=== PATIENT | male | born 1935 | race Caucasian/White ===

== ENCOUNTER 2019-08-16 15:00 | Emergency (ER) | payer OTHER ==
--- NOTE | 2019-08-16 17:06 | RAD REPORT ---
EXAM DESCRIPTION: RAD - Chest Single View - 08/16/2019 5:01 pm CLINICAL HISTORY: COUGH Chest pain. COMPARISON: CHEST SINGLE VIEW dated 01/06/2015; CHEST SINGLE VIEW dated 01/05/2015; CHEST PA AND LAT 2 VIEW dated 07/14/2014 FINDINGS: Portable technique limits examination quality. The lungs are grossly clear. The heart is moderately enlarged with a tortuous thoracic aorta. Dual le ad pacer device is present. IMPRESSION: No acute intrathoracic process suspected.
--- NOTE | 2019-08-16 17:36 | ER ---
Nurse's Notes [facility] Name: Tony Orellana Age: 83 yrs Sex: Male : 1935 Arrival Date: 08/16/2019 Time: 15:03 Bed 14 Private MD: Gianni Carroll V Diagnosis: Acute upper respiratory infection, unspecified Presentation: 08/15 15:20 Chief complaint: Patient states: My grand daughter who is my medical power of contracts attorney, ca1 is positive for Covid-19. Before she quarantined herself we had constant contact. I've been coughing a little bit 2-3 days, no SOB, fever today at 103F. Did not take any Tylenol. Last Sunday, I had a colonoscopy. It got me really tired. I just want to let you know too. Coronavirus screen: Patient reports a cough. Patient denies shortness of breath or difficulty breathing. Patient reports a measured and/or subjective temperature greater than 100.4F. Patient denies travel on a cruise ship or to a country the [facility] currently lists as an affected area. Patient reports contact with known and/or suspected case of COVID-19. Surgical mask in place, instructed to keep at all times and distance self from others in the lobby. Verbalized understanding. Ebola Screen: Patient negative for fever greater than or equal to 101.5 degrees Fahrenheit, and additional compatible Ebola Virus Disease symptoms Patient denies exposure to infectious person. Patient denies travel to an Ebola-affected area in the 21 days before illness onset. No symptoms or risks identified at this time. Initial Sepsis Screen: Does the patient meet any 2 criteria? No. Patient's initial sepsis screen is negative. Does the patient have a suspected source of infection? No. Patient's initial sepsis screen is negative. Risk Assessment: Do you want to hurt yourself or someone else? Patient reports no desire to harm self or others. Onset of symptoms was August 16, 2019. 15:20 Method Of Arrival: Ambulatory ca1 15:20 Acuity: JASON 3 ca1 Triage Assessment: 16:00 General: Appears in no apparent distress. comfortable, Behavior is calm, cooperative. ls4 16:00 Pain: Denies pain. ls4 Historical: - Allergies: 15:29 Tape; ca1 - Home Meds: 15:29 finasteride 5 mg oral tab 1 tab once daily [Active]; losartan 100 mg oral tab 1 tab ca1 once daily [Active]; atorvastatin 40 mg oral tab 1 tab once daily [Active]; gabapentin 100 mg oral cap [Active]; Xarelto 15 mg oral tab [Active]; amlodipine 5 mg tab 1 tab once daily [Active]; hydrochlorothiazide 12.5 mg Oral tab 1 tab once daily [Active]; aspirin 81 mg Oral chew 1 tab once daily [Active]; - PMHx: 15:29 Hypertension; Atrial Fib; Pacemaker; High Cholesterol; ca1 - PSHx: 15:29 Heart stents; Cholecystectomy; ca1 - Immunization history:: Adult Immunizations up to date. - Social history:: Smoking status: Patient denies any tobacco usage or history of. Screenin:56 Abuse screen: Denies threats or abuse. Denies injuries from another. Nutritional ls4 screening: No deficits noted. Tuberculosis screening: No symptoms or risk factors identified. Fall Risk None identified. Assessment: 16:00 General: Appears in no apparent distress. comfortable, Behavior is calm, cooperative. ls4 16:00 Neuro: No deficits noted. Cardiovascular: No deficits noted. Respiratory: No deficits ls4 noted. Derm: No signs and/or symptoms reported regarding the dermatologic system. Musculoskeletal: No deficits noted. No signs and/or symptoms reported regarding the musculoskeletal system. Vital Signs: 15:20 BP 107 / 72; Pulse 56; Resp 18 S; Temp 99.4(O); Pulse Ox 98% on R/A; Weight 81.65 kg ca1 (R); Height 5 ft. 10 in. (177.80 cm) (R); 18:01 BP 110 / 70; Pulse 58; Resp 16; Temp 98.7(O); Pulse Ox 99% on R/A; Pain 0/10; ls4 15:20 Body Mass Index 25.83 (81.65 kg, 177.80 cm) ca1 ED Course: 15:03 Patient arrived in ED. ag5 15:03 Gianni Carroll MD is Private Physician. ag5 15:25 Triage completed. ca1 15:29 Arm band placed on right wrist. ca1 15:52 Juan Arriaga PA is PHCP. cp 15:52 Ammon Kuo MD is Attending Physician. cp 15:55 Duy, Rose, RN is Primary Nurse. ls4 17:00 CXR XRAY In Process Unspecified. EDMS 17:35 Gianni Carroll MD is Referral Physician. cp 17:35 No provider procedures requiring assistance completed. Patient did not have IV access ls4 during this emergency room visit. Administered Medications: No medications were administered Outcome: 17:35 Discharge ordered by MD. cp 18:01 Discharged to home ambulatory. ls4 18:01 Condition: good ls4 18:01 Discharge instructions given to patient, family, Instructed on discharge instructions, safety practices, Demonstrated understanding of instructions, follow-up care. 18:08 Patient left the ED. ls4 Addendum: 08/19/2019 19:44 Addendum: Other Dr. Diamond notified patient of COVID positive results by phone. l p1 Signatures: Dispatcher [employer] EDMS Indira Allen, RN RN lp1 Juan Arriaga, GETACHEW PA Rose Yoder RN RN ls4 Maral Lisa RN RN ca1 Clif De Souza 5
--- NOTE | 2019-08-16 17:36 | EDPHYS ---
Physician Documentation [facility] Name: Tony Orellana Age: 83 yrs Sex: Male : 1935 Arrival Date: 08/16/2019 Time: 15:03 Bed 14 Private MD: Gianni Carroll V ED Physician Ammon Kuo HPI: 08/15 16:15 This 83 yrs old Male presents to ER via Ambulatory with complaints of Fever, cp R/O COVID. 16:15 The patient reports fever, that was measured at 100.3 degrees Fahrenheit. Onset: The cp symptoms/episode began/occurred today. Associated signs and symptoms: Pertinent positives: runny nose, slight cough times 5 days, Pertinent negatives: diarrhea, headache, vomiting. Severity of symptoms: in the emergency department the symptoms have improved mildly. Historical: - Allergies: 15:29 Tape; ca1 - Home Meds: 15:29 finasteride 5 mg oral tab 1 tab once daily [Active]; losartan 100 mg oral tab 1 tab ca1 once daily [Active]; atorvastatin 40 mg oral tab 1 tab once daily [Active]; gabapentin 100 mg oral cap [Active]; Xarelto 15 mg oral tab [Active]; amlodipine 5 mg tab 1 tab once daily [Active]; hydrochlorothiazide 12.5 mg Oral tab 1 tab once daily [Active]; aspirin 81 mg Oral chew 1 tab once daily [Active]; - PMHx: 15:29 Hypertension; Atrial Fib; Pacemaker; High Cholesterol; ca1 - PSHx: 15:29 Heart stents; Cholecystectomy; ca1 - Immunization history:: Adult Immunizations up to date. - Social history:: Smoking status: Patient denies any tobacco usage or history of. ROS: 16:20 Constitutional: Negative for body aches, chills, fever, poor PO intake. cp 16:20 Eyes: Negative for injury, pain, redness, and discharge. cp 16:20 ENT: Positive for rhinorrhea, sore throat, Negative for drainage from ear(s), ear pain, difficulty swallowing, difficulty handling secretions. 16:20 Cardiovascular: Negative for chest pain. 16:20 Respiratory: Positive for cough, Negative for shortness of breath, wheezing. 16:20 Abdomen/GI: Negative for abdominal pain, nausea, vomiting, and diarrhea. 16:20 Skin: Negative for rash. 16:20 Neuro: Negative for altered mental status, headache. 16:20 All other systems are negative. Exam: 16:25 Constitutional: The patient appears in no acute distress, alert, awake, non-toxic, well cp developed, well nourished. 16:25 Head/Face: Normocephalic, atraumatic. cp 16:25 Eyes: Periorbital structures: appear normal, Conjunctiva: normal, no exudate, no injection, Lids and lashes: appear normal, bilaterally. 16:25 ENT: External ear(s): are unremarkable, Ear canal(s): are normal, clear, TM's: dullness, bilaterally, Nose: is normal, Mouth: Lips: moist, Oral mucosa: pink and intact, moist, Posterior pharynx: Airway: no evidence of obstruction, patent, Uvula: normal, swelling, is not appreciated, erythema, is not appreciated, exudate, is not appreciated. 16:25 Neck: ROM/movement: Meningeal signs: are not present, Lymph nodes: no appreciated lymphadenopathy. 16:25 Chest/axilla: Inspection: normal, Palpation: is normal, no crepitus, no tenderness. 16:25 Cardiovascular: Rate: bradycardic, Edema: is not appreciated, JVD: is not appreciated. 16:25 Respiratory: the patient does not display signs of respiratory distress, Respirations: normal, no use of accessory muscles, no retractions, labored breathing, is not present, Breath sounds: decreased breath sounds, are not appreciated, stridor, is not appreciated, wheezing: is not appreciated. 16:25 Abdomen/GI: Exam negative for discomfort, distension, guarding, Inspection: abdomen appears normal. 16:25 Skin: no rash present. Vital Signs: 15:20 BP 107 / 72; Pulse 56; Resp 18 S; Temp 99.4(O); Pulse Ox 98% on R/A; Weight 81.65 kg ca1 (R); Height 5 ft. 10 in. (177.80 cm) (R); 18:01 BP 110 / 70; Pulse 58; Resp 16; Temp 98.7(O); Pulse Ox 99% on R/A; Pain 0/10; ls4 15:20 Body Mass Index 25.83 (81.65 kg, 177.80 cm) ca1 MDM: 15:53 Patient medically screened. 17:35 Data reviewed: vital signs, nurses notes, lab test result(s), radiologic studies, plain cp films, and as a result, I will discharge patient. 17:35 Counseling: I had a detailed discussion with the patient and/or guardian regarding: the cp historical points, exam findings, and any diagnostic results supporting the discharge/admit diagnosis, lab results, radiology results, to return to the emergency department if symptoms worsen or persist or if there are any questions or concerns that arise at home. 08/15 16:10 Order name: COVID-19 08/15 16:10 Order name: Flu 08/15 16:10 Order name: CXR XRAY 08/15 16:10 Order name: Strep 08/15 16:10 Order name: Document PUI#; Complete Time: 17:34 08/15 17:34 Order name: Throat Culture [facility] 08/15 16:10 Order name: Droplet/Contact Precautions; Complete Time: 17:34 08/15 16:10 Order name: Labs collected and sent; Complete Time: 17:34 08/15 16:10 Order name: Notify Health Dept [phone]/ ; Complete Time: 17:34 cp 08/15 16:10 Order name: O2 Per Protocol; Complete Time: 17:34 cp Administered Medications: No medications were administered Disposition: 08/16 17:11 Co-signature as Attending Physician, Ammon Kuo MD. rn Disposition: 08/16/19 17:35 Discharged to Home. Impression: Acute upper respiratory infection, unspecified. - Condition is Stable. - Discharge Instructions: Upper Respiratory Infection, Adult, Viral Respiratory Infection. - Prescriptions for Tessalon Perles 100 mg Oral Capsule - take 1 capsule by ORAL route every 8 hours As needed; 20 capsule. - Medication Reconciliation Form, Thank You Letter, Antibiotic Education, Prescription Opioid Use form. - Follow up: Gianni Carroll MD; When: 1 - 2 days; Reason: Worsening of condition. - Problem is new. - Symptoms are unchanged. Signatures: Dispatcher [employer] EDOR Ammon Kuo MD MD rn Juan Arriaga PA PA cp Rose Gordillo RN RN ls4 Maral Lisa RN RN ca1 Corrections: (The following items were deleted from the chart) 08/15 18:08 17:35 08/16/2019 17:35 Discharged to Home. Impression: Acute upper respiratory ls4 infection, unspecified. Condition is Stable. Forms are Medication Reconciliation Form, Thank You Letter, Antibiotic Education, Prescription Opioid Use. Follow up: Gianni Carroll; When: 1 - 2 days; Reason: Worsening of condition. Problem is new. Symptoms are unchanged. cp
[2019-08-16 18:34] VITALS: BP 107/72; TEMP 99.4; O2SAT 98
== END 2019-08-16 18:08 | disposition home or self-care (01) ==
LOC: ER 15:00
DX: U07.1 COVID-19 (principal); J06.9 Acute upper respiratory infection, unspecified; I10 Essential (primary) hypertension; I48.91 Unspecified atrial fibrillation; Z79.01 Long term (current) use of anticoagulants; Z95.0 Presence of cardiac pacemaker; Z95.818 Presence of other cardiac implants and grafts; Z79.82 Long term (current) use of aspirin; Z91.048 Other nonmedicinal substance allergy status
CPT/HCPCS: 87070; 87081; 87804 ×2; 71045; 99283; U0001

== ENCOUNTER 2020-02-14 07:26 | Emergency (ER) | payer OTHER ==
--- NOTE | 2020-02-14 08:26 | ER ---
Nurse's Notes [facility] Name: Tony Orellana Age: 84 yrs Sex: Male : 1935 Arrival Date: 02/14/2020 Time: 07:27 Bed 17 Private MD: Diagnosis: Gingivitis and periodontal diseases-xarelto therapy;Atrial fibrillation and flutter-hx of a fib Presentation: 02/13 07:36 Chief complaint: Chief complaint: Patient states: "I woke up today and noticed blood on aa5 my pillow, sheets, and my mouth". Pt states "I know I didn't start bleeding until after 4am because I woke up at 4am and drank some water and didn't notice any blood then". Pt reports he is taking Xarelto. 07:36 Coronavirus screen: Client denies travel out of the [place] in the last 14 days. At this aa5 time, the client does not indicate any symptoms associated with coronavirus-19. Ebola Screen: Patient negative for fever greater than or equal to 101.5 degrees Fahrenheit, and additional compatible Ebola Virus Disease symptoms. Initial Sepsis Screen: Does the patient meet any 2 criteria? No. Patient's initial sepsis screen is negative. Does the patient have a suspected source of infection? No. Patient's initial sepsis screen is negative. Risk Assessment: Do you want to hurt yourself or someone else? Patient reports no desire to harm self or others. Onset of symptoms was February 14, 2020. 07:36 Method Of Arrival: Ambulatory aa5 07:36 Acuity: JASON 4 aa5 Triage Assessment: 08:00 General: Appears in no apparent distress. comfortable, Behavior is cooperative, bp appropriate for age, anxious. Pain: Complains of pain in mouth. EENT: Reports BLEEDING WOUND IN MOUTH. Neuro: No deficits noted. Cardiovascular: No deficits noted. Respiratory: No deficits noted. GI: No signs and/or symptoms were reported involving the gastrointestinal system. : No signs and/or symptoms were reported regarding the genitourinary system. Derm: No deficits noted. Musculoskeletal: No deficits noted. Historical: - Allergies: 07:54 Tape; aa5 - Home Meds: 07:54 finasteride 5 mg Oral tab 1 tab once daily [Active]; losartan 100 mg Oral tab 1 tab aa5 once daily [Active]; atorvastatin 40 mg Oral tab 1 tab once daily [Active]; gabapentin 100 mg Oral cap [Active]; Xarelto 15 mg Oral tab [Active]; amlodipine 5 mg tab 1 tab once daily [Active]; hydrochlorothiazide 12.5 mg Oral tab 1 tab once daily [Active]; aspirin 81 mg Oral chew 1 tab once daily [Active]; mitochondrial energy boost [Active]; cosamin Cabara [Active]; - PMHx: 07:54 Atrial Fib; High Cholesterol; Hypertension; Pacemaker; aa5 - PSHx: 07:54 Heart stents; Cholecystectomy; aa5 - Immunization history:: Adult Immunizations unknown. - Social history:: Smoking status: Patient denies any tobacco usage or history of. - Family history:: not pertinent. Screenin:00 Abuse screen: Denies threats or abuse. Denies injuries from another. Nutritional bp screening: No deficits noted. Tuberculosis screening: No symptoms or risk factors identified. Fall Risk None identified. Assessment: 08:00 General: SEE TRIAGE NOTE. bp Vital Signs: 07:36 BP 140 / 80; Pulse 95; Resp 16 S; Temp 97.1(TE); Pulse Ox 99% on R/A; Weight 83.01 kg aa5 (R); Height 5 ft. 10 in. (177.80 cm) (R); Pain 0/10; 08:27 BP 130 / 78; Pulse 64; Resp 16; Temp 97.5; Pulse Ox 97% ; bp 07:36 Body Mass Index 26.26 (83.01 kg, 177.80 cm) aa5 ED Course: 07:27 Patient arrived in ED. as 07:36 Jose Choi, EMILIE is Primary Nurse. bp 07:36 Arm band placed on Patient placed in an exam room, on a stretcher. aa5 07:37 Juan Gamboa MD is Attending Physician. diane 07:49 Triage completed. aa5 08:00 Patient has correct armband on for positive identification. Bed in low position. Call bp light in reach. Side rails up X2. 08:23 Gianni Carroll MD is Referral Physician. diane 08:23 Rikki Goel MD is Referral Physician. diane 08:25 Ambrocio Rodrigues DDS is Referral Physician. diane 08:27 No provider procedures requiring assistance completed. Patient did not have IV access bp during this emergency room visit. Administered Medications: 08:20 Drug: Augmentin 875 mg Route: PO; bp 08:51 Follow up: Response: No adverse reaction bp Outcome: 08:25 Discharge ordered by MD. contreras 08:51 Discharged to home ambulatory. bp 08:51 Condition: stable 08:51 Discharge instructions given to patient, Instructed on discharge instructions, follow up and referral plans. medication usage, Demonstrated understanding of instructions, follow-up care, medications, Prescriptions given X 1. 08:51 Patient left the ED. bp Signatures: Juan Gamboa MD MD cha Martinez, Amelia as Calderon, Audri, RN RN aa5 Jose Choi RN RN bp
--- NOTE | 2020-02-14 08:26 | EDPHYS ---
Physician Documentation [facility] Name: Tony Orellana Age: 84 yrs Sex: Male : 1935 Arrival Date: 02/14/2020 Time: : Bed 17 Private MD: ED Physician Juan Gamboa HPI: 02/13 08:17 This 84 yrs old Male presents to ER via Ambulatory with complaints of Mouth diane Problem - bleeding. 08:17 The patient presents with bleeding. The problem is located in the lower left third diane molar. Onset: The symptoms/episode began/occurred this morning. Duration: The symptoms are continuous, but are markedly better than the original presentation. Modifying factors: The symptoms are alleviated by nothing, the symptoms are aggravated by nothing, chewing. Associated signs and symptoms: The patient has no apparent associated signs or symptoms. Severity of symptoms: At their worst the symptoms were moderate, in the emergency department the symptoms have improved, moderately. The patient has not experienced similar symptoms in the past. Historical: - Allergies: 07:54 Tape; aa5 - Home Meds: 07:54 finasteride 5 mg Oral tab 1 tab once daily [Active]; losartan 100 mg Oral tab 1 tab aa5 once daily [Active]; atorvastatin 40 mg Oral tab 1 tab once daily [Active]; gabapentin 100 mg Oral cap [Active]; Xarelto 15 mg Oral tab [Active]; amlodipine 5 mg tab 1 tab once daily [Active]; hydrochlorothiazide 12.5 mg Oral tab 1 tab once daily [Active]; aspirin 81 mg Oral chew 1 tab once daily [Active]; mitochondrial energy boost [Active]; cosamin Gratci [Active]; - PMHx: 07:54 Atrial Fib; High Cholesterol; Hypertension; Pacemaker; aa5 - PSHx: 07:54 Heart stents; Cholecystectomy; aa5 - Immunization history:: Adult Immunizations unknown. - Social history:: Smoking status: Patient denies any tobacco usage or history of. - Family history:: not pertinent. ROS: 08:17 Constitutional: Negative for fever, chills, and weight loss, Eyes: Negative for injury, diane pain, redness, and discharge, Neck: Negative for injury, pain, and swelling, Cardiovascular: Negative for chest pain, palpitations, and edema, Respiratory: Negative for shortness of breath, cough, wheezing, and pleuritic chest pain, Abdomen/GI: Negative for abdominal pain, nausea, vomiting, diarrhea, and constipation, Back: Negative for injury and pain, MS/Extremity: Negative for injury and deformity, Skin: Negative for injury, rash, and discoloration, Neuro: Negative for headache, weakness, numbness, tingling, and seizure, Psych: Negative for depression, anxiety, suicide ideation, homicidal ideation, and hallucinations, Allergy/Immunology: Negative for hives, rash, and allergies, Endocrine: Negative for neck swelling, polydipsia, polyuria, polyphagia, and marked weight changes. 08:17 : Exam: 08:20 Constitutional: This is a well developed, well nourished patient who is awake, alert, diane and in no acute distress. Head/Face: Normocephalic, atraumatic. Eyes: Pupils equal round and reactive to light, extra-ocular motions intact. Lids and lashes normal. Conjunctiva and sclera are non-icteric and not injected. Cornea within normal limits. Periorbital areas with no swelling, redness, or edema. Neck: Trachea midline, no thyromegaly or masses palpated, and no cervical lymphadenopathy. Supple, full range of motion without nuchal rigidity, or vertebral point tenderness. No Meningismus. Chest/axilla: Normal chest wall appearance and motion. Nontender with no deformity. No lesions are appreciated. Cardiovascular: Regular rate and rhythm with a normal S1 and S2. No gallops, murmurs, or rubs. Normal PMI, no JVD. No pulse deficits. Respiratory: Lungs have equal breath sounds bilaterally, clear to auscultation and percussion. No rales, rhonchi or wheezes noted. No increased work of breathing, no retractions or nasal flaring. Abdomen/GI: Soft, non-tender, with normal bowel sounds. No distension or tympany. No guarding or rebound. No evidence of tenderness throughout. Back: No spinal tenderness. No costovertebral tenderness. Full range of motion. Skin: Warm, dry with normal turgor. Normal color with no rashes, no lesions, and no evidence of cellulitis. MS/ Extremity: Pulses equal, no cyanosis. Neurovascular intact. Full, normal range of motion. Neuro: Awake and alert, GCS 15, oriented to person, place, time, and situation. Cranial nerves II-XII grossly intact. Motor strength 5/5 in all extremities. Sensory grossly intact. Cerebellar exam normal. Normal gait. Psych: Awake, alert, with orientation to person, place and time. Behavior, mood, and affect are within normal limits. 08:20 ENT: Mouth: Lips: normal, Oral mucosa: moist, Gums: bleeding, Tongue: is normal, abscess, is not appreciated, drooling, is not appreciated. Vital Signs: 07:36 BP 140 / 80; Pulse 95; Resp 16 S; Temp 97.1(TE); Pulse Ox 99% on R/A; Weight 83.01 kg aa5 (R); Height 5 ft. 10 in. (177.80 cm) (R); Pain 0/10; 08:27 BP 130 / 78; Pulse 64; Resp 16; Temp 97.5; Pulse Ox 97% ; bp 07:36 Body Mass Index 26.26 (83.01 kg, 177.80 cm) aa5 MDM: 07:37 Patient medically screened. diane 08:21 Differential diagnosis: gingivitis. Data reviewed: vital signs, nurses notes. Data diane interpreted: front desk monitor: rate is 95 beats/min, rhythm is regular, Pulse oximetry: is not applicable for this patient encounter. Test interpretation: by ED physician or midlevel provider:. 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 08:26 ED course: ice water, swish and spit, good hemostasis, plan of follow up discussed, diane will comply. Administered Medications: 08:20 Drug: Augmentin 875 mg Route: PO; bp 08:51 Follow up: Response: No adverse reaction bp Disposition: 02/14/20 08:25 Discharged to Home. Impression: Gingivitis and periodontal diseases - xarelto therapy, Atrial fibrillation and flutter - hx of a fib. - Condition is Stable. - Discharge Instructions: Gingivitis, Gingivitis, [id number]. - Prescriptions for Augmentin 875- 125 mg Oral Tablet - take 1 tablet by ORAL route every 12 hours for 10 days; 20 tablet. - Medication Reconciliation Form, Thank You Letter, Antibiotic Education, Prescription Opioid Use form. - Follow up: Gianni Carroll MD; When: 1 - 2 days; Reason: Recheck today's complaints, Continuance of care, Re-evaluation by your physician. Follow up: Rikki Goel MD; When: 1 - 2 days; Reason: Recheck today's complaints, Continuance of care, Re-evaluation by your physician. Follow up: Ambrocio Rodrigues DDS; When: 1 - 2 days; Reason: Recheck today's complaints, Re-evaluation by your physician. - Problem is new. - Symptoms have improved. Signatures: Juan Gamboa MD MD cha Calderon, Audri, RN RN aa5 Jose Choi RN RN bp Corrections: (The following items were deleted from the chart) 08:51 08:25 02/14/2020 08:25 Discharged to Home. Impression: Gingivitis and periodontal bp diseases - xarelto therapy; Atrial fibrillation and flutter - hx of a fib. Condition is Stable. Forms are Medication Reconciliation Form, Thank You Letter, Antibiotic Education, Prescription Opioid Use. Follow up: Gianni Carroll; When: 1 - 2 days; Reason: Recheck today's complaints, Continuance of care, Re-evaluation by your physician. Follow up: Rikki Goel; When: 1 - 2 days; Reason: Recheck today's complaints, Continuance of care, Re-evaluation by your physician. Follow up: Ambrocio Rodrigues; When: 1 - 2 days; Reason: Recheck today's complaints, Re-evaluation by your physician. Problem is new. Symptoms have improved. diane
[2020-02-14] MEDS ORDERED: AMOX/K CLAV 875 MG TAB ONE (08:35)
[2020-02-14 08:57] VITALS: BP 130/78; TEMP 97.5; O2SAT 97
== END 2020-02-14 08:51 | disposition home or self-care (01) ==
LOC: ER 07:26
DX: K05.10 Chronic gingivitis, plaque induced (principal); K05.6 Periodontal disease, unspecified; I48.91 Unspecified atrial fibrillation; I10 Essential (primary) hypertension; E78.00 Pure hypercholesterolemia, unspecified; Z95.0 Presence of cardiac pacemaker
CPT/HCPCS: 99283

== ENCOUNTER 2021-03-09 21:45 | Emergency (ER) | payer OTHER ==
--- OUTSIDE RECORDS SUMMARY | 2021-03-09 21:50 | XMS REPORT | Continuity of Care Document ---
:1935 Author Organization [facility] t Address [address] [place] [place] [address] Care Team Providers Name Role Phone Glen Cowan Primary Care Physician Stanley HAMMONDS Attending Clinician Unavailable Raslan Attending Clinician Unavailable Julius KOVACS, A Attending Clinician Only, Test Attending Clinician Unavailable Brian KOVACS Attending Clinician BRIAN Attending Clinician Unavailable Pob, Lab Main Attending Clinician Unavailable Doctor Unassigned, Name Attending Clinician Unavailable Stanley HAMMONDS Admitting Clinician Unavailable Physician, Primary or Family Admitting Clinician Unavailsandy Hammonds MD, A Admitting Clinician Payers Payer Name Policy Type Policy Number Effective Date Expiration Date S [place] MEDICARE PART A [id number] 2000 \T\ B 00:00:00 [place] ALEXEI VALDERRAMA [id number] 2013 00:00:00 Problems Condition Condition Condition Status Onset Resolution Last Treating Co mments Source Name Details Category Date Date Treatment Clinician Date No known No known Disease Unive rs active active ity of problems problems [facility] Allergies, Adverse Reactions, Alerts Allergy Allergy Status Severity Reaction(s) Onset Inactive Treating Comm ents Source Name Type Date Date Clinician ADHESIVE DRUG Active High Other-Cmnt Univ ers TAPE-JOSEPH 4-20 ity of ICONES 00:00: [place] 00 [facility] Branch Adhesive Propensi Active Other - See Burn - U nivers Tape-Joseph ty to comments 4-20 like ity of icones adverse 00:00: second [place] reaction 00 degree Medical Branch TAPE DA Active U [facility] 1- Clear 00:00: [place] 00 [facility] adhesive DA Active U [facility] tape - Clear 00:00: [place] 00 [facility] adhesive DA Active U [facility] tape 03-16 Clear 00:00: [place] 00 [facility] No Known DA Active U [facility] Allergie 1-05 Clear s 00:00: [place] 00 [facility] No Known DA Active U [facility] Allergie 1-05 Clear s 00:00: [place] 00 [facility] NO KNOWN Drug Active Univers ALLERGIE Class ity of S [facility] Social History Social Habit Start Date Stop Date Quantity Comments Source Exposure to Not sure [facility] SARS-CoV-2 [facility] (event) [place] History of Smoker University of tobacco use [facility] Tobacco use and 2020-06-22 2020-06-22 Never used Universit y of exposure 00:00:00 00:00:00 [facility] Alcohol intake 2020-06-22 2020-06-22 Current drinker Unive rsity of 00:00:00 00:00:00 of alcohol [facility] (finding) [place] Alcohol Comment 2020-06-09 2020-06-09 seldom Universit y of 00:00:00 00:00:00 [facility] Sex Assigned At [birth year] Universit y of 00:00:00 00:00:00 [facility] Smoking Status Start Date Stop Date Source Unknown if ever smoked Universit y [facility] Former smoker 2020-06-22 00:00:00 2020-06-22 00:00:00 Universi ty [facility] Medications Ordered Filled Start Stop Current Ordering Indication Dosage Frequency Signature Comments Components Source Medication Medication Date Date Medication? Clinician (SIG) Name Name clopidogreL Yes 75mg Take 75 mg Univers 75 mg 5-05 by mouth ity of tablet 16:34: daily. [address] amLODIPine Yes 5mg Take 5 mg Un danny 5 mg tablet 5-05 by mouth ity of 16:34: daily. [place] [address] Medical Branch hydroCHLORO 2020-0 Yes 12.5mg Take 12.5 Univers thiazide 5-05 mg by ity of 12.5 mg 16:34: mouth [place] capsule 21 daily. Medical Branch aspirin 2020-0 Yes 81mg Take 81 mg Univ ers (TESSA LOW 5-05 by mouth. ity of STRENGTH 16:34: [place] ORAL) 21 Medical Branch finasteride 2020-0 Yes 5mg Take 5 mg U nivers 5 mg tablet 5-05 by mouth ity of 16:34: daily. [place] [address] Medical Branch losartan 2020-0 Yes 100mg Take 100 Univ ers 100 mg 5-05 mg by ity of tablet 16:34: mouth [place] 21 daily. Medical Branch atorvastati 0 Yes 40mg Take 40 mg Univers n 40 mg 5-05 by mouth ity of tablet 16:34: at [place] 21 bedtime. Medical Branch gabapentin 2020-0 Yes 100mg Take 100 Un danny 100 mg 5-05 mg by ity of capsule 16:34: mouth [place] 21 daily. Medical Branch clopidogreL 2020-0 Yes 75mg Take 75 mg Univers 75 mg 5-05 by mouth ity of tablet 16:34: daily. [place] [address] Medical Branch amLODIPine 2020-0 Yes 5mg Take 5 mg Un danny 5 mg tablet 5-05 by mouth ity of 16:34: daily. [place] [address] Medical Branch hydroCHLORO 0 Yes 12.5mg Take 12.5 Univers thiazide 5-05 mg by ity of 12.5 mg 16:34: mouth [place] capsule 21 daily. Medical Branch aspirin 2020-0 Yes 81mg Take 81 mg Univ ers (TESSA LOW 5-05 by mouth. ity of STRENGTH 16:34: [place] ORAL) 21 Medical Branch finasteride 2020-0 Yes 5mg Take 5 mg U nivers 5 mg tablet 5-05 by mouth ity of 16:34: daily. [place] [address] Medical Branch losartan 2020-0 Yes 100mg Take 100 Univ ers 100 mg 5-05 mg by ity of tablet 16:34: mouth [place] 21 daily. Medical Branch atorvastati 2020-0 Yes 40mg Take 40 mg Univers n 40 mg 5-05 by mouth ity of tablet 16:34: at [place] 21 bedtime. Medical Branch gabapentin 2020-0 Yes 100mg Take 100 Un danny 100 mg 5-05 mg by ity of capsule 16:34: mouth [place] 21 daily. Medical Branch clopidogreL Yes 75mg Take 75 mg Univers 75 mg 5-05 by mouth ity of tablet 16:34: daily. Medical Branch amLODIPine Yes 5mg Take 5 mg Un danny 5 mg tablet 5-05 by mouth ity of 16:34: daily. Medical Branch hydroCHLORO Yes 12.5mg Take 12.5 Univers thiazide 5-05 mg by ity of 12.5 mg 16:34: mouth [place] capsule 21 daily. Medical Branch aspirin Yes 81mg Take 81 mg Univ ers (TESSA LOW 5-05 by mouth. ity of STRENGTH 16:34: [place] ORAL) 21 Medical Branch finasteride Yes 5mg Take 5 mg U nivers 5 mg tablet 5-05 by mouth ity of 16:34: daily. Medical Branch losartan Yes 100mg Take 100 Univ ers 100 mg 5-05 mg by ity of tablet 16:34: mouth [place] 21 daily. Medical Branch atorvastati Yes 40mg Take 40 mg Univers n 40 mg 5-05 by mouth ity of tablet 16:34: at [place] 21 bedtime. Medical Branch gabapentin Yes 100mg Take 100 Un danny 100 mg 5-05 mg by ity of capsule 16:34: mouth [place] 21 daily. Medical Branch sodium Yes PRN, Univers chloride 5-05 Starting ity of (NS) 15:55: Sun06/23/20 [place] injection 00 at 1055, Medica l Until Branch Discontinu ed, Routine, Intra-op sodium 2020- No PRN, Univers chloride 5-05 05-05 Starting ity of (NS) 15:55: 18:39 [facility] 06/23/20 [place] injection 00 :26 at 1055, Medica l Until [facility] 06/23/20 at 1339, Routine, Intra-op sodium 2020- No PRN, Univers chloride 5-05 05-05 Starting ity of (NS) 15:55: 18:39 [facility] 06/23/20 [place] injection 00 :26 at 1055, Medica l Until [facility] 06/23/20 at 1339, Routine, Intra-op water for Yes PRN, Univers irrigation 5-05 Starting ity o f irrigation 15:54: 06/23/20 [place] solution 00 at 1054, Medical Until Branch Discontinu ed, Routine, Intra-op neomycin-po Yes PRN, Univer s lymyxin-dex 5-05 Starting ity of amethasone 15:54: 06/23/20 [place] (MAXITROL) 00 at 1054, Medic al 3.5 Until Branch mg/g-10,000 Discontinu unit/g-0.1 ed, % Routine, ophthalmic Intra-op ointment EPINEPHrine Yes PRN, Univer s 1:1,000 (1 5-05 Starting ity o f mg/mL) 15:54: 06/23/20 [place] (ADRENALIN) 00 at 1054, Medi darrin injection Until Branch Discontinu ed, Routine, Intra-op DUOVISC Yes PRN, Univers (DUOVISC 5-05 Starting ity of VISCO 15:54: 06/23/20 [place] ELASTIC) 3 00 at 1054, Medic al %-4 %(0.5 Until Branch mL) 1 % Discontinu (0.55 mL) ed, intraocular Routine, injection Intra-op water for 2020- No PRN, Univers irrigation 5-05 05-05 Starting ity of irrigation 15:54: 18:39 06/23/20 [place] solution 00 :26 at 1054, Medical Until Wed Branch 06/23/20 at 1339, Routine, Intra-op neomycin-po 2020- No PRN, Unive rs lymyxin-dex 5-05 05-05 Starting ity of amethasone 15:54: 18:39 06/23/20 [place] (MAXITROL) 00 :26 at 1054, Medic al 3.5 Until Wed Branch mg/g-10,000 06/23/20 at unit/g-0.1 1339, % Routine, ophthalmic Intra-op ointment EPINEPHrine 2020- No PRN, Unive rs 1:1,000 (1 5-05 05-05 Starting ity of mg/mL) 15:54: 18:39 06/23/20 [place] (ADRENALIN) 00 :26 at 1054, Medi darrin injection Until Wed Branc h 06/23/20 at 1339, Routine, Intra-op water for 2020- No PRN, Univers irrigation 06-23 Starting ity of irrigation 15:54: 18:39 06/23/20 [place] solution 00 :26 at 1054, Medical Until Wed Branch 06/23/20 at 1339, Routine, Intra-op neomycin-po 2020- No PRN, Unive rs lymyxin-dex 06-23 Starting ity of amethasone 15:54: 18:39 06/23/20 [place] (MAXITROL) 00 :26 at 1054, Medic al 3.5 Until Sun Branch mg/g-10,000 06/23/20 at unit/g-0.1 1339, % Routine, ophthalmic Intra-op ointment EPINEPHrine 2020- No PRN, Unive rs 1:1,000 (1 06-23 Starting ity of mg/mL) 15:54: 18:39 06/23/20 [place] (ADRENALIN) 00 :26 at 1054, Medi darrin injection Until Wed Branc h 06/23/20 at 1339, Routine, Intra-op DUOVISC 2020- No PRN, Univers (DUOVISC 06-23 Starting ity of VISCO 15:54: 18:39 06/23/20 [place] ELASTIC) 3 00 :26 at 1054, Medic al %-4 %(0.5 Until Wed Branc h mL) 1 % 06/23/20 at (0.55 mL) 1339, intraocular Routine, injection Intra-op DUOVISC 2020- No PRN, Univers (DUOVISC 06-23 Starting ity of VISCO 15:54: 18:39 06/23/20 [place] ELASTIC) 3 00 :26 at 1054, Medic al %-4 %(0.5 Until Wed Branc h mL) 1 % 06/23/20 at (0.55 mL) 1339, intraocular Routine, injection Intra-op dexamethaso Yes PRN, Univer s ne 5-05 Starting ity of (DECADRON 15:53: 06/23/20 [place] PHOSPHATE) 00 at 1053, Medic al injection Until Branch Discontinu ed, Routine, Intra-op ceFAZolin Yes PRN, Univers (ANCEF) 505 Starting ity of injection 15:53: 06/23/20 [place] 00 at 1053, Medical Until Branch Discontinu ed, RUFUS, Intra-op carbachoL Yes PRN, Univers (MIOSTAT) 06-23 Starting ity of 0.01 % 15:53: 06/23/20 [place] intraocular 00 at 1053, Medi darrin injection Until Branch Discontinu ed, Routine, Intra-op balanced Yes PRN, Univers salt irrig 06-23 Starting ity o f soln comb1 15:53: 06/23/20 [place] (BSS PLUS) 00 at 1053, Medic al ophthalmic Until Branch solution Discontinu 500 mL bag ed, Routine, Intra-op dexamethaso 2020- No PRN, Unive rs ne 06-23 05-05 Starting ity of (DECADRON 15:53: 18:39 06/23/20 [place] PHOSPHATE) 00 :26 at 1053, Medic al injection Until Wed Branc h 06/23/20 at 1339, Routine, Intra-op ceFAZolin 2020- No PRN, Univers (ANCEF) 06-23 05-05 Starting ity of injection 15:53: 18:39 06/23/20 [place] 00 :26 at 1053, Medical Until Wed Branch 06/23/20 at 1339, RUFUS, Intra-op carbachoL 2020- No PRN, Univers (MIOSTAT) 06-23 05-05 Starting ity o f 0.01 % 15:53: 18:39 06/23/20 [place] intraocular 00 :26 at 1053, Medi darrin injection Until Wed Branc h 06/23/20 at 1339, Routine, Intra-op balanced 2020- No PRN, Univers salt irrig 06-23 05-05 Starting ity of soln comb1 15:53: 18:39 06/23/20 [place] (BSS PLUS) 00 :26 at 1053, Medic al ophthalmic Until Wed Bran ch solution 06/23/20 at 500 mL bag 1339, Routine, Intra-op dexamethaso 2020- No PRN, Unive rs ne 06-23 Starting ity of (DECADRON 15:53: 18:39 06/23/20 [place] PHOSPHATE) 00 :26 at 1053, Medic al injection Until Sun Branc h 06/23/20 at 1339, Routine, Intra-op ceFAZolin 2020- No PRN, Univers (ANCEF) 06-23 Starting ity of injection 15:53: 18:39 06/23/20 [place] 00 :26 at 1053, Medical Until Wed Branch 06/23/20 at 1339, RUFUS, Intra-op carbachoL 2020- No PRN, Univers (MIOSTAT) 06-23 Starting ity o f 0.01 % 15:53: 18:39 06/23/20 [place] intraocular 00 :26 at 1053, Medi darrin injection Until Sun Branc h 06/23/20 at 1339, Routine, Intra-op balanced 2020- No PRN, Univers salt irrig 06-23 Starting ity of soln comb1 15:53: 18:39 Sun06/23/20 [place] (BSS PLUS) 00 :26 at 1053, Medic al ophthalmic Until Wed Bran ch solution 06/23/20 at 500 mL bag 1339, Routine, Intra-op Hyaluronida Yes PRN, Univer s se, Human 06-23 Starting ity of Recomb. 15:35: 06/23/20 [place] (HYLENEX) 00 at 1035, Medica l injection Until Branch Discontinu ed, Routine, Intra-op eye block Yes PRN, Univers syringe 11 06-23 Starting ity o f mL 15:35: 06/23/20 [place] 00 at 1035, Medical Until Branch Discontinu ed, Intra-op Hyaluronida 2020- No PRN, Unive rs se, Human 06-23 05 Starting ity o f Recomb. 15:35: 18:39 Sun06/23/20 [place] (HYLENEX) 00 :26 at 1035, Medica l injection Until Sun Branc h 06/23/20 at 1339, Routine, Intra-op eye block 2020- No PRN, Univers syringe 11 06-2305 Starting ity of mL 15:35: 18:39 Sun06/23/20 [place] 00 :26 at 1035, Medical Until Sun Branch 06/23/20 at 1339, Intra-op Hyaluronida 2020- No PRN, Unive rs se, Human 06-23 05-05 Starting ity o f Recomb. 15:35: 18:39 Sun06/23/20 [place] (HYLENEX) 00 :26 at 1035, Medica l injection Until Sun Branc h 06/23/20 at 1339, Routine, Intra-op eye block 2020- No PRN, Univers syringe 11 06-23 05-05 Starting ity of mL 15:35: 18:39 Sun06/23/20 [place] 00 :26 at 1035, Medical Until Sun Branch 06/23/20 at 1339, Intra-op tetracaine Yes PRN, Univers (PONTOCAINE 5-05 Starting ity of ) 0.5 % 15:26: Sun06/23/20 [place] ophthalmic 00 at 1026, Medic al drops Until Branch Discontinu ed, Routine, Intra-op tetracaine 2020- No PRN, Univer s (PONTOCAINE 06-23 05-05 Starting ity of ) 0.5 % 15:26: 18:39 Sun06/23/20 [place] ophthalmic 00 :26 at 1026, Medic al drops Until Sun Branch 06/23/20 at 1339, Routine, Intra-op tetracaine 2020- No PRN, Univer s (PONTOCAINE 06-23 05-05 Starting ity of ) 0.5 % 15:26: 18:39 Sun06/23/20 [place] ophthalmic 00 :26 at 1026, Medic al drops Until Sun Branch 06/23/20 at 1339, Routine, Intra-op mydriatic 2020- No .5mL 0.5 mL, Univ ers #5 06-23 0505 Left Eye, ity of ophthalmic 14:00: 13:57 ONCE, 1 [place] solution 00 :00 dose, Wed Medica l 0.5 mL 06/23/20 at Branch syringe 0900, Routine lactated 2020- No 1000mL at 42 Unive rs ringers IV 5-05 05-05 mL/hr, ity of infusion 14:00: 13:57 1,000 mL, [place] 1,000 mL 00 :00 IV Medical Infusion, Branch ONCE, 1 dose, 06/23/20 at 0900, Routine, DSU Pre-op mydriatic 2020- No .5mL 0.5 mL, Univ ers #5 5-05 05-05 Left Eye, ity of ophthalmic 14:00: 13:57 ONCE, 1 [place] solution 00 :00 dose, Wed Medica l 0.5 mL 06/23/20 at Branch syringe 0900, Routine lactated 2020- No 1000mL at 42 Unive rs ringers IV 5-05 05-05 mL/hr, ity of infusion 14:00: 13:57 1,000 mL, [place] 1,000 mL 00 :00 IV Medical Infusion, Branch ONCE, 1 dose, 06/23/20 at 0900, Routine, DSU Pre-op mydriatic 2020- No .5mL 0.5 mL, Univ ers #5 5-05 05-05 Left Eye, ity of ophthalmic 14:00: 13:57 ONCE, 1 [place] solution 00 :00 dose, Wed Medica l 0.5 mL 06/23/20 at Branch syringe 0900, Routine lactated 2020- No 1000mL at 42 Unive rs ringers IV 5-05 05-05 mL/hr, ity of infusion 14:00: 13:57 1,000 mL, [place] 1,000 mL 00 :00 IV Medical Infusion, Branch ONCE, 1 dose, 06/23/20 at 0900, Routine, DSU Pre-op finasteride Yes 5mg Take 5 mg U nivers 5 mg tablet 4-21 by mouth ity of 17:43: daily. [place] [address] Medical Branch losartan 2020-0 Yes 100mg Take 100 Univ ers 100 mg 4-21 mg by ity of tablet 17:43: mouth [place] 23 daily. Medical Branch atorvastati 0 Yes 40mg Take 40 mg Univers n 40 mg 4-21 by mouth ity of tablet 17:43: at [place] 23 bedtime. Medical Branch gabapentin 2020-0 Yes 100mg Take 100 Un danny 100 mg 4-21 mg by ity of capsule 17:43: mouth [place] 23 daily. Medical Branch clopidogreL 2020-0 Yes 75mg Take 75 mg Univers 75 mg 4-21 by mouth ity of tablet 17:43: daily. [place] [address] Medical Branch amLODIPine 2020-0 Yes 5mg Take 5 mg Un danny 5 mg tablet 4-21 by mouth ity of 17:43: daily. [place] [address] Medical Branch hydroCHLORO 0 Yes 12.5mg Take 12.5 Univers thiazide 4-21 mg by ity of 12.5 mg 17:43: mouth [place] capsule 23 daily. Medical Branch aspirin 0 Yes 81mg Take 81 mg Univ ers (TESSA LOW 4-21 by mouth. ity of STRENGTH 17:43: [place] ORAL) Medical Branch finasteride 0 Yes 5mg Take 5 mg U nivers 5 mg tablet 4-21 by mouth ity of 17:43: daily. [place] [address] Medical Branch losartan 0 Yes 100mg Take 100 Univ ers 100 mg 4-21 mg by ity of tablet 17:43: mouth [place] 23 daily. Medical Branch atorvastati 0 Yes 40mg Take 40 mg Univers n 40 mg 4-21 by mouth ity of tablet 17:43: at [place] 23 bedtime. Medical Branch gabapentin 0 Yes 100mg Take 100 Un danny 100 mg 4-21 mg by ity of capsule 17:43: mouth [place] 23 daily. Medical Branch clopidogreL 0 Yes 75mg Take 75 mg Univers 75 mg 4-21 by mouth ity of tablet 17:43: daily. [place] [address] Medical Branch amLODIPine 2020-0 Yes 5mg Take 5 mg Un danny 5 mg tablet 4-21 by mouth ity of 17:43: daily. [place] [address] Medical Branch hydroCHLORO 2020-0 Yes 12.5mg Take 12.5 Univers thiazide 4-21 mg by ity of 12.5 mg 17:43: mouth [place] capsule 23 daily. Medical Branch aspirin 2020-0 Yes 81mg Take 81 mg Univ ers (TESSA LOW 4-21 by mouth. ity of STRENGTH 17:43: [place] ORAL) Medical Branch finasteride Yes 5mg Take 5 mg U nivers 5 mg tablet 4-21 by mouth ity of 17:43: daily. [place] [address] Medical Branch losartan Yes 100mg Take 100 Univ ers 100 mg 4-21 mg by ity of tablet 17:43: mouth [place] 23 daily. Medical Branch atorvastati Yes 40mg Take 40 mg Univers n 40 mg 4-21 by mouth ity of tablet 17:43: at [place] 23 bedtime. Medical Branch gabapentin Yes 100mg Take 100 Un danny 100 mg 4-21 mg by ity of capsule 17:43: mouth [place] 23 daily. Medical Branch clopidogreL Yes 75mg Take 75 mg Univers 75 mg 4-21 by mouth ity of tablet 17:43: daily. [place] [address] Medical Branch amLODIPine Yes 5mg Take 5 mg Un danny 5 mg tablet 4-21 by mouth ity of 17:43: daily. [place] [address] Medical Branch hydroCHLORO Yes 12.5mg Take 12.5 Univers thiazide 4-21 mg by ity of 12.5 mg 17:43: mouth [place] capsule 23 daily. Medical Branch aspirin Yes 81mg Take 81 mg Univ ers (TESSA LOW 4-21 by mouth. ity of STRENGTH 17:43: [place] ORAL) Medical Branch tetracaine Yes PRN, Univers (PONTOCAINE 4-21 Starting ity of ) 0.5 % 16:37: Sun [place] ophthalmic 00 06/09/20 at Med ical drops 1137, Branch Until Discontinu ed, Routine, Intra-op tetracaine 2020- No PRN, Univer s (PONTOCAINE 06-09 04-21 Starting ity of ) 0.5 % 16:37: 19:43 Sun [place] ophthalmic 00 :23 06/09/20 at Med ical drops 1137, Branch Until Sun06/09/20 at 1443, Routine, Intra-op water for 0 Yes PRN, Univers irrigation 4-21 Starting ity o f irrigation 16:13: Sun [place] solution 00 06/09/20 at Medic al 1113, Branch Until Discontinu ed, Routine, Intra-op sodium Yes PRN, Univers chloride 06-09 Starting ity of (NS) 16:13: Wed [place] injection 00 06/09/20 at [facility] darrin 1113, Branch Until Discontinu ed, Routine, Intra-op neomycin-po Yes PRN, Univer s lymyxin-dex 06-09 Starting ity of amethasone 16:13: Wed [place] (MAXITROL) 00 06/09/20 at [facility] ical 3.5 1113, Branch mg/g-10,000 Until unit/g-0.1 Discontinu % ed, ophthalmic Routine, ointment Intra-op Hyaluronida Yes PRN, Univer s se, Human 06-09 Starting ity of Recomb. 16:13: Wed [place] (HYLENEX) 00 06/09/20 at [facility] injection 1113, Branch Until Discontinu ed, Routine, Intra-op water for 2020- No PRN, Univers irrigation 06-09 Starting ity of irrigation 16:13: 19:43 Wed [place] solution 00 :23 06/09/20 at [facility] al 1113, Branch Until Sun06/09/20 at 1443, Routine, Intra-op sodium 2020- No PRN, Univers chloride 06-09 Starting ity of (NS) 16:13: 19:43 Wed [place] injection 00 :23 06/09/20 at [facility] darrin 1113, Branch Until Sun06/09/20 at 1443, Routine, Intra-op neomycin-po 2020- No PRN, Unive rs lymyxin-dex 06-09 Starting ity of amethasone 16:13: 19:43 Wed [place] (MAXITROL) 00 :23 06/09/20 at Med ical 3.5 1113, Branch mg/g-10,000 Until Wed unit/g-0.1 06/09/20 at % 1443, ophthalmic Routine, ointment Intra-op Hyaluronida 2020- No PRN, Unive rs se, Human 06-09 Starting ity o f Recomb. 16:13: 19:43 Wed [place] (HYLENEX) 00 :23 06/09/20 at [facility] injection 1113, Branch Until Sun06/09/20 at 1443, Routine, Intra-op eye block 0 Yes PRN, Univers syringe 11 06-09 Starting ity o f mL 16:11: Sun [place] 00 06/09/20 at [facility] 1111, [place] Until Discontinu ed, Intra-op eye block 2020- No PRN, Univers syringe 11 06-09 Starting ity of mL 16:11: 19:43 Sun [place] 00 :23 06/09/20 at [place] [address], Branch Until Sun06/09/20 at 1443, Intra-op EPINEPHrine Yes PRN, Univer s 1:1,000 (1 06-09 Starting ity o f mg/mL) 16:09: Sun (ADRENALIN) 06/09/20 at Wa dical injection 1109, [place] Until Discontinu ed, Routine, Intra-op DUOVISC Yes PRN, Univers (DUOVISC 06-09 Starting ity of VISCO 16:09: [place] ELASTIC) 3 00 06/09/20 at [facility] ical %-4 %(0.5 1109, [place] mL) 1 % Until (0.55 mL) Discontinu intraocular ed, injection Routine, Intra-op dexamethaso Yes PRN, Univer s ne 06-09 Starting ity of (DECADRON 16:09: Sun [place] PHOSPHATE) 00 06/09/20 at [facility] ical injection 1109, [place] Until Discontinu ed, Routine, Intra-op ceFAZolin Yes PRN, Univers (ANCEF) 06-09 Starting ity of injection 16:09: Sun [place] 06/09/20 at [place] [id number], [place] Until Discontinu ed, RUFUS, Intra-op EPINEPHrine 2020- No PRN, Unive rs 1:1,000 (1 06-09 Starting ity of mg/mL) 16:09: 19:43 Sun [place] (ADRENALIN) 00 :23 06/09/20 at Wa dical injection 1109, Branch Until Sun06/09/20 at 1443, Routine, Intra-op DUOVISC 2020- No PRN, Univers (DUOVISC 06-09 Starting ity of VISCO 16:09: 19:43 [facility] ELASTIC) 3 00 :23 06/09/20 at [facility] %-4 %(0.5 1109, Branch mL) 1 % Until Wed (0.55 mL) 06/09/20 at intraocular 1443, injection Routine, Intra-op dexamethaso 2020- No PRN, Unive rs ne 06-09 Starting ity of (DECADRON 16:09: 19:43 [facility] PHOSPHATE) 00 :23 06/09/20 at [facility] ical injection 1109, Branch Until Sun06/09/20 at 1443, Routine, Intra-op ceFAZolin 2020- No PRN, Univers (ANCEF) 06-09 Starting ity of injection 16:09: 19:43 [facility] [place] 00 :23 06/09/20 at [facility] 1109, Branch Until Sun06/09/20 at 1443, RUFUS, Intra-op carbachoL Yes PRN, Univers (MIOSTAT) 06-09 Starting ity of 0.01 % 16:08: Sun [place] intraocular 00 06/09/20 at Wa dical injection 1108, Branch Until Discontinu ed, Routine, Intra-op carbachoL 2020- No PRN, Univers (MIOSTAT) 06-09 Starting ity o f 0.01 % 16:08: 19:43 [facility] [place] intraocular 00 :23 06/09/20 at [place] injection 1108, Branch Until Sun06/09/20 at 1443, Routine, Intra-op balanced Yes PRN, Univers salt irrig 06-09 Starting ity o f soln comb1 16:07: [facility] (BSS PLUS) 00 06/09/20 at [facility] ical ophthalmic 1107, Branch solution Until 500 mL bag Discontinu ed, Routine, Intra-op balanced 2020- No PRN, Univers salt irrig 06-09 Starting ity of soln comb1 16:07: 19:43 [facility] (BSS PLUS) 00 :23 06/09/20 at [facility] ical ophthalmic 1107, Branch solution Until Wed 500 mL bag 06/09/20 at 1443, Routine, Intra-op mydriatic 2020- No .5mL 0.5 mL, Univ ers #5 06-09 Right Eye, ity of ophthalmic 14:45: 14:53 ONCE, 1 [place] solution 00 :00 dose, Wed Medica l 0.5 mL 06/09/20 at Branch syringe 0945, Routine, DSU Pre-op mydriatic No .5mL 0.5 mL, Univ ers #5 06-09 Right Eye, ity of ophthalmic 14:45: 14:53 ONCE, 1 [place] solution 00 :00 dose, Wed Medica l 0.5 mL 06/09/20 at Branch syringe 0945, Routine, DSU Pre-op Immunizations Ordered Filled Immunization Date Status Comments [facility] e Immunization Name Name SARS-COV-2 COVID-19 2020-05-08 Completed Unive rsity of PFIZER VACCINE 00:00:00 [facility] SARS-COV-2 COVID-19 2020-05-08 Completed Unive rsity of PFIZER VACCINE 00:00:00 [facility] SARS-COV-2 COVID-19 2020-05-08 Completed Unive rsity of PFIZER VACCINE 00:00:00 [facility] SARS-COV-2 COVID-19 2020-05-08 Completed Unive rsity of PFIZER VACCINE 00:00:00 [facility] SARS-COV-2 COVID-19 2020-05-08 Completed Unive rsity of PFIZER VACCINE 00:00:00 [facility] SARS-COV-2 COVID-19 2020-05-08 Completed Unive rsity of PFIZER VACCINE 00:00:00 [facility] SARS-COV-2 COVID-19 2020-05-08 Completed Unive rsity of PFIZER VACCINE 00:00:00 [facility] SARS-COV-2 COVID-19 2020-05-08 Completed Unive rsity of PFIZER VACCINE 00:00:00 [facility] SARS-COV-2 COVID-19 2020-05-08 Completed Unive rsity of PFIZER VACCINE 00:00:00 [facility] SARS-COV-2 COVID-19 2020-04-17 Completed Unive rsity of PFIZER VACCINE 00:00:00 [facility] SARS-COV-2 COVID-19 2020-04-17 Completed Unive rsity of PFIZER VACCINE 00:00:00 [place] [facility] SARS-COV-2 COVID-19 2020-04-17 Completed Unive rsity of PFIZER VACCINE 00:00:00 [facility] SARS-COV-2 COVID-19 2020-04-17 Completed Unive rsity of PFIZER VACCINE 00:00:00 [facility] SARS-COV-2 COVID-19 2020-04-17 Completed Unive rsity of PFIZER VACCINE 00:00:00 [facility] SARS-COV-2 COVID-19 2020-04-17 Completed Unive rsity of PFIZER VACCINE 00:00:00 [facility] SARS-COV-2 COVID-19 2020-04-17 Completed Unive rsity of PFIZER VACCINE 00:00:00 [facility] SARS-COV-2 COVID-19 2020-04-17 Completed Unive rsity of PFIZER VACCINE 00:00:00 [facility] SARS-COV-2 COVID-19 2020-04-17 Completed Unive rsity of PFIZER VACCINE 00:00:00 [facility] Vital Signs Vital Name Observation Time Observation Value Comments Source Systolic blood 2020-06-23 16:17:00 140 mm[Hg] Univer sity of pressure [facility] Diastolic blood 2020-06-23 16:17:00 67 mm[Hg] Unive rsity of pressure [facility] Heart rate 2020-06-23 16:17:00 60 /min [facility] Oxygen saturation in 2020-06-23 16:17:00 97 /min [facility] Arterial blood by [facility] Pulse oximetry Branch Respiratory rate 2020-06-23 16:12:00 20 /min [facility] Body temperature 2020-06-23 16:06:00 36.67 Nicole [facility] Body height 2020-06-22 18:45:00 177.8 cm [facility] Body weight 2020-06-22 18:45:00 85.73 kg [facility] BMI 2020-06-22 18:45:00 27.12 kg/m2 [facility] Systolic blood 2020-06-23 13:44:00 147 mm[Hg] Univer sity of pressure [facility] Diastolic blood 2020-06-23 13:44:00 70 mm[Hg] Unive rsity of pressure [facility] Heart rate 2020-06-23 13:44:00 60 /min [facility] Body temperature 2020-06-23 13:44:00 36.5 Nicole [facility] Respiratory rate 2020-06-23 13:44:00 16 /min [facility] Oxygen saturation in 2020-06-23 13:44:00 99 /min [facility] Arterial blood by [place] [facility] Pulse oximetry [facility] Systolic blood 2020-06-23 13:44:00 147 mm[Hg] Univer sity of pressure [facility] Diastolic blood 2020-06-23 13:44:00 70 mm[Hg] Unive rsity of pressure [facility] Heart rate 2020-06-23 13:44:00 60 /min [facility] Body temperature 2020-06-23 13:44:00 36.5 Nicole [facility] Respiratory rate 2020-06-23 13:44:00 16 /min Univ [facility] Oxygen saturation in 2020-06-23 13:44:00 99 /min [facility] Arterial blood by [place] [facility] Body height 2020-06-22 18:45:00 177.8 cm [facility] Body weight 2020-06-22 18:45:00 85.73 kg [facility] BMI 2020-06-22 18:45:00 27.12 kg/m2 [facility] Body height 2020-06-22 18:45:00 177.8 cm [facility] Body weight 2020-06-22 18:45:00 85.73 kg [facility] BMI 2020-06-22 18:45:00 27.12 kg/m2 [facility] Systolic blood 2020-06-23 13:44:00 147 mm[Hg] Univer sity of pressure [facility] Diastolic blood 2020-06-23 13:44:00 70 mm[Hg] Unive rsity of pressure [facility] Heart rate 2020-06-23 13:44:00 60 /min [facility] Body temperature 2020-06-23 13:44:00 36.5 Nicole [facility] Respiratory rate 2020-06-23 13:44:00 16 /min Univ [facility] Oxygen saturation in 2020-06-23 13:44:00 99 /min [facility] Arterial blood by [facility] Pulse oximetry Branch Systolic blood 2020-06-23 13:44:00 147 mm[Hg] Univer sity of pressure [facility] Diastolic blood 2020-06-23 13:44:00 70 mm[Hg] Unive rsity of pressure [facility] Heart rate 2020-06-23 13:44:00 60 /min [facility] Body temperature 2020-06-23 13:44:00 36.5 Nicole [facility] Respiratory rate 2020-06-23 13:44:00 16 /min Univ [facility] Oxygen saturation in 2020-06-23 13:44:00 99 /min [facility] Arterial blood by [facility] Pulse oximetry Branch Body height 2020-06-22 18:45:00 177.8 cm [facility] Body weight 2020-06-22 18:45:00 85.73 kg [facility] BMI 2020-06-22 18:45:00 27.12 kg/m2 [facility] Body height 2020-06-22 18:45:00 177.8 cm [facility] Body weight 2020-06-22 18:45:00 85.73 kg [facility] BMI 2020-06-22 18:45:00 27.12 kg/m2 [facility] Systolic blood 2020-06-09 17:29:00 140 mm[Hg] Univer sity of pressure [facility] Diastolic blood 2020-06-09 17:29:00 75 mm[Hg] Unive rsity of pressure [facility] Heart rate 2020-06-09 17:29:00 66 /min [facility] Respiratory rate 2020-06-09 17:29:00 16 /min [facility] Oxygen saturation in 2020-06-09 17:29:00 98 /min [facility] Arterial blood by [facility] Pulse oximetry Branch Body temperature 2020-06-09 17:17:00 36.5 Nicole [facility] height 2020-06-07 20:11:00 178 cm Universi ty of [facility] Body weight 2020-06-07 20:11:00 82 kg Universi ty of [facility] BMI 2020-06-07 20:11:00 25.88 kg/m2 Universi ty [facility] Systolic blood 2020-06-09 14:46:00 141 mm[Hg] Univer sity of pressure [facility] Diastolic blood 2020-06-09 14:46:00 59 mm[Hg] Unive rsity of [facility] Heart rate 2020-06-09 14:46:00 68 /min Universi [facility] Body temperature 2020-06-09 14:46:00 36.78 Nicole [facility] Respiratory rate 2020-06-09 14:46:00 16 /min [facility] Oxygen saturation in 2020-06-09 14:46:00 99 /min [facility] Arterial blood by [facility] Pulse oximetry Branch Body height 2020-06-07 20:11:00 178 cm Universi ty of [facility] Body weight 2020-06-07 20:11:00 82 kg Universi [facility] BMI 2020-06-07 20:11:00 25.88 kg/m2 [facility] Procedures Procedure Date / Time Performing Source Performed Clinician PHACOEMULSIFICATION OF 2020-06-23 Bhargav Hammonds [facility] CATARACT WITH INTRAOCULAR 15:14:00 [facility] [place] LENS IMPLANT PHACOEMULSIFICATION OF 2020-06-23 Bhargav Hammonds [facility] CATARACT WITH INTRAOCULAR 15:14:00 [facility]ica [facility] [place] LENS IMPLANT NOTICE OF PRIVACY PRACTICES 2020-06-22 Doctor Unassigned, [facility] 15:55:36 [facility] NOTICE OF PRIVACY PRACTICES 2020-06-22 Doctor Unassigned, [facility] 15:55:36 [place] [facility] [place] NOTICE OF PRIVACY PRACTICES 2020-06-22 Doctor Unassigned, [facility] 15:55:36 [facility] CONSENT/REFUSAL FOR DIAGNOSIS 2020-06-22 Doctor Unassigned, [facility] 15:53:50 [facility] CONSENT/REFUSAL FOR DIAGNOSIS 2020-06-22 Doctor Unassigned, [facility] 15:53:50 [facility] CONSENT/REFUSAL FOR DIAGNOSIS 2020-06-22 Doctor Unassigned, [facility] 15:53:50 [facility] ASSIGNMENT OF BENEFITS 2020-06-22 Doctor Unassigned, [facility] 15:53:32 [facility] ASSIGNMENT OF BENEFITS 2020-06-22 Doctor Unassigned, [facility] 15:53:32 [facility] ASSIGNMENT OF BENEFITS 2020-06-22 Doctor Unassigned, [facility] 15:53:32 [facility] PHACOEMULSIFICATION OF 2020-06-09 Bhargav Hammonds [facility] CATARACT WITH INTRAOCULAR 16:29:00 Medica l Branch LENS IMPLANT ASSIGNMENT OF BENEFITS 2020-06-04 Doctor Unassigned, [facility] 18:15:49 [facility] [id number] 2020-03-18 RASSA [facility] 00:00:00 [facility] Plan of Care Planned Activity Planned Date Details Comments Source Future Scheduled 2021-06-23 Depression screening [facility] Test 00:00:00 (procedure) [code = Medical Branch [id number]] Future Scheduled 2020-10-20 INFLUENZA VACCINE [facility] Test 00:00:00 (Season Ended) [code Medical Branch = INFLUENZA VACCINE (Season Ended)] Future Scheduled 2000-12-15 Medicare Annual [facility] Test 00:00:00 Wellness Visit Medical [facility] (procedure) [code = [id number]] Future Scheduled 2000-12-15 P[facility]OCCAL [facility]ACCINES [facility]00 65+ (1 of 1 - PPSV23) Medica l Branch [code = PNEUMOCOCCAL VACCINES 65+ (1 of 1 - PPSV23)] Future Scheduled 1985-12-15 [facility] Re[facility] Test 00:00:00 Vaccine (SHINGRIX) (1 Medica l Branch of 2) [code = Zoster Recombinant Vaccine (SHINGRIX) (1 of 2)] Future Scheduled 1954-12-15 DTaP,Tdap,and Td Univers [facility] Test 00:00:00 Vaccines (1 - Tdap) Medical Branch [code = DTaP,Tdap,and Td Vaccines (1 - Tdap)] Encounters Start End Encounter Admission Attending Care Care Encounter Source Date/Time Date/Time Type Type Clinicians Facility Department ID 2020-12-19 Outpatient Anil HAMMONDS [email or web address] TANNER [id number] Univers 15:52:21 [facility] 2020-12-19 Outpatient Anil HAMMONDS [facility] [[email or web address] OPH [id number] Univers 13:26:42 [facility] 2020-04-27 Inpatient Raslan, [facility] OUTD [id number] [facility] 12:00:00 Rikki [id number] [facility] 2020-04-26 Inpatient Raslan, [facility]AC[facility] OUTD [id number] [facility] 15:30:00 Rikki [id number] [facility] 2020-03-18 Inpatient Raslan, [facility] OUTD [id number] [facility] 15:50:00 Rikki [id number] [facility] 2020-03-16 Inpatient Raslan, [facility] OUTD [id number] [facility] 11:30:00 Rikki [id number] [facility] 2020-06-23 2020-06-23 [facility] [id number] Univers 08:34:00 11:32:00 Encounter Bharagv Anand [id number] [facility] [id number] [facility] 071 Branch 2020-06-23 2020-06-23 [facility] [id number] Univers 10:11:00 10:52:00 Bhargav Anand [id number] [id number] [id number] [facility] 020 Branch 2020-06-22 2020-06-22 Laboratory Only, Adc Test [facility] [[email or web address]] [id number]. [id number] Univers 10:52:02 11:07:02 Only Bhargav Hammonds 350.1.13.1 0 [place] [phone] [place] [address] Branch 2020-06-22 2020-06-22 Outpatient R [facility] [id number] Univers 10:45:00 10:45:00 [id number] ity [facility] 2020-06-22 2020-06-22 [facility] [id number] Univers 10:45:00 10:45:00 BHARGAV erlin [facility] 2020-06-09 2020-06-09 Hospital [facility] [id number] Univers 09:33:00 12:43:00 Encounter Bhargav Anand [id number] [place] [id number] [facility] 071 Branch 2020-06-09 2020-06-09 Surgery [facility] [id number] Univers 11:23:00 12:03:00 Bhargav Anand [id number] [place] [id number] [facility] 020 Branch 2020-06-08 2020-06-08 Laboratory Only, Adc Test [facility] [[email or web address]] 1.2.840. 114 [id number] Univers 10:14:03 10:29:03 Only Luis Armando Gonzalez [id number] [place] [id number] [address] 2020-06-08 2020-06-08 Outpatient R [facility] [id number] Univers 10:15:00 10:15:00 [id number] ity [facility] 2020-06-08 2020-06-08 Outpatient R BRIAN [facility] [id number] Univers 10:15:00 10:15:00 LUIS ARMANDO erlin [facility] 2020-06-04 2020-06-[address] [place], Adc Lab Main [facility] [[email or web address]] [id number] Univers 13:27:34 13:42:34 Visit Bhargav Hammonds 350.1.13.1 0 [id number] [id number] [place] dical nal [address] Branch [facility] 2020-06-04 2020-06-04 Outpatient R JULIUS [facility] [id number] Univers 11:45:00 11:45:00 BHARGAV iterlin of [facility] 2020-06-04 2020-06-04 Orders Doctor LENA [id number] Univers 00:00:00 00:00:00 Only Unassigned, ADRIÁN 350.1.13.[address] [place] [facility] 4.2.7.2.686 Dip[place] as [id number] [place] [address] Branch 2020-02-24 2020-02-24 [id number] 10:30:00 10:30:00 Rikki [id number] [facility] Results Test Description Test Time Test Comments Results Result Comments Source BASIC METABOLIC PANEL 2020-04-26 12:01:00 Test Item Value Reference Range Interpretation Comme nts SODIUM (test code = NA) 142 mEq/L 134-147 N POTASSIUM (test code = K) 3.6 mEq/L 3.4-5.0 N CHLORIDE (test code = CL) 109 mEq/L 100-108 H CARBON DIOXIDE (test code = CO2) 29 mEq/l 21-33 N ANION GAP (test code = GAP) 8 0-20 N GLUCOSE (test code = GLU) 114 mg/dL 70-110 H BLOOD UREA NITROGEN (test code = 18 mg/dL 7-18 N BUN) GLOMERULAR FILTRATION RATE (test 63.8 70-80 L Units of measure = ml/min/1.73 code = GFR) m2 CREATININE (test code = CREAT) 1.1 mg/dL 0.6-1.3 N CALCIUM (test code = CA) 9.0 mg/dL 8.0-10.5 N PROTHROMBIN [id number] 11:59:00 Test Item Value Reference Range Interpretation Comments PROTHROMBIN TIME 20.9 SECONDS 9.3-12.9 H PATIENT (test code = PTP) INTERNATIONAL NORMAL 1.9 0.8-1.2 H TARGET RATIO (test code = INR BY IN DICATION INR) Indication INR1. Prophyl axis of venous thrombos is 2.0 - 3. 0 (orthopedic tanner giles), Prophylaxis of venous thrombos is (other than hig h-risk surgery), Erica tment of Deep Vein Thrombosis/Pulm onary Embolism, Preve ntion of systemic emb olism - Tissue heart va lves, Acute Myocardia l Infarction (to prevent systemic embo lism), Valvular heart disease, Atri al Fibrillation, Bileaflet mecha nical valve in aortic position.2. Mec hanical prosthetic valv es (high risk), 2.5 - 3.5 Presence of Lupus Anticoagu lant or Antiphospholi pid Antibodies, Pre vention of systemic e mbolism - Acute Myocard ial Infarction (t o prevent recurre nt infarct). CBC W/AUTO [id number] 11:54:00 Test Item Value Reference Range Interpretation Comments WHITE BLOOD CELL (test code = 7.3 x10 3/uL 4.5-11.0 N WBC) RED BLOOD CELL (test code = 3.98 x10 6/uL 4.00-5.60 L RBC) HEMOGLOBIN (test code = HGB) 11.9 g/dL 12.5-16.9 L HEMATOCRIT (test code = HCT) 36.6 % 37.5-50.7 L MEAN CELL VOLUME (test code = 92.0 fL 81.0-99.0 N MCV) MEAN CELL HGB (test code = MCH) 29.9 pg 27.0-33.0 N MEAN CELL HGB CONCETRATION 32.5 g/dL 33.0-37.0 L (test code = MCHC) RED CELL DISTRIBUTION WIDTH CV 13.1 % 11.5-14.5 N (test code = RDW) RED CELL DISTRIBUTION WIDTH SD 43.8 fL 37.0-54.0 N (test code = RDW-SD) PLATELET COUNT (test code = 292 x10 3/uL 150-400 N PLT) MEAN PLATELET VOLUME (test code 9.6 fL 7.0-9.0 H = MPV) NEUTROPHIL % (test code = NT%) 64.0 % 56.0-77.0 N IMMATURE GRANULOCYTE % (test 0.3 % 0.0-2.0 N code = IG%) LYMPHOCYTE % (test code = LY%) 26.2 % 14.0-32.0 N MONOCYTE % (test code = MO%) 6.1 % 4.8-9.0 N EOSINOPHIL % (test code = EO%) 2.8 % 0.3-3.7 N BASOPHIL % (test code = BA%) 0.6 % 0.0-2.0 N NUCLEATED RBC % (test code = 0.0 % 0-0 N NRBC%) NEUTROPHIL # (test code = NT#) 4.66 x10 3/uL 2.0-7.6 N IMMATURE GRANULOCYTE # (test 0.02 x10 3/uL 0.00-0.03 N code = IG#) LYMPHOCYTE # (test code = LY#) 1.90 x10 3/uL 1.0-3.8 N MONOCYTE # (test code = MO#) 0.44 x10 3/uL 0.1-0.8 N EOSINOPHIL # (test code = EO#) 0.20 x10 3/uL 0.0-0.2 N BASOPHIL # (test code = BA#) 0.04 x10 3/uL 0.0-0.2 N NUCLEATED RBC # (test code = 0.00 x10 3/uL 0.0-0.1 N NRBC#) MANUAL DIFF REQUIRED (test code NO = MDIFF) CBC W/AUTO [id number] 11:48:00 Test Item Value Reference Range Interpretation Comments WHITE BLOOD CELL (test code = x10 3/uL 4.5-11.0 WBC) RED BLOOD CELL (test code = RBC) x10 6/uL 4.00-5.60 HEMOGLOBIN (test code = HGB) g/dL 12.5-16.9 HEMATOCRIT (test code = HCT) % 37.5-50.7 MEAN CELL VOLUME (test code = fL 81.0-99.0 MCV) MEAN CELL HGB (test code = MCH) pg 27.0-33.0 MEAN CELL HGB CONCETRATION (test g/dL 33.0-37.0 code = MCHC) RED CELL DISTRIBUTION WIDTH CV % 11.5-14.5 (test code = RDW) PLATELET COUNT (test code = PLT) 292 x10 3/uL 150-400 N NEUTROPHIL % (test code = NT%) % 56.0-77.0 LYMPHOCYTE % (test code = LY%) % 14.0-32.0 NEUTROPHIL # (test code = NT#) x10 3/uL 2.0-7.6 LYMPHOCYTE # (test code = LY#) x10 3/uL 1.0-3.8 MANUAL DIFF REQUIRED (test code = MDIFF) COVID 19 Asymptomatic IH [id number] 11:26:00 Test Item Value Reference Range Interpretation Comments COVID 19 Asymptomatic Negative Negative A nega tive result is IH AG (test code = presumpti ve and should COVNONPUIAG) be confirmedwit h an FDA authorized mole cular assay, if neces christiano forpatient sarah gement.A positive result does not rule out co-inf ections withother patho gens.This test detects jose th viable (live) and non-viable,SARS -CoV, and SARS-CoV-2. Damian t performance dep ends on theamount of vi joyce (antigen) in th e sample.This damian t has not been FDA cleare d or approved; the t est hasbeen authori zed by FDA under an Em ergency Use Authorizati on(EUA) for use by labo ratories certified under the CLIA thatmeet the requirements to perform moderate, high or waivedcomplexit y tests. BASIC METABOLIC [id number] 08:09:00 Test Item Value Reference Range Interpretation Comments SODIUM (test code = NA) 140 mEq/L 134-147 N POTASSIUM (test code = 3.6 mEq/L 3.4-5.0 N K) CHLORIDE (test code = 109 mEq/L 100-108 H CL) CARBON DIOXIDE (test 24 mEq/l 21-33 N code = CO2) ANION GAP (test code = 11 0-20 N GAP) GLUCOSE (test code = 199 mg/dL 70-110 H GLU) BLOOD UREA NITROGEN 20 mg/dL 7-18 H (test code = BUN) GLOMERULAR FILTRATION 63.8 70-80 L Units of measure = RATE (test code = GFR) ml/mi n/1.73 m2 CREATININE (test code = 1.1 mg/dL 0.6-1.3 N CREAT) CALCIUM (test code = 8.8 mg/dL 8.0-10.5 N CA) CBC W/AUTO [id number] 07:10:00 Test Item Value Reference Range Interpretation Comments WHITE BLOOD CELL (test code = 9.4 x10 3/uL 4.5-11.0 N WBC) RED BLOOD CELL (test code = 3.79 x10 6/uL 4.00-5.60 L RBC) HEMOGLOBIN (test code = HGB) 11.7 g/dL 12.5-16.9 L HEMATOCRIT (test code = HCT) 34.8 % 37.5-50.7 L MEAN CELL VOLUME (test code = 91.8 fL 81.0-99.0 N MCV) MEAN CELL HGB (test code = MCH) 30.9 pg 27.0-33.0 N MEAN CELL HGB CONCETRATION 33.6 g/dL 33.0-37.0 N (test code = MCHC) RED CELL DISTRIBUTION WIDTH CV 12.9 % 11.5-14.5 N (test code = RDW) RED CELL DISTRIBUTION WIDTH SD 43.1 fL 37.0-54.0 N (test code = RDW-SD) PLATELET COUNT (test code = 304 x10 3/uL 150-400 N PLT) MEAN PLATELET VOLUME (test code 9.8 fL 7.0-9.0 H = MPV) NEUTROPHIL % (test code = NT%) 86.4 % 56.0-77.0 H IMMATURE GRANULOCYTE % (test 0.3 % 0.0-2.0 N code = IG%) LYMPHOCYTE % (test code = LY%) 10.6 % 14.0-32.0 L MONOCYTE % (test code = MO%) 2.6 % 4.8-9.0 L EOSINOPHIL % (test code = EO%) 0.0 % 0.3-3.7 L BASOPHIL % (test code = BA%) 0.1 % 0.0-2.0 N NUCLEATED RBC % (test code = 0.0 % 0-0 N NRBC%) NEUTROPHIL # (test code = NT#) 8.12 x10 3/uL 2.0-7.6 H IMMATURE GRANULOCYTE # (test 0.03 x10 3/uL 0.00-0.03 N code = IG#) LYMPHOCYTE # (test code = LY#) 1.00 x10 3/uL 1.0-3.8 N MONOCYTE # (test code = MO#) 0.24 x10 3/uL 0.1-0.8 N EOSINOPHIL # (test code = EO#) 0.00 x10 3/uL 0.0-0.2 N BASOPHIL # (test code = BA#) 0.01 x10 3/uL 0.0-0.2 N NUCLEATED RBC # (test code = 0.00 x10 3/uL 0.0-0.1 N NRBC#) MANUAL DIFF REQUIRED (test code NO = MDIFF) CBC W/AUTO [id number] 07:07:00 Test Item Value Reference Range Interpretation Comments WHITE BLOOD CELL (test code = x10 3/uL 4.5-11.0 WBC) RED BLOOD CELL (test code = RBC) x10 6/uL 4.00-5.60 HEMOGLOBIN (test code = HGB) g/dL 12.5-16.9 HEMATOCRIT (test code = HCT) % 37.5-50.7 MEAN CELL VOLUME (test code = fL 81.0-99.0 MCV) MEAN CELL HGB (test code = MCH) pg 27.0-33.0 MEAN CELL HGB CONCETRATION (test g/dL 33.0-37.0 code = MCHC) RED CELL DISTRIBUTION WIDTH CV % 11.5-14.5 (test code = RDW) PLATELET COUNT (test code = PLT) 304 x10 3/uL 150-400 N NEUTROPHIL % (test code = NT%) % 56.0-77.0 LYMPHOCYTE % (test code = LY%) % 14.0-32.0 NEUTROPHIL # (test code = NT#) x10 3/uL 2.0-7.6 LYMPHOCYTE # (test code = LY#) x10 3/uL 1.0-3.8 MANUAL DIFF REQUIRED (test code = MDIFF) [id number] 15:40:00 Test Item Value Reference Range Interpretation Comments ACT-ISTAT (test code 241 SEC 74-137 H Perform ed by certified = ACTI) 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 [facility] [id number] 15:40:00 Test Item Value Reference Range Interpretation Comments ACT-ISTAT (test code 246 SEC 74-137 H Perform ed by certified = ACTI) 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 Positiv e results do not rule out bacterial infection or co -infection with other viru ses. Negative result s do not preclude SARS-C oV-2 infection andsh ould not be used as the dakotah e basis for patient managementdecis ions. Negative result s must be combined with otherclinical observations, p atient history, and epidemiological information . Detection of SARS-CoV-2 RNA may be affe cted bysample collec tion methods, storag e conditions, and /or stageof infection. Keren l RNA mutations, vacc inations, antiviraltherap eutics, antibiotics, chemotherapeuti c orimmunosuppres jorge a drugs have not been e valuated for effectson d etection. Results are for the identification of SARS-CoV-2 RNA usingthe [employer] Sy stem under the FDA Emergen cy UseAuthorizatio n. The testing is perf ormed by personneltraine d in the procedures for the [employer] molecular diagnostic SARS-CoV-2 assa y in vitro. CBC W/AUTO [id number] 13:20:00 Test Item Value Reference Range Interpretation Comments WHITE BLOOD CELL (test code = 8.4 x10 3/uL 4.5-11.0 N WBC) RED BLOOD CELL (test code = 3.95 x10 6/uL 4.00-5.60 L RBC) HEMOGLOBIN (test code = HGB) 11.8 g/dL 12.5-16.9 L HEMATOCRIT (test code = HCT) 36.6 % 37.5-50.7 L MEAN CELL VOLUME (test code = 92.7 fL 81.0-99.0 N MCV) MEAN CELL HGB (test code = MCH) 29.9 pg 27.0-33.0 N MEAN CELL HGB CONCETRATION 32.2 g/dL 33.0-37.0 L (test code = MCHC) RED CELL DISTRIBUTION WIDTH CV 13.1 % 11.5-14.5 N (test code = RDW) RED CELL DISTRIBUTION WIDTH SD 44.2 fL 37.0-54.0 N (test code = RDW-SD) PLATELET COUNT (test code = 305 x10 3/uL 150-400 N PLT) MEAN PLATELET VOLUME (test code 9.6 fL 7.0-9.0 H = MPV) NEUTROPHIL % (test code = NT%) 63.5 % 56.0-77.0 N IMMATURE GRANULOCYTE % (test 0.4 % 0.0-2.0 N code = IG%) LYMPHOCYTE % (test code = LY%) 27.8 % 14.0-32.0 N MONOCYTE % (test code = MO%) 5.5 % 4.8-9.0 N EOSINOPHIL % (test code = EO%) 2.3 % 0.3-3.7 N BASOPHIL % (test code = BA%) 0.5 % 0.0-2.0 N NUCLEATED RBC % (test code = 0.0 % 0-0 N NRBC%) NEUTROPHIL # (test code = NT#) 5.36 x10 3/uL 2.0-7.6 N IMMATURE GRANULOCYTE # (test 0.03 x10 3/uL 0.00-0.03 N code = IG#) LYMPHOCYTE # (test code = LY#) 2.34 x10 3/uL 1.0-3.8 N MONOCYTE # (test code = MO#) 0.46 x10 3/uL 0.1-0.8 N EOSINOPHIL # (test code = EO#) 0.19 x10 3/uL 0.0-0.2 N BASOPHIL # (test code = BA#) 0.04 x10 3/uL 0.0-0.2 N NUCLEATED RBC # (test code = 0.00 x10 3/uL 0.0-0.1 N NRBC#) MANUAL DIFF REQUIRED (test code NO = MDIFF) - XR CHEST 2 [id number] 13:12:00 [facility] : 1935 Sex: M FAX: Rikki Ewing MD [phone] [place]: St: PRE Name: RETA RAMOS [facility] : 1935 Age/S: 84/M [address] [place] [address] Blvd Unit #: [id number] Loc: [place] [address] Phys: Rikki Goel MD Acct: [id number] Dis Date: Status: PRE SDC PHONE #: [phone] Exam Date: 03/16/2020 1259 FAX #: [phone] Reason: PRE PROCEDURE/AFIB EXAMS: CPT CODE: [id number] XR CHEST 2 V 80444 EXAM: PA and lateral chest. EXAMDATE: March 16, 2020 CLINICAL HISTORY: PRE PROCEDURE/AFIB COMPARISON: None Dual-lead pacemaker is present.Are size is within normal limits. Atherosclerotic calcifications and tortuosity of the intrathoracic aorta is identified. The lungs appear free of acute disease. Mild pectus excavatum is noted. Healed rib fracture of the [id number] posterior rib is noted. IMPRESSION: No evidence of acute cardiopulmonary disease. at 1312 Reported and signed by: Sara Brown M.D. CC: Rikki Goel MD Technologist: RT Carmen(R) Trnscrd Date/Time/By: 03/16/2020 (1312) : By: Mello Orig Print D/T: S: 03/16/2020 (1461) PAGE 1 Signed ReportBASIC METABOLIC [id number] 12:51:00 Test Item Value Reference Range Interpretation Comments SODIUM (test code = NA) 141 mEq/L 134-147 N POTASSIUM (test code = 3.8 mEq/L 3.4-5.0 N K) CHLORIDE (test code = 107 mEq/L 100-108 N CL) CARBON DIOXIDE (test 29 mEq/l 21-33 N code = CO2) ANION GAP (test code = 9 0-20 N GAP) GLUCOSE (test code = 121 mg/dL 70-110 H GLU) BLOOD UREA NITROGEN 19 mg/dL 7-18 H (test code = BUN) GLOMERULAR FILTRATION 57.7 70-80 L Units of measure = RATE (test code = GFR) ml/mi n/1.73 m2 CREATININE (test code = 1.2 mg/dL 0.6-1.3 N CREAT) CALCIUM (test code = 9.4 mg/dL 8.0-10.5 N CA) [id number] 12:51:00 Test Item Value Reference Range Interpretation Comments PREALBUMIN (test code = PREALB) 18.2 mg/dL 16.0-40.0 N PROTHROMBIN [id number] 12:42:00 Test Item Value Reference Range Interpretation Comments PROTHROMBIN TIME 18.8 SECONDS 9.3-12.9 H PATIENT (test code = PTP) INTERNATIONAL NORMAL 1.7 0.8-1.2 H TARGET RATIO (test code = INR BY IN DICATION INR) Indication INR1. Prophyl axis of venous thrombos is 2.0 - 3. 0 (orthopedic tanner giles), Prophylaxis of venous thrombos is (other than hig h-risk surgery), Erica tment of Deep Vein Thrombosis/Pulm onary Embolism, Preve ntion of systemic emb olism - Tissue heart va lves, Acute Myocardia l Infarction (to prevent systemic embo lism), Valvular heart disease, Atri al Fibrillation, Bileaflet mecha nical valve in aortic position.2. Mec hanical prosthetic valv es (high risk), 2.5 - 3.5 Presence of Lupus Anticoagu lant or Antiphospholi pid Antibodies, Pre vention of systemic e mbolism - Acute Myocard ial Infarction (t o prevent recurre nt infarct). - CT HEART W CN STR MOR [id number] 13:43:00 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 [address] angiogram with IV contrast (Pulmonary Vein Mapping) 02/24/2020. MEDICAL HISTORY: Atrial fibrillation. Comparison studies: None. Administered contrast: 100 mL of Isovue 300 intravenously. FINDINGS: Contiguous 2 mm axial images of the chest were obtained with IV contrast using the CT angiogram protocol with a 64- slice multidetector scanner. Images were obtained from the thoracic inlet through below the level of the adrenal glands. Particular attention was given to the left atrium and pulmonary veins. The acquired data was used to create multiplanar reformats and volume rendering reconstructions with the use of the work station. CT imaging performed at this location utilizes radiation dose optimization techniques which include one or more of the following: -Automated exposure control -Adjustment of the mA and/or kV according to patient size -Use of iterative reconstruction technique CT Radiation Dose DLP 1510.10 mGy-cm Pulmonary vein measurements (measure plane obtained 5 mm distal to vessel ostia): Right superior pulmonaryvein (RSPV): 23 mm. Right inferior pulmonary vein (RIPV): 19 mm. Left superior pulmonaryvein (LSPV): 18 mm. Left inferior pulmonary vein (LIPV): 23 mm. Visualized lungs are clear. There are mild degenerative changes throughout the visualized thoracic spine. No acute or aggressive bony abnormality is present. Multiple hepatic hypodense structures likely represent cysts. Pacemaker is noted.. IMPRESSION: 1. Pulmonary vein measurements as above. 2. Pacemaker. 3. Probable hepatic cysts. Please note that vessels bifurcating at a distance equal to or greater than 5 mm from the expectedouter margin of the left atrium are considered to have a common ostium. 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 [address] <Continued> at 1343 Reported and signed by: Jose Thornton M.D. CC: Rikki Goel MD Technologist:RT Zander(R) CTDI: DLP: Trnscb Date/Time: 02/24/2020 (1343) [id number] Orig Print D/T: S: 02/24/2020 (1346) PAGE 2 Signed Report
[2021-03-09] MEDS ORDERED: LIDOCAINE 1% MPF 5 ML VIAL ONE ×2 (22:06→22:10)
--- NOTE | 2021-03-09 22:22 | EDPHYS ---
Physician Documentation [facility] Name: Tony Orellana Age: 85 yrs Sex: Male : 1935 Arrival Date: 03/09/2021 Time: 21:47 Bed 10 Private MD: ED Physician Ammon Kuo HPI: 03/09 22:19 This 85 yrs old Male presents to ER via Ambulatory with complaints of Puncture Wound To kb Hand. 22:19 The patient or guardian reports a laceration, clean. The complaints affect the heel of kb left hand. Context: resulted from accidentally stabbed hand with scissors while trying to open a case of water. Onset: The symptoms/episode began/occurred just prior to arrival. Modifying factors: The symptoms are alleviated by nothing, the symptoms are aggravated by nothing. Associated signs and symptoms: The patient has no apparent associated signs or symptoms. Severity of symptoms: At their worst the symptoms were mild, in the emergency department the symptoms are unchanged. The patient has not experienced similar symptoms in the past. The patient has not recently seen a physician. Historical: - Allergies: 22:33 Tape; sm5 - Home Meds: 22:33 amlodipine 5 mg tab 1 tab once daily [Active]; aspirin 81 mg Oral chew 1 tab once daily sm5 [Active]; atorvastatin 40 mg Oral tab 1 tab once daily [Active]; cosamin joint health [Active]; finasteride 5 mg Oral tab 1 tab once daily [Active]; gabapentin 100 mg Oral cap [Active]; hydrochlorothiazide 12.5 mg Oral tab 1 tab once daily [Active]; losartan 100 mg Oral tab 1 tab once daily [Active]; mitochondrial energy boost [Active]; - PMHx: 22:33 Atrial Fib; High Cholesterol; Hypertension; Pacemaker; sm5 - Immunization history:: Client reports receiving the 2nd dose of the Covid vaccine. - Social history:: Smoking status: unknown. ROS: 22:19 Constitutional: Negative for fever, chills, and weight loss. kb 22:19 Skin: Positive for laceration(s). 22:19 All other systems are negative. Exam: 22:19 Constitutional: This is a well developed, well nourished patient who is awake, alert, kb and in no acute distress. Head/Face: Normocephalic, atraumatic. ENT: Moist Mucous membranes Respiratory: Respirations even and unlabored. No increased work of breathing. Talking in full sentences MS/ Extremity: Pulses equal, no cyanosis. Neurovascular intact. Full, normal range of motion. Neuro: Awake and alert, GCS 15, oriented to person, place, time, and situation. Moves all extremities. Normal gait. Psych: Awake, alert, with orientation to person, place and time. Behavior, mood, and affect are within normal limits. 22:19 Skin: injury, laceration(s), the wound is approximately 2.5 cm(s), of the heel of left hand, that can be described as clean, no foreign body, linear, without bleeding. Laceration: 22:18 Wound Repair of 2.5cm ( 1.0in ) subcutaneous laceration to heel of left hand. Linear kb shaped.. Distal neuro/vascular/tendon intact. Anesthesia: Wound infiltrated with 2 mls of 1% lidocaine. Wound prep: Extensive cleansing with hibiclenz by me, Wound irrigation with saline by me. Skin closed with 3 4-0 Prolene using simple sutures and sterile technique. Patient tolerated well. MDM: 22:00 Patient medically screened. kb 22:19 Data reviewed: vital signs, nurses notes. Data interpreted: Pulse oximetry: on room air kb is 100 %. Interpretation: normal. Counseling: I had a detailed discussion with the patient and/or guardian regarding: the historical points, exam findings, and any diagnostic results supporting the discharge/admit diagnosis, the need for outpatient follow up, a family practitioner, to return to the emergency department if symptoms worsen or persist or if there are any questions or concerns that arise at home. 03/09 22:01 Order name: Dressing - Wound; Complete Time: 22:32 kb 03/09 22: Order name: Gloves, Sterile; Complete Time: 22:32 kb 03/09 22: Order name: Prolene, Sutures; Complete Time: 22:32 kb 03/09 22: Order name: Setup Suture Tray; Complete Time: 22:32 kb Administered Medications: 22:05 Drug: Lidocaine (1 %) 1 vials {Note: administered by Ivelisse Leavitt NP.} Volume: 5 sm5 ml; Route: Infiltration; 22:36 Follow up: Response: No adverse reaction bb 22:27 Drug: Tetanus-Diphtheria Toxoid Adult 0.5 ml {[employer]: [employer]. Exp: bb 07/09/2022. Lot #: [id number]. } Route: IM; Site: right deltoid; 22:36 Follow up: Response: No adverse reaction bb Disposition: 03/10 00:07 Co-signature as Attending Physician, Ammon Kuo MD I agree with the assessment and rn plan of care. 00:07 Attestation: The patient's history, exam findings, diagnostics, and a summary of any rn interventions or procedures was reviewed in detail with Ivelisse URBINA. Disposition Summary: 03/09/21 22:21 Discharge Ordered Location: Home kb Condition: Stable kb Diagnosis - Laceration without foreign body of left hand kb Followup: kb - With: Emergency Department - When: As needed - Reason: Worsening of condition Followup: kb - With: Private Physician - When: 2 - 3 days - Reason: Recheck today's complaints, Continuance of care, Re-evaluation by your physician Discharge Instructions: - Discharge Summary Sheet kb - Laceration Care, Adult, [id number] kb Forms: - Medication Reconciliation Form kb - Thank You Letter kb - Antibiotic Education kb - Prescription Opioid Use kb Signatures: Ivelisse Leavitt FNP-C FNP-Kavya Darby RN Ammon Sahni MD MD rn Mazur, Sarah, RN RN sm5
--- NOTE | 2021-03-09 22:22 | ER ---
Nurse's Notes [facility] Name: Tony Orellana Age: 85 yrs Sex: Male : 1935 Arrival Date: 03/09/2021 Time: 21:47 Bed 10 Private MD: Diagnosis: Laceration without foreign body of left hand Presentation: 03/09 21:57 Chief complaint: Patient states: he was trying to open a case of water with a knife and sm5 stabbed his L hand. unknown last tetanus shot. takes baby aspirin. Care prior to arrival: None. Mechanism of Injury: Laceration sustained while opening a case of water with knife. Trauma event details: Injury occurred: at home. Injury occurred: March 09, 2021. 21:57 Acuity: JASON 4 5 21:57 Method Of Arrival: Ambulatory [facility] Trauma Activation: Physician: ED Physician; Name: Ivelisse Leavitt NP; Notified At: 22:00; Arrived At: 22:00 Physician: General Surgeon; Name: ; Notified At: 22:00; Arrived At: Physician: Radiology; Name: ; Notified At: 22:00; Arrived At: Physician: Respiratory; Name: ; Notified At: 22:00; Arrived At: Physician: Lab; Name: ; Notified At: 22:00; Arrived At: Historical: - Allergies: 22:33 Tape; 5 - Home Meds: 22:33 amlodipine 5 mg tab 1 tab once daily [Active]; aspirin 81 mg Oral chew 1 tab once daily 5 [Active]; atorvastatin 40 mg Oral tab 1 tab once daily [Active]; cosamin joint health [Active]; finasteride 5 mg Oral tab 1 tab once daily [Active]; gabapentin 100 mg Oral cap [Active]; hydrochlorothiazide 12.5 mg Oral tab 1 tab once daily [Active]; losartan 100 mg Oral tab 1 tab once daily [Active]; mitochondrial energy boost [Active]; - PMHx: 22:33 Atrial Fib; High Cholesterol; Hypertension; Pacemaker; sm5 - Immunization history:: Client reports receiving the 2nd dose of the Covid vaccine. - Social history:: Smoking status: unknown. Screenin:36 Abuse screen: Denies threats or abuse. Denies injuries from another. Tuberculosis sm5 screening: No symptoms or risk factors identified. 22:38 Nutritional screening: No deficits noted. Fall Risk None identified. bb Primary Survey: 22:35 NO uncontrolled hemorrhage observed. A: Airway: patent. Breathing/Chest: Respiratory sm5 pattern: regular, Respiratory effort: spontaneous. Circulation: Pulses: palpable right radial artery, bilateral radial, brachial, femoral, popliteal, posterior tibial and and dorsalis pedis arteries.. Disability Alert. Exposure/Environment: There is no evidence of uncontrolled external bleeding. Obvious injury(ies) are noted at this time: laceration to L hand. Reassessment Airway Airway Patent Breathing/Chest Respiratory pattern Regular Circulation Pulses Palpable Disability Alert. Assessment: 22:35 General: Appears in no apparent distress. Behavior is cooperative. Pain: Complains of sm5 pain in left hand. Injury Description: Laceration sustained to left hand moderate bleeding noted at this time. A dressing was applied. 22:36 Reassessment: Patient is alert, oriented x 3, equal unlabored respirations, skin bb warm/dry/pink. pt seen by this RN at discharge wound dressed with triple antibiotic ointment, non-adherant pad, kerlex and luda wrap. Suture line intact. Pt verbalized understanding of and agrees to plan of care discharge instructions given pt ambulated with steady gait to exit. ED Course: 21:47 Patient arrived in ED. kc5 21:53 Ivelisse Leavitt FNP-C [facility]. kb 21:53 Ammon Kuo MD is Attending Physician. kb 22:00 Triage completed. 5 22:01 Lidia Yang, EMILIE is Primary Nurse. 5 22:38 Patient has correct armband on for positive identification. bb 22:38 No provider procedures requiring assistance completed. Patient did not have IV access bb during this emergency room visit. Administered Medications: 22:05 Drug: Lidocaine (1 %) 1 vials {Note: administered by Ivelisse Leavitt NP.} Volume: 5 sm5 ml; Route: Infiltration; 22:36 Follow up: Response: No adverse reaction bb 22:27 Drug: Tetanus-Diphtheria Toxoid Adult 0.5 ml {[employer] Material: [employer]. Exp: bb 07/09/2022. Lot #: [id number]. } Route: IM; Site: right deltoid; 22:36 Follow up: Response: No adverse reaction barbara Outcome: 22:21 Discharge ordered by MD. doran 22:38 Discharged to home ambulatory. bb 22:38 Condition: stable 22:38 Discharge instructions given to patient, Instructed on discharge instructions, follow up and referral plans. wound care, Demonstrated understanding of instructions, follow-up care, wound care. 22:39 Patient left the ED. bb Signatures: Ivelisse Leavitt, CUSTOMS COLLECTOR-C CUSTOMS COLLECTOR-Kavya Darby, RN RN bb Latasha May kc5 Lidia Yang RN RN sm5
[2021-03-09] MEDS ORDERED: TETANUS & DIPHTHERIA TOX,ADULT 0.5 ML VIAL ONE (22:25)
== END 2021-03-09 22:39 | disposition home or self-care (01) ==
LOC: ER 21:45
PROC: 0JQK0ZZ Repair Left Hand Subcutaneous Tissue and Fascia, Open Approach (ICD-10-PCS; principal; 2021-03-09)
DX: S61.412A Laceration without foreign body of left hand, initial encounter (principal); W27.2XXA Contact with scissors, initial encounter; Z23 Encounter for immunization; Z79.82 Long term (current) use of aspirin; Z95.0 Presence of cardiac pacemaker; I10 Essential (primary) hypertension; I48.91 Unspecified atrial fibrillation; Z91.048 Other nonmedicinal substance allergy status
CPT/HCPCS: 90471; 90714; 99283

== ENCOUNTER 2022-08-04 10:27 | Inpatient (IN) | payer OTHER ==
--- OUTSIDE RECORDS SUMMARY | 2022-08-04 10:31 | XMS REPORT | Continuity of Care Document ---
:1935 Author Organization [facility] t Address [address] [place] [address] [address] [place] [address] Care Team Providers Name Role Phone BHARGAV MADRID Attending Clinician Unavailable Bhargav Madrid MD Attending Clinician Only, Paula Test Attending Clinician Unavailable Luis Armando Torres MD Attending Clinician LUIS ARMANDO TORRES Attending Clinician Unavailable Pob, [facility] Attending Clinician Unavailable Doctor Unassigned, [place] Attending Clinician Unavailable Rikki Goel Attending Clinician Unavailable BHARGAV MADRID Admitting Clinician Unavailable Bhargav Madrid MD Admitting Clinician Physician, No Primary or Family Admitting Clinician Unavaila ble Payers Payer Name Policy Type Policy Number Effective Date Expiration Date S pas[place] MEDICARE PART A [id number] 2000 \T\ B 00:00:00 [employer] [id number] 2013 00:00:00 Problems Condition Condition Condition Status Onset Resolution Last Treating Co mments Source Name Details Category Date Date Treatment Clinician Date No known No known Disease Unive rs active active ity of problems problems [facility] Allergies, Adverse Reactions, Alerts Allergy Allergy Status Severity Reaction(s) Onset Inactive Treating Comm ents Source Name Type Date Date Clinician ADHESIVE DRUG Active High Other-Cmnt Univ ers TAPE-JOSEPH 4-20 ity of ICONES 00:00: [address] Adhesive Propensi Active Other - See Burn - U nivers Tape-Joseph ty to comments 4-20 like ity of icones adverse 00:00: second [place] reaction 00 degree Medical [facility] TAPE DA Active U [facility] 1-26 Clear 00:00: [place] [facility] adhesive DA Active U [facility] tape 1- Clear 00:00: [place] [facility] adhesive DA Active U [facility] tape - Clear 00:00: [place] 00 [facility] No Known DA Active U [facility] Allergie 1-05 Clear s 00:00: [place] 00 [facility] No Known DA Active U [facility] Allergie 1-05 Clear s 00:00: [place] 00 [facility] NO KNOWN Drug Active Univers ALLERGIE Class ity of [facility] Social History Social Habit Start Date Stop Date Quantity Comments Source Exposure to Not sure [facility] SARS-CoV-2 [facility] (event) [place] History of Smoker University of tobacco use [facility] Tobacco use and 2020-06-22 2020-06-22 Never used Universit y of exposure 00:00:00 00:00:00 [facility] Alcohol intake 2020-06-22 2020-06-22 Current drinker Unive rsity of 00:00:00 00:00:00 of alcohol [facility] (finding) [place] Alcohol Comment 2020-06-09 2020-06-09 seldom Universit y of 00:00:00 00:00:00 [facility] Sex Assigned At [birth year] Universit y of 00:00:00 00:00:00 [facility] Smoking Status Start Date Stop Date Source Unknown if [facility] Former smoker 2020-06-22 00:00:00 2020-06-22 00:00:00 Universi ty [facility] Medications Ordered Filled Start Stop Current Ordering Indication Dosage Frequency Signature Comments Components Source Medication Medication Date Date Medication? Clinician (SIG) Name Name finasteride Yes 5mg Take 5 mg U nivers 5 mg tablet 5-05 by mouth ity of 16:34: daily. [address] losartan Yes 100mg Take 100 Univ ers 100 mg 5-05 mg by ity of tablet 16:34: mouth [place] 21 daily. Medical Branch atorvastati 0 Yes 40mg Take 40 mg Univers n 40 mg 5-05 by mouth ity of tablet 16:34: at [place] 21 bedtime. Medical Branch gabapentin 0 Yes 100mg Take 100 Un danny 100 mg 5-05 mg by ity of capsule 16:34: mouth [place] 21 daily. Medical Branch clopidogreL 0 Yes 75mg Take 75 mg Univers 75 mg 5-05 by mouth ity of tablet 16:34: daily. Medical Branch amLODIPine 0 Yes 5mg Take 5 mg Un danny 5 mg tablet 5-05 by mouth ity of 16:34: daily. Medical Branch hydroCHLORO Yes 12.5mg Take 12.5 Univers thiazide 5-05 mg by ity of 12.5 mg 16:34: mouth [place] capsule 21 daily. Medical Branch aspirin 0 Yes 81mg Take 81 mg Univ ers (TESSA LOW 5-05 by mouth. ity of STRENGTH 16:34: [place] ORAL) 21 Medical Branch finasteride 0 Yes 5mg Take 5 mg U nivers 5 mg tablet 5-05 by mouth ity of 16:34: daily. Medical Branch losartan 0 Yes 100mg Take 100 Univ ers 100 mg 5-05 mg by ity of tablet 16:34: mouth [place] 21 daily. Medical Branch atorvastati Yes 40mg Take 40 mg Univers n 40 mg 5-05 by mouth ity of tablet 16:34: at [place] 21 bedtime. Medical Branch gabapentin 0 Yes 100mg Take 100 Un danny 100 mg 5-05 mg by ity of capsule 16:34: mouth [place] 21 daily. Medical Branch clopidogreL 0 Yes 75mg Take 75 mg Univers 75 mg 5-05 by mouth ity of tablet 16:34: daily. Medical Branch amLODIPine 0 Yes 5mg Take 5 mg Un danny 5 mg tablet 5-05 by mouth ity of 16:34: daily. Medical Branch hydroCHLORO 0 Yes 12.5mg Take 12.5 Univers thiazide 5-05 mg by ity of 12.5 mg 16:34: mouth [place] capsule 21 daily. Medical Branch aspirin Yes 81mg Take 81 mg Univ ers (TESSA LOW 5-05 by mouth. ity of STRENGTH 16:34: [place] ORAL) Medical Branch sodium Yes PRN, Univers chloride 5-05 Starting ity of (NS) 15:55: 06/23/20 [place] injection 00 at 1055, Medica l Until Branch Discontinu ed, Routine, Intra-op sodium 2020- No PRN, Univers chloride 5-05 05-05 Starting ity of (NS) 15:55: 18:39 Sun06/23/20 [place] injection 00 :26 at 1055, Medica l Until Sun Branch 06/23/20 at 1339, Routine, Intra-op water for Yes PRN, Univers irrigation 5-05 Starting ity o f irrigation 15:54: Sun06/23/20 [place] solution 00 at 1054, Medical Until Branch Discontinu ed, Routine, Intra-op neomycin-po Yes PRN, Univer s lymyxin-dex 5-05 Starting ity of amethasone 15:54: Sun06/23/20 [place] (MAXITROL) 00 at 1054, Medic al 3.5 Until Branch mg/g-10,000 Discontinu unit/g-0.1 ed, % Routine, ophthalmic Intra-op ointment EPINEPHrine Yes PRN, Univer s 1:1,000 (1 5-05 Starting ity o f mg/mL) 15:54: Sun06/23/20 [place] (ADRENALIN) 00 at 1054, Medi darrin injection Until Branch Discontinu ed, Routine, Intra-op DUOVISC Yes PRN, Univers (DUOVISC 5-05 Starting ity of VISCO 15:54: Sun06/23/20 [place] ELASTIC) 3 00 at 1054, Medic al %-4 %(0.5 Until Branch mL) 1 % Discontinu (0.55 mL) ed, intraocular Routine, injection Intra-op water for 2020- No PRN, Univers irrigation 5-05 05-05 Starting ity of irrigation 15:54: 18:39 Sun06/23/20 [place] solution 00 :26 at 1054, Medical Until Sun Branch 06/23/20 at 1339, Routine, Intra-op neomycin-po [...] at 1054, Medic al %-4 %(0.5 Until Sun Branc h mL) 1 % 06/23/20 at (0.55 mL) 1339, intraocular Routine, injection Intra-op dexamethaso Yes PRN, Univer s ne 06-23 Starting ity of (DECADRON 15:53: 06/23/20 [place] PHOSPHATE) 00 at 1053, Medic al injection Until Branch Discontinu ed, Routine, Intra-op ceFAZolin Yes PRN, Univers (ANCEF) 06-23 Starting ity of injection 15:53: 06/23/20 [place] [...] :26 at 1053, Medic al ophthalmic Until Sun Bran ch solution 06/23/20 at 500 mL bag 1339, Routine, Intra-op Hyaluronida Yes PRN, Univer s se, Human 06-23 Starting ity of Recomb. 15:35: 06/23/20 [place] (HYLENEX) 00 at 1035, Medica l injection Until Branch Discontinu ed, Routine, Intra-op eye block Yes PRN, Univers syringe 11 05 Starting ity o f mL 15:35: 06/23/20 [place] 00 at 1035, Medical Until Branch Discontinu ed, Intra-op Hyaluronida 2020- No PRN, Unive rs se, Human 06-23 05 Starting ity o f Recomb. 15:35: 18:39 Sun06/23/20 [place] (HYLENEX) 00 :26 at 1035, Medica l injection Until Wed Branc h 06/23/20 at 1339, Routine, Intra-op eye block 2020- No PRN, Univers syringe 11 5-05 05-05 Starting ity of mL 15:35: 18:39 06/23/20 [place] 00 :26 at 1035, Medical Until Wed Branch 06/23/20 at 1339, Intra-op tetracaine 2020- Yes PRN, Univers (PONTOCAINE 5-05 Starting ity of ) 0.5 % 15:26: 06/23/20 [place] ophthal[place] 00 at 1026, Medic al drops Until Branch Discontinu ed, Routine, Intra-op tetracaine 2020- No PRN, Univer s (PONTOCAINE 5-05 05-05 Starting ity of ) 0.5 % 15:26: 18:39 06/23/20 [place] ophthalmic 00 :26 at 1026, Medic al drops Until Wed Branch 06/23/20 at 1339, Routine, Intra-op mydriatic [...] IV Medical Infusion, Branch ONCE, 1 dose, Sun06/23/20 at 0900, Routine, DSU Pre-op finasteride 2020-0 Yes 5mg Take 5 mg U nivers 5 mg tablet 4-21 by mouth ity of 17:43: daily. [place] [address] Medical Branch losartan 0 Yes 100mg Take [...] by mouth ity of tablet 17:43: daily. [place] [address] Medical Branch amLODIPine 0 Yes 5mg Take 5 mg Un danny 5 mg tablet 4-21 by mouth ity of 17:43: daily. [place] [address] Medical Branch hydroCHLORO Yes 12.5mg Take 12.5 Univers thiazide 4-21 mg by ity of 12.5 mg 17:43: mouth [place] capsule 23 daily. Medical Branch aspirin 0 Yes 81mg Take 81 mg Univ ers (TESSA LOW 4-21 by mouth. ity of STRENGTH 17:43: [place] ORAL) 23 Medical Branch finasteride 0 Yes 5mg Take 5 mg U nivers 5 mg tablet 4-21 by mouth ity of 17:43: daily. [place] [address] Medical Branch losartan 0 Yes 100mg Take [...] by mouth ity of tablet 17:43: daily. [place] [address] Medical Branch amLODIPine Yes 5mg Take 5 mg Un danny 5 mg tablet 4-21 by mouth ity of 17:43: daily. [place] [address] Medical Branch hydroCHLORO Yes 12.5mg Take 12.5 Univers thiazide 4-21 mg by ity of 12.5 mg 17:43: mouth [place] capsule 23 daily. Medical Branch aspirin Yes 81mg Take 81 mg Univ ers (TESSA LOW 4-21 by mouth. ity of STRENGTH 17:43: [place] ORAL) Medical Branch finasteride Yes 5mg Take 5 mg U nivers 5 mg tablet 4-21 by mouth ity of 17:43: daily. [place] [address] Medical Branch losartan Yes 100mg Take 100 Univ ers 100 mg 4-21 mg by ity of tablet 17:43: mouth [place] 23 daily. Medical Branch atorvastati Yes 40mg Take 40 mg Univers n 40 mg 4-21 by mouth ity of tablet 17:43: at [place] 23 bedtime. Medical Branch gabapentin Yes 100mg Take 100 Un danny 100 mg 4-21 mg by ity of capsule 17:43: mouth [place] 23 daily. Medical Branch clopidogreL Yes 75mg Take 75 mg Univers 75 mg 4-21 by mouth ity of tablet 17:43: daily. [place] [address] Medical Branch amLODIPine Yes 5mg Take 5 mg Un danny 5 mg tablet 4-21 by mouth ity of 17:43: daily. [place] [address] Medical Branch hydroCHLORO Yes 12.5mg Take 12.5 Univers thiazide 4-21 mg by ity of 12.5 mg 17:43: mouth [place] capsule 23 daily. Medical Branch aspirin Yes 81mg Take 81 mg Univ ers (TESSA LOW 4-21 by mouth. ity of STRENGTH 17:43: [place] ORAL) Medical Branch tetracaine Yes PRN, Univers (PONTOCAINE 4-21 Starting ity of ) 0.5 % 16:37: Wed [place] ophthalmic 00 06/09/20 at Med ical drops 1137, Branch Until Discontinu ed, Routine, Intra-op tetracaine 2020-2020- No PRN, Univer s (PONTOCAINE 4-21 06-09 Starting ity of ) 0.5 % 16:37: 19:43 Wed [place] ophthalmic 00 :23 06/09/20 at [facility] ica drops 1137, Branch Until Sun06/09/20 at 1443, Routine, Intra-op water for 2020-0 Yes PRN, Univers irrigation 06-09 Starting ity o f irrigation 16:13: Wed [place] solution 00 06/09/20 at [facility] al 1113, Branch Until Discontinu ed, Routine, Intra-op sodium 2020-0 Yes PRN, Univers chloride 06-09 Starting ity of (NS) 16:13: Wed [place] injection 00 06/09/20 at [facility] 1113, Branch Until Discontinu ed, Routine, Intra-op neomycin-po Yes PRN, Univer s lymyxin-dex 06-09 Starting ity of amethasone 16:13: Sun [place] (MAXITROL) 00 06/09/20 at [facility] ica 3.[facility], Branch mg/g-10,000 Until unit/g-0.1 Discontinu % ed, ophthalmic Routine, ointment Intra-op Hyaluronida Yes PRN, Univer s se, Human 06-09 Starting ity of Recomb. 16:13: Sun [place] (HYLENEX) 00 06/09/20 at [facility] injection 1113, Branch Until Discontinu ed, Routine, Intra-op water for 2020- No PRN, Univers irrigation 06-09 Starting ity of irrigation 16:13: 19:43 Wed [place] solution 00 :23 06/09/20 at [facility] al 1113, Branch Until Sun06/09/20 at 1443, Routine, Intra-op sodium 2020-0 2020- No PRN, Univers chloride 06-09 Starting ity of (NS) 16:13: 19:43 Wed [place] injection 00 :23 06/09/20 at [facility] 1113, Branch Until Sun06/09/20 at 1443, Routine, Intra-op neomycin-po 2020-0 2020- No PRN, Unive rs lymyxin-dex 06-09 Starting ity of amethasone 16:13: 19:43 Wed [place] (MAXITROL) 00 :23 06/09/20 at [facility] ical 3.5 1113, Branch mg/g-10,000 Until Sun unit/g-0.1 06/09/20 at % 1443, ophthalmic Routine, ointment Intra-op Hyaluronida 2020- No PRN, Unive rs se, Human 06-09 Starting ity o f Recomb. 16:13: 19:43 Wed [place] (HYLENEX) 00 :23 06/09/20 at [facility] darrin injection 1113, Branch Until Sun06/09/20 at 1443, Routine, Intra-op eye block Yes PRN, Univers syringe 11 06-09 Starting ity o f mL 16:11: Sun [place] 00 06/09/20 at [facility] 1111, Branch Until Discontinu ed, Intra-op eye block 2020- No PRN, Univers syringe 11 06-09 Starting ity of mL 16:11: 19:43 [facility] [place] 00 :23 06/09/20 at [facility] 1111, Branch Until Sun06/09/20 at 1443, Intra-op EPINEPHrine Yes PRN, Univer s 1:1,000 (1 06-09 Starting ity o f mg/mL) 16:09: Sun (ADRENALIN) 00 06/09/20 at [place] d[place] injection 1109, Branch Until Discontinu ed, Routine, Intra-op DUOVISC Yes PRN, Univers (DUOVISC 06-09 Starting ity of VISCO 16:09: Sun [place] ELASTIC) 3 00 06/09/20 at [facility] ical %-4 %(0.5 1109, Branch mL) 1 % Until (0.55 mL) Discontinu intraocular ed, injection Routine, Intra-op dexamethaso Yes PRN, Univer s ne 06-09 Starting ity of (DECADRON 16:09: Sun [place] PHOSPHATE) 00 06/09/20 at [facility] ical injection 1109, Branch Until Discontinu ed, Routine, Intra-op ceFAZolin Yes PRN, Univers (ANCEF) 06-09 Starting ity of injection 16:09: Wed [place] 00 06/09/20 at [facility] 1109, Branch Until Discontinu ed, RUFUS, Intra-op EPINEPHrine 2020- No PRN, Unive rs 1:1,000 (1 06-09 Starting ity of mg/mL) 16:09: 19:43 [facility] [place] (ADRENALIN) 00 :23 06/09/20 at Vt dical injection 1109, Branch Until Sun06/09/20 at 1443, Routine, Intra-op DUOVISC 2020- No PRN, Univers (DUOVISC 06-09 Starting ity of VISCO 16:09: 19:43 [facility] [place] ELASTIC) 3 00 :23 06/09/20 at [facility] ical %-4 %(0.5 1109, Branch mL) 1 % Until Sun (0.55 mL) 06/09/20 at intraocular 1443, injection Routine, Intra-op dexamethaso 2020- No PRN, Unive rs ne 06-09 Starting ity of (DECADRON 16:09: 19:43 [facility] PHOSPHATE) 00 :23 06/09/20 at [facility] ical injection 1109, Branch Until Sun06/09/20 at 1443, Routine, Intra-op ceFAZolin 2020- No PRN, Univers (ANCEF) 06-09 Starting ity of injection 16:09: 19:43 [facility] [place] 00 :23 06/09/20 at Medical 1109, Branch Until Sun06/09/20 at 1443, RUFUS, Intra-op carbachoL Yes PRN, Univers (MIOSTAT) 06-09 Starting ity of 0.01 % 16:08: Wed [place] intraocular 00 06/09/20 at Vt dical injection 1108, Branch Until Discontinu ed, Routine, Intra-op carbachoL 2020- No PRN, Univers (MIOSTAT) 06-09 Starting ity o f 0.01 % 16:08: 19:43 Wed [place] intraocular 00 :23 06/09/20 at Vt dical injection 1108, Branch Until Sun06/09/20 at 1443, Routine, Intra-op balanced Yes PRN, Univers salt irrig 06-09 Starting ity o f soln comb1 16:07: Wed [place] (BSS PLUS) 00 06/09/20 at [facility] ical ophthalmic 1107, Branch solution Until 500 mL bag Discontinu ed, Routine, Intra-op balanced 2020- No PRN, Univers salt irrig 06-09 Starting ity of soln comb1 16:07: 19:43 Wed [place] (BSS PLUS) 00 :23 06/09/20 at [facility] ica ophthalmic 1107, Branch solution Until Wed 500 mL bag 06/09/20 at 1443, Routine, Intra-op mydriatic 2020- No .5mL 0.5 mL, Univ ers #5 06-09 Right Eye, ity of ophthalmic 14:45: 14:53 ONCE, 1 [place] solution 00 :00 dose, Wed Medica l 0.5 mL 06/09/20 at [place] syringe 0945, Routine, DSU Pre-op mydriatic 2020- No .5mL 0.5 mL, Univ ers #5 06-09 Right Eye, ity of ophthalmic 14:45: 14:53 ONCE, 1 [place] solution 00 :00 dose, Wed Medica l 0.5 mL 06/09/20 at [place] syringe 0945, Routine, DSU Pre-op Immunizations Ordered Filled Immunization Date Status Comments [facility] e Immunization Name Name SARS-COV-2 COVID-19 2020-05-08 Completed Unive rsity of PFIZER VACCINE 00:00:00 [facility] SARS-COV-2 COVID-19 2020-05-08 Completed Unive rsity of PFIZER VACCINE 00:00:00 [facility] SARS-COV-2 COVID-19 2020-05-08 Completed Unive rsity of PFIZER VACCINE 00:00:00 [facility] SARS-COV-2 COVID-19 2020-05-08 Completed Unive rsity of PFIZER VACCINE 00:00:00 [facility] SARS-COV-2 COVID-19 2020-05-08 Completed Unive rsity of PFIZER VACCINE 00:00:00 [facility] SARS-COV-2 COVID-19 2020-05-08 Completed Unive rsity of PFIZER VACCINE 00:00:00 [facility] SARS-COV-2 COVID-19 2020-05-08 Completed Unive rsity of PFIZER VACCINE 00:00:00 [facility] SARS-COV-2 COVID-19 2020-05-08 Completed Unive rsity of PFIZER VACCINE 00:00:00 [facility] SARS-COV-2 COVID-19 2020-04-17 Completed Unive rsity of PFIZER VACCINE 00:00:00 [facility] SARS-COV-2 COVID-19 2020-04-17 Completed Unive rsity of PFIZER VACCINE 00:00:00 [facility] SARS-COV-2 COVID-19 2020-04-17 Completed Unive rsity of PFIZER VACCINE 00:00:00 [facility] SARS-COV-2 COVID-19 2020-04-17 Completed Unive rsity of PFIZER VACCINE 00:00:00 [facility] SARS-COV-2 COVID-19 2020-04-17 Completed Unive rsity of PFIZER VACCINE 00:00:00 [facility] SARS-COV-2 COVID-19 2020-04-17 Completed Unive rsity of PFIZER VACCINE 00:00:00 [facility] SARS-COV-2 COVID-19 2020-04-17 Completed Unive rsity of PFIZER VACCINE 00:00:00 [facility] SARS-COV-2 COVID-19 2020-04-17 Completed Unive rsity of PFIZER VACCINE 00:00:00 [facility] Vital Signs Vital Name Observation Time Observation Value Comments Source Systolic blood 2020-06-23 16:17:00 140 mm[Hg] Univer sity of pressure [facility] Diastolic blood 2020-06-23 16:17:00 67 mm[Hg] Unive rsity of pressure [facility] Heart rate 2020-06-23 16:17:00 60 /min [facility] Oxygen saturation in 2020-06-23 16:17:00 97 /min [facility] Arterial blood by [facility] Pulse oximetry Branch Respiratory rate 2020-06-23 16:12:00 20 /min [facility] Body temperature 2020-06-23 16:06:00 36.67 Nicole [facility] Body height 2020-06-22 18:45:00 177.8 cm [facility] Body weight 2020-06-22 18:45:00 85.73 kg [facility] BMI 2020-06-22 18:45:00 27.12 kg/m2 [facility] Systolic blood 2020-06-23 13:44:00 147 mm[Hg] Univer sity of pressure [place] [facility] Diastolic blood 2020-06-23 13:44:00 70 mm[Hg] Unive rsity of pressure [place] [facility] Heart rate 2020-06-23 13:44:00 60 /min Universi ty [facility] [place] [facility] Body temperature 2020-06-23 13:44:00 36.5 Nicole Univ ersity of [place] [facility] Respiratory rate 2020-06-23 13:44:00 16 /min Univ ersity of [place] [facility] Oxygen saturation in 2020-06-23 13:44:00 99 /min University of Arterial blood by [place] [employer] darrin Pulse oximetry Branch Body height 2020-06-22 18:45:00 177.8 cm Universi ty of [place] [facility] Body weight 2020-06-22 18:45:00 85.73 kg Universi ty of [place] [facility] BMI 2020-06-22 18:45:00 27.12 kg/m2 [facility]i ty [facility] [place] [facility] Systolic blood 2020-06-09 17:29:00 140 mm[Hg] Univer sity of pressure [place] [facility] Diastolic blood 2020-06-09 17:29:00 75 mm[Hg] Unive rsity of pressure [place] [facility] Heart rate 2020-06-09 17:29:00 66 /min Universi ty [facility] [place] [facility] Respiratory rate 2020-06-09 17:29:00 16 /min Univ ersity of [place] [facility] Oxygen saturation in 2020-06-09 17:29:00 98 /min University of Arterial blood by [place] [employer] darrin Pulse oximetry Branch Body temperature 2020-06-09 17:17:00 36.5 Nicole Univ ersity of [place] [facility] Body height 2020-06-07 20:11:00 178 cm Universi ty of [place] [facility] Body weight 2020-06-07 20:11:00 82 kg Universi ty of [place] [facility] BMI 2020-06-07 20:11:00 25.88 kg/m2 [facility]i ty [facility] [place] [facility] Systolic blood 2020-06-09 14:46:00 141 mm[Hg] Univer sity of pressure [place] [facility] Diastolic blood 2020-06-09 14:46:00 59 mm[Hg] Unive rsity of pressure [facility] Heart rate 2020-06-09 14:46:00 68 /min [facility] Body temperature 2020-06-09 14:46:00 36.78 Nicole [facility] Res[facility] rate 2020-06-09 14:46:00 16 /min [facility] Oxygen saturation in 2020-06-09 14:46:00 99 /min [facility] Arterial blood by [facility] Pulse oximetry Branch Body height 2020-06-07 20:11:00 178 cm [facility] Body weight 2020-06-07 20:11:00 82 kg [facility] BMI 2020-06-07 20:11:00 25.88 kg/m2 [facility] Procedures Procedure Date / Time Performing Source Performed Clinician PHACOEMULSIFICATION OF 2020-06-23 Bhargav Madrid [facility] CATARACT WITH INTRAOCULAR 15:14:00 Medica l Branch LENS IMPLANT NOTICE OF PRIVACY PRACTICES 2020-06-22 Doctor Unassigned, [facility] 15:55:36 [place] [facility] NOTICE OF PRIVACY PRACTICES 2020-06-22 Doctor Unassigned, [facility] 15:55:36 [place] [facility] CONSENT/REFUSAL FOR DIAGNOSIS 2020-06-22 Doctor Unassigned, [facility] 15:53:50 [place] [facility] CONSENT/REFUSAL FOR DIAGNOSIS 2020-06-22 Doctor Unassigned, [facility] 15:53:50 [place] [facility] ASSIGNMENT OF BENEFITS 2020-06-22 Doctor Unassigned, [facility] 15:53:32 [place] [facility] ASSIGNMENT OF BENEFITS 2020-06-22 Doctor Unassigned, [facility] 15:53:32 [place] [facility] PHACOEMULSIFICATION OF 2020-06-09 Bhargav Madrid [facility] CATARACT WITH INTRAOCULAR 16:29:00 Medica l Branch LENS IMPLANT ASSIGNMENT OF BENEFITS 2020-06-04 Doctor Unassigned, [facility] 18:15:49 [place] [facility] [id number] 2020-03-18 RASSA [facility] 00:00:00 [facility] Encounters Start End Encounter Admission Attending Care Care Encounter Source Date/Time Date/Time Type Type Clinicians Facility Department ID 2020-12-19 [email or web address] JOHNATH[place] [id number] Univers 15:52:21 BHARGAV iterlin [facility] 2020-12-19 [email or web address] OPH [id number] Univers 13:26:42 BHARGAV iterlin [facility] 2020-06-23 2020-06-23 [facility] [id number] Univers 08:34:00 11:32:00 Encounter Bhargav Anand [id number] [place] [id number] [place] [id number] [place] [id number] [place] 2020-06-23 2020-06-23 [facility] [id number] Univers 10:11:00 10:52:00 Bhargav Anand [id number] [place] [id number] [place] [id number] [facility] 020 Branch 2020-06-22 2020-06-22 Laboratory Only, Adc Test [facility] [id number] Univers 10:52:02 11:07:02 Only Bhargav [place] [id number] 0 [place] [id number] [place] [id number] [address] 2020-06-22 2020-06-22 [address] [facility] [id number] Univers 10:45:00 10:45:00 BHARGAV erlin [facility] 2020-06-09 2020-06-09 [facility] [id number] Univers 09:33:00 12:43:00 Encounter Bhargav Anand [id number] [place] [id number] [place] [id number] [place] [id number] [place] 2020-06-09 2020-06-09 [facility] 1.2.840.114 [id number] Univers 11:23:00 12:03:00 Bhargav Anand 350.1.13.10 [place] [id number] [facility] 020 Branch 2020-06-08 2020-06-08 Laboratory Only, Adc Test [facility] 1.2.840. 114 [id number] Univers 10:14:03 10:29:03 Only Luis Armando Torres Kika 350.1.13.10 [place] [id number] [facility] 353 Branch 2020-06-08 2020-06-08 Outpatient [facility] [id number] Univers 10:15:00 10:15:00 LUIS ARMANDO garcia [facility] 2020-06-04 2020-06-04 Senior Service Aide Latesha, Adc Lab Main [facility] 1.2.8 40.114 [id number] Univers 13:27:34 13:42:34 Visit Bhargav [place] 350.1.13.1 0 [place] [phone] Vt dical formerly [facility], [facility] 353 [address] [facility] 2020-06-04 2020-06-04 Outpatient R NASRA [facility] [id number] Univers 11:45:00 11:45:00 BHARGAV garcia [facility] 2020-06-04 2020-06-04 Orders Doctor LENA 1.2.840.114 [id number] Univers 00:00:00 00:00:00 Only Unassigned, ADRIÁN 350.1.13.10 ity of [place] [facility] 4.2.7.2.686 Dipak as [id number] [facility] 009 Branch 2020-04-26 2020-04-28 Inpatient Raslan, HCACL OUTD [id number] [facility] 15:30:00 00:06:05 Rikki 31 [facility] 2020-04-16 2020-04-16 Outpatient Raslan, HCACL [facility] [id number] [facility] 14:25:26 14:25:26 Rikki 70 [facility] 2020-03-16 2020-03-24 Inpatient Raslan, HCACL [facility] [id number] [facility] 11:30:00 11:51:09 Rikki 02 [facility] 2019-10-08 2019-10-08 Outpatient [facility] PDPFEDD [facility] 00:00:00 00:00:00 [id number] Results Test Description Test Time Test Comments [...] = CA) 9.0 mg/dL 8.0-10.5 N PROTHROMBIN [id number] 11:59:00 Test Item Value Reference Range Interpretation Comments PROTHROMBIN TIME 20.9 SECONDS 9.3-12.9 H PATIENT (test code = PTP) INTERNATIONAL NORMAL 1.9 0.8-1.2 H TARGET INR BY RATIO (test code = INDICATIO N Indication INR) INR1. 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 Mec hanical prosthetic valv es (high risk), 2 .5 - 3.5 Presence of Lupus Anticoagulant o r Antiphospholipi d Antibodies, Pre vention of systemic emb olism - Acute Myocardia l Infarction (to prevent recurrent infar ct). CBC W/AUTO [id number] 11:54:00 Test Item Value Reference Range Interpretation [...] (test code NO = MDIFF) CBC W/AUTO [id number] 11:48:00 Test Item Value Reference Range Interpretation [...] code = MDIFF) COVID 19 Asymptomatic IH [id number] 11:26:00 Test Item Value Reference Range Interpretation [...] on theamount of vi joyce (antigen) in e sample.This damian t has not been FDA cleare d or approved; the t est hasbeen authori zed by FDA under an Em ergency Use Authorizati on(EUA) for use by labo ratories certified under the CLIA thatmeet the requirements to perform moderate, high or waivedcomplexit y tests. 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 The testing is perf ormed by personneltraine d in the procedures for the Cyphort M2000 molecular diagnostic SARS-CoV-2 assa y in vitro. CBC W/AUTO [id number] 13:20:00 Test Item Value Reference Range Interpretation [...] NO = MDIFF) - XR CHEST 2 [id number] 13:12:00 [facility] : 1935 Sex: M FAX: Rikki Ewing MD [phone] [place]: [address]: PRE Name: TONY ORELLANA [facility] : 1935 Age/S: 84/M [address] [place] [address] Blvd Unit #: [id number] Loc: [place] [address] Phys: AmandoEdyta Acct: [id number] Dis Date: Status: PRE SDC PHONE #: [phone] Exam Date: 03/16/2020 1259 FAX #: [phone] Reason: PRE PROCEDURE/AFIB EXAMS: CPT CODE: [id number] XR CHEST 2 V 45379 EXAM: PAand lateral chest. EXAM DATE: March 16, 2020 CLINICAL HISTORY: PRE PROCEDURE/AFIB COMPARISON: NoneDual-lead pacemaker is present.Are size is within normal limits. Atherosclerotic calcifications and tortuosity of the intrathoracic aorta is identified. The lungs appear free of acute disease. Mild pectus excavatum is noted. Healed rib fracture of the right 4th posterior rib is noted. IMPRESSION: No evidence of acute cardiopulmonary disease. Electronically Signed by Mani Brown on03/16/2020 at 1312 Reported and signed by: Sara Brown M.D. CC: Rikki Goel MD Technolog ist: Sobia Davis RT(R) Trnscrd Date/Time/By: 03/16/2020 (1312) : By: Mello Orig Print D/T: S: 03/16/2020 (0188) PAGE 1 Signed ReportBASIC METABOLIC [id number] 12:51:00 Test Item Value Reference Range Interpretation [...] code = 9.4 mg/dL 8.0-10.5 N CA) [id number] 12:51:00 Test Item Value Reference Range Interpretation Comments PREALBUMIN (test code = PREALB) 18.2 mg/dL 16.0-40.0 N PROTHROMBIN [id number] 12:42:00 Test Item Value Reference Range Interpretation Comments PROTHROMBIN TIME 18.8 SECONDS 9.3-12.9 H PATIENT (test code = PTP) INTERNATIONAL NORMAL 1.7 0.8-1.2 H TARGET INR BY RATIO (test code = INDICATIO N Indication INR) INR1. 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 Mec hanical prosthetic valv es (high risk), 2. 5 - 3.5 Presence of Lup us Anticoagulant o r Antiphospholipi d Antibodies, Pre vention of systemic emb olism - Acute Myocardia l Infarction (to prevent recurrent infar ct). - CT HEART W CN STR MOR [id number] 13:43:00 [facility] : 1935 Sex: M Name: TONY ORELLANA [facility] : 1935 Age/S: 84 / M [address] [place] [address] BlvdUnit #: [id number] Loc: [place] [address] Phys: Rikki Goel MD Acct: [id number] Dis Date: Status: REG CLI PHONE #: [phone] Exam Date: 02/24/2020 1048 FAX #: [phone] Reason: AFIB, WATCHMANEXAMS: CPT CODE: [id number] CT HEART W CN STR MOR [facility] [id number] angiogram with IV contrast (Pulmonary Vein Mapping) 02/24/2020. MEDICAL HISTORY: Atrial fibrillation. Comparison studies: None. Administered contrast: 100 mL of Isovue 300 intravenously. FINDINGS: Contiguous 2 mm axial images of the chest were obtained with IV contrast using the CT angiogram protocol with a 64-slice multidetector scanner. Images were obtained from the [...] mm distal to vessel ostia): Right superior pulmonary vein(RSPV): 23 mm. Right inferior pulmonary vein (RIPV): 19 mm. Left superior pulmonary vein (LSPV): 18 mm. Left inferior pulmonary vein [...] or greater than 5 mm from the expected outer margin of the left atrium are considered to have a common ostium. SL: [id number] PAGE 1 Signed Report (CONTINUED)Name: TONY ORELLANA [facility] : 1935 Age/S: 84 / M [address] [place] [address] Unit #: [id number] Loc: [place] [address] Phys: Rikki Goel MD Acct: [id number] Dis Date: Status: REG CLI PHONE #: [phone] Exam Date: 02/24/2020 1048 FAX #: [phone] Reason: AFIB, WATCHMAN EXAMS: CPT CODE: [id number] CT HEART W CN STR MOR [facility] [id number] (Continued) at 1343 Reported and signed by: Jose Thornton M.D. CC: Rikki Goel MD Technologist:Karlo Morgan, (R) CTDI: DLP: Trnscb Date/Time: 02/24/2020 (134) [id number] Orig Print D/T: S: 02/24/2020 (5535) PAGE 2 Signed Report Notes Date/Time Note Provider Source 2020-04-28 14:39:00-00:00 [id number] [place] [address] PATIENT NAME: TONY ORELLANA ADMIT DATE: 03/18/20 ACCOUNT NO: [id number] ROOM NO: G.3397 AGE: 84 REPORT TYPE: CARDIAC CATHETERIZATION REPORT SEX: M ADMITTING PHYSICIAN:Florencio Catherine DO ATTENDING PHYSICIAN:Florencio Catherine DO PROCEDURE DATE: 03/18/2020 PROCEDURES: Left atrial appendage closure using 27 mm Watchman 2.5 closure device. INDICATIONS: Atrial fibrillation with high CHADS -VASc score, high risk for stroke and intolerant of anticoagulation. ACCESS: Right femoral vein, 16-Gibraltarian closed wit h buigkq-ku-yocwf suture. COMPLICATIONS: None. BLEEDING: Less than 20 mL. DESCRIPTION OF PROCEDURE: After risks, benefits, and alternatives were explained, the patient agreed to procedure and s igned informed consent, the patient was brought into the cardiac catheteriza tion laboratory, prepped and draped in the usual sterile fashion and general anesthesia was applied and REYES probe was inserted by anesthesia team. Reevaluat ion with the REYES showed no LA appendage thrombus and the o stium was measuring about 20 mm in longest diameter. Then, we took a micropuncture kit, accessed the right femoral vein under ultrasound guidance and plac ed an 8-Gibraltarian sheath and then upgraded to 16-Gibraltarian Cook sheath and gave partial dose of heparin. I then took a SL1 sheath into the SVC over a wire and then with a needle mustapha magdaleno, we descended under the guidance of fluoroscopy and REYES into the interatr ial septum and the mid-mid position, a transseptal puncture was don e successfully. We advanced the SL1 sheath into the left atrium, measured the LA pressure at 15 mmHg and then we took a ProTrack wire into the left atrium and exchanged the SL1 sheath for the Watchman double curve sheath. Then, we took a pigtail into the l eft atrium, removed the wire and navigated the pigtail into the left atrial a ppendage and RAUSCH caudal 20-20 view and advanced the Watchman sheath ov er it and then we took the left atrial appendage angiogram and dete rmined that the ostium diameter was 21 mm and 27 mm. Closure device will be suitable for closure. To ok that device and prepped in the usual sterile fashion an d under positive flush and after bleeding back from the sheath, the pigtail was removed and introduced the Watchman delivery system into the left atrial appenda ge and the device was deployed under fluoroscopy and REYES guidance with no complications and P ASS criteria including position, leak, tug and compression, which was about 18%. They w ere all satisfactory. The device was released in placed and the sheath was removed as well as the Cook sheath and placed a jjmogk-cl-fexlu suture with good hemostasis. The patient was sent to recovery in stable condition. IMPRESSION: Successful left atrial appendage kaylie sure using 27 mm Watchman 2.5 PATIENT NAME: TONY ORELLANA ACCOUNT #: G [id number] closure device. Admit [facility], obtain echo in the morning and chest x-ray and discharge home on anticoagul ation for another 45 days, at which time a REYES will be done to evaluate the arlene ce and stop anticoagulation if the device is sealed very well. Dictated By: Rikki Goel MD WT: CATH:LOKI/JAYLIN/SUZANNE Conf#: [id number]/DID#: [id number] Authenticated by Rikki Goel MD On 04/28/2020 03:49:43 PM Electronically Signed by Rikki Goel MD on at 1550 PATIENT NAME: TONY ORELLANA ACCOUNT #: [id number] 2020-03-19 13:20:00-00:00 HCACL [facility] ([facility]) Discharge Summary REPORT#:[id number] REPORT STATUS: Signed DATE:03/19/20 TIME: 1320 PATIENT: TONY ORELLANA UNIT #: [id number] [facility] [facility] : [facility] AGE: 84 SEX: M ATTEND: Florencio Catherine DO ADM AUTHOR: Florencio Catherine DO * ALL edits or amendments must be made on the [employer]/computer document * PCP PCP Discharge to: home General Information Problem List/A P: 1. Afib 2. HTN (hypertension) 3. HLD (hyperlipidemia) Date of admission: Observation Start Date: Date of admission: 03/18/20 Discharge date: 03/19/20 Admission diagnosis: afib htn hld Discharge diagnosis: afib htn hld Hospital course: 84 yo male with hx of afib, HTn who is being adm itted post Watchman device implantation by Dr. Goel. Patient reportedly h ad bleeding while on anticoagulation with xarelto, therefore was rommel mmended to undergo watchman. Post procedure patient denies chest pain, shortn ness of breath. He will be admitted for monitoring purpose. 1. afib - s/p watchman - monitor on TELE - resume Xarelto and ASA per dr Goel - REYES - no thrombus -monitored overnight -hemodynamically stable -tele - VPaced 60s -R groin soft; no hematoma; suture removed -resume AC xarelto + asa 81mg daily -ok to d/c from EP standpoint; outpt f/u w/ DR.R JACOBO in 2 weeks 2. HTN - resume oral home meds 3. HLD - cont meds -dc home after monitoring - Consultants: cardiology Pt. condition on discharge: stable Med Rec PCP PCP: PCP: No Primary or Family Physician Med Rec Discharge meds: Continue taking these medications: FINASTERIDE (PROSCAR) 5 MG TAB 5 MILLIGRAM ORAL DAILY. LOSARTAN (COZAAR) 100 MG TAB 100 MILLIGRAM ORAL DAILY. ATORVASTATIN (LIPITOR) 40 MG TAB 40 MILLIGRAM ORAL DAILY. GABAPENTIN (NEURONTIN) 100 MG CAP 100 MILLIGRAM ORAL THREE TIMES A DAY. RIVAROXABAN (XARELTO) 15 MG TAB 15 MILLIGRAM ORAL DAILY. amLODIPine (NORVASC) 5 MG TAB 5 MILLIGRAM ORAL DAILY. HYDROCHLOROTHIAZIDE (HCTZ) 12.5 MG CAP 12.5 MILLIGRAM ORAL DAILY. ASPIRIN EC (ECOTRIN) 81 MG TAB.EC 81 MILLIGRAM ORAL DAILY. [MITOCHONDRIAL ENERGY] 1 TABLET ORAL DAILY. [COSAMIN JOINT HEALTH] 1 TABLET ORAL DAILY. Objective VS/I O Last Documented: Result Date Time Pulse Ox 95 03/19 1233 B/P 142/74 03/19 1233 B/P Mean 96.5 03/19 1233 Temp 98.1 03/19 1233 Pulse 61 03/19 1233 Resp 20 03/19 1233 O2 Delivery Room air 03/19 0435 PATIENT WEIGHT: Weight (lb): 184 Weight (oz): 15.49 Weight (kg): 83.900 General appearance: alert, awake, oriented Head/Eyes: EOMI, PERRLA Cardiovascular: regular rate rhythm, normal hear t sounds Respiratory: clear to auscultation GI: soft, non-tender Extremities: moves all, no edema-all extremities Neuro/AGRICULTURAL MECHANIC: alert, oriented X 3 Results Findings/Data: Laboratory Tests: 03/19 03/18 03/18 0536 1520 1507 Chemistry Sodium (134 - 147 mEq/L) 140 Potassium (3.4 - 5.0 mEq/L) 3.6 Chloride (100 - 108 mEq/L) 109 H Carbon Dioxide (21 - 33 mEq/l) 24 Anion Gap (0 - 20) 11 BUN (7 - 18 mg/dL) 20 H Creatinine (0.6 - 1.3 mg/dL) 1.1 Glomerular Filtr Rate (70 - 80) 63.8 L Glucose (70 - 110 mg/dL) 199 H Calcium (8.0 - 10.5 mg/dL) 8.8 Coagulation Activated Coag Time (74 - 137 SEC) 241 H 246 H Hematology WBC (4.5 - 11.0 x10 3/uL) 9.4 RBC (4.00 - 5.60 x10 6/uL) 3.79 L Hgb (12.5 - 16.9 g/dL) 11.7 L Hct (37.5 - 50.7 %) 34.8 L MCV (81.0 - 99.0 fL) 91.8 MCH (27.0 - 33.0 pg) 30.9 MCHC (33.0 - 37.0 g/dL) 33.6 RDW (11.5 - 14.5 %) 12.9 Plt Count (150 - 400 x10 3/uL) 304 MPV (7.0 - 9.0 fL) 9.8 H Neut % (Auto) (56.0 - 77.0 %) 86.4 H Lymph % (Auto) (14.0 - 32.0 %) 10.6 L [place] % (Auto) (4.8 - 9.0 %) 2.6 L Eos % (Auto) (0.3 - 3.7 %) 0.0 L Baso % (Auto) (0.0 - 2.0 %) 0.1 Neut # (Auto) (2.0 - 7.6 x10 3/uL) 8.12 H Lymph # (Auto) (1.0 - 3.8 x10 3/uL) 1.00 [place] # (Auto) (0.1 - 0.8 x10 3/uL) 0.24 Eos # (Auto) (0.0 - 0.2 x10 3/uL) 0.00 Baso # (Auto) (0.0 - 0.2 x10 3/uL) 0.01 Abs Immat Gran (auto) (0.00 - 0.03 x10 3/uL) 0. 03 Add Manual Diff NO Immature Gran % (0.0 - 2.0 %) 0.3 Nucleated RBC % (0 - 0 %) 0.0 Nucleated RBCs # (Man) (0.0 - 0.1 x10 3/uL) 0.0 0 Results: EKG personally reviewed Discharge Instructions PCP )( Discharge to: Home/Self Care Discharge Instructions Additional Discharge Routines: PCP Follow-Up, Co nsultant Follow-Up )( Diet: Cardiac )( Activity: Resume Normal Activity Follow-up Appointments PCP follow up: PCP: No Primary or Family Physician PCP follow up timeframe: In 1-2 weeks Special instructions: CALL OFFICE FOR APPOINTMENT Consulting provider 1: Provider 1: Rikki Goel MD Specialty: CardiologyInterventional Consult follow up timeframe: 2 WEEKS Special instructions: CALL OFFICE FOR APPOINTMENT Electronically Signed by Florencio Catherine DO on 0 05/04/20 at 2046 [facility] #:[id number] END OF REPORT 2020-03-19 11:25:00-00:00 [phone] [place] [address] PATIENT NAME: TONY ORELLANA ADMIT DATE: 03/18/20 ACCOUNT NO: [id number] ROOM NO: G.3346 AGE: 84 REPORT TYPE: eECHOCARDIOGRAM REPORT SEX: M ADMITTING PHYSICIAN:Florencio Catherine DO ATTENDING PHYSICIAN:Florencio Catherine DO *[place] [address] Transthoracic Echocardiogram Patient: Tony Orellana Study Date: 03/19/2020 BP: 135 / 68 Location: [facility] URN: [id number] : 1935 Age: 84 Height: 70 in / 177.8 cm Gender: M Weight: 183 .6 lb / 83.5 kg BMI/BSA: 26.4 kg/m 2 / 2.01 m 2 *Ordering Physician: * Suzette Snell *Interpreting Physician: * Hai Sparrow MD *[employer]: * Savanah Choi Indications: POST WATCHMAN. Study data: Transthoracic echocardiogram. Proced ure: Transthoracic echocardiography was performed. Image quality wa s adequate. Complete 2D, complete spectral Doppler, and color Doppler . Location: Bedside. Patient status: Inpatient. Patient room number: 3346. Study status: Routine. Findings Left ventricle: The cavity size is normal. Wall thickness is normal. Systolic function is normal. The estimated eject ion fraction is 55-60%. Wall motion is normal; there are no regional wal l motion abnormalities. Left ventricular diastolic function parameters a re normal. Right ventricle: The cavity size is normal. Syst olic function is PATIENT NAME: TONY ORELLANA ACCOUNT #: G [id number] normal. Left atrium: The atrium is normal in size. Right atrium: The atrium is normal in size. Aorta: Aortic root: The aortic root is normal in size. Aortic valve: The valve is structurally normal. The valve is trileaflet. There is no evidence of stenosis. Th ere is no regurgitation. Mitral valve: The valve is structurally normal. There is no evidence of stenosis. There is no regurgitation. Tricuspid valve: The valve is structurally mandeep l. There is no regurgitation. Pulmonic valve: The valve is structurally normal . There is no regurgitation. Pericardium: There is no pericardial effusion. S /P watchman. Pulmonary arteries: The main pulmonary artery is normal-sized. Systemic veins: Inferior vena cava: The vessel is normal in size . Measurements Left ventricle Value Ref JUANA, LAX 4.8 cm 4.2 - 5.8 ESD, LAX 3.3 cm 2.5 - 4.0 ESD/bsa, LAX 1.6 cm/m 2 1.3 - 2.1 FS, LAX 31 % 25 - 43 ESD/bsa major ax, A4C 3.1 cm/m 2 --------- JUANA/bsa minor ax, A4C 3.1 cm/m 2 --------- JUANA major ax, A2C 7.0 cm --------- JUANA/bsa major ax, A2C 3.5 cm/m 2 --------- PW, ED 1.2 cm 0.6 - 1.0 IVS/PW, ED 0.99 --------- EF 58 % 52 - 72 LVOT Value Ref Diam, S 2.03 cm --------- Area 3.2 cm 2 --------- Ventricular septum Value Ref IVS, ED 1.2 cm 0.6 - 1.0 Right ventricle Value Ref JUANA, LAX 2.8 cm --------- Left atrium Value Ref Vol/bsa, ES, 1-p A4C 43 ml/m 2 12 - 37 Vol/bsa, ES, A/L 52 ml/m 2 16 - 34 AP dim, ES MM 4.6 cm 3.0 - 4.0 LA/Ao root ratio, MM 1.35 --------- Aortic valve Value Ref Leaflet sep, MM 1.93 cm --------- PATIENT NAME: TONY ORELLANA ACCOUNT #: G [id number] Mitral valve Value Ref E-septal separation 0.5 cm --------- E-F slope 0.08 m/sec --------- Aortic root Value Ref Root diam, ED MM 3.37 cm --------- Conclusions Summary: 1. Left ventricle: The cavity size is normal. Wa ll thickness is normal. Systolic function is normal. The estimated ejec tion fraction is 55-60%. Wall motion is normal; there are no reg ional wall motion abnormalities. Left ventricular diastolic funct ion parameters are normal. 2. Pericardium, extracardiac: There is no perica rdial effusion. Prepared and electronically signed by Hai Sparrow MD 03/19/2020 11:25 Electronically Signed by Hai Sparrow MD on at 1126 PATIENT NAME: TONY ORELLANA ACCOUNT #: G [id number] 2020-03-19 10:32:00-00:00 [facility] Progress Note REPORT#:[id number] REPORT STATUS: Signed DATE:03/19/20 TIME: 1032 PATIENT: TONY ORELLANA UNIT #: [id number] ROOM[facility]BED: [facility] : 35 AGE: 84 SEX: M ATTEND: Florencio Catherine DO ADM AUTHOR: Jl Hall * ALL edits or amendments must be made on the [employer]/computer document * Objective General VS/I O Last Documented: Result Date Time Pulse Ox 96 03/19 0832 B/P 125/66 03/19 0832 B/P Mean 85.8 03/19 0832 Temp 36.5 03/19 0832 Pulse 62 03/19 0832 Resp 18 03/19 0832 O2 Delivery Room air 03/19 0435 PATIENT WEIGHT: Weight (lb): 184 Weight (oz): 15.49 Weight (kg): 83.900 Medications: Active Meds + DC'd Last 24 Hrs Atorvastatin Calcium 40 MG DAILY@2100 PO Amlodipine Besylate 5 MG DAILY PO Aspirin 81 MG DAILY PO Finasteride 5 MG DAILY PO Hydrochlorothiazide 12.5 MG DAILY PO Losartan Potassium 100 MG DAILY PO Rivaroxaban 15 MG BEDTIME PO Acetaminophen 650 MG Q4H PRN PRN PO Hydrocodone Bitart/Acetaminophen 1 TAB Q6H PRN P RN PO Lactulose 20 GM Q6H PRN PRN PO Morphine Sulfate 4 MG Q4H PRN PRN IV Ondansetron HCl 4 MG Q4H PRN PRN IV Temazepam 15 MG BEDTIME PRN PRN PO Glycopyrrolate 0 .STK-MED ONE .ROUTE (DC) Neostigmine Methylsulfate 0 .STK-MED ONE .ROUTE (DC) Protamine Sulfate 0 .STK-MED ONE IV (DC) Sodium Chloride 1,000 ML ONCE ONE IV (DC) Sodium Chloride 5 ML ASDIR PRN IV (DC) Sodium Chloride 10 ML ASDIR PRN IV (DC) Sodium Chloride 250 ML ASDIR PRN IV Gabapentin 100 MG TID PO Bupivacaine HCl 0 .STK-MED ONE .ROUTE (DC) Cefazolin Sodium 0 .STK-MED ONE .ROUTE (DC) Heparin Sodium 0 .STK-MED ONE .ROUTE (DC) Heparin Sodium/Sodium Chloride 2,000 ML .STK-MED ONE IV (DC) Dexamethasone Sodium Phosphate 0 .STK-MED ONE .R OUTE (DC) Fentanyl Citrate 0 .STK-MED ONE .ROUTE (DC) Heparin Sodium 0 .STK-MED ONE .ROUTE (DC) Lidocaine HCl 0 .STK-MED ONE .ROUTE (DC) Midazolam HCl 0 .STK-MED ONE .ROUTE (DC) Ondansetron HCl 0 .STK-MED ONE .ROUTE (DC) Propofol 20 ML .STK-MED ONE IV (DC) Rocuronium [place] 0 .STK-MED ONE IV (DC) Sodium Chloride 250 ML .STK-MED ONE IV (DC) Lidocaine HCl 5 ML .STK-MED ONE LOCAL (DC) Lidocaine HCl 0 .STK-MED ONE .ROUTE (DC) Phenylephrine HCl 250 ML .STK-MED ONE IV (DC) Fentanyl Citrate 100 MCG PACU Q10MIN PRN PRN IV (DC) Fentanyl Citrate 50 MCG PACU Q10MIN PRN PRN IV ( DC) Hydralazine HCl 2 MG PACU Q10MIN PRN PRN IV (DC) Hydrocodone Bitart/Acetaminophen 1 TAB PACU ONCE PO (DC) Hydromorphone HCl 1 MG PACU Q10MIN PRN PRN IV (D C) Hydromorphone HCl 0.5 MG PACU Q5MIN PRN PRN IV ( DC) Insulin Human Lispro 0 PACU ONCE PRN SUBQ (DC) Labetalol HCl 5 MG PACU Q10MIN PRN PRN IV (DC) Meperidine HCl 12.5 MG PACU ONCE PRN IV (DC) Morphine Sulfate 2 MG PACU Q10MIN PRN PRN IV (DC ) Ondansetron HCl 4 MG PACU ONCE PRN IV (DC) Ropivacaine 150 MG ASDIR PRN LOCAL (DC) Tramadol HCl 50 MG PACU ONCE PO (DC) Sodium Chloride 1,000 ML Q24H IV Acetaminophen 1,000 MG PREOP ONCALL PO (DC) Lactated Ringer's 1,000 ML PREOP ONCALL IV (DC) Lidocaine HCl 2 ML PREOP ONCALL LOCAL (DC) Lidocaine HCl 2 ML PREOP ONCALL LOCAL (DC) Sodium Chloride 500 ML PREOP ONCALL IV (DC) Sodium Chloride 500 ML PREOP ONCALL IV (DC) Sodium Chloride 1,000 ML PREOP ONCALL IV (DC) Sodium Chloride 5 ML ASDIR PRN IV (DC) Sodium Chloride 10 ML ASDIR PRN IV (DC) Sodium Chloride 250 ML ASDIR PRN IV (DC) Physical Exam General appearance: alert, awake, oriented, no a cute distress Cardiovascular: CV assessment: VPaced Respiratory: clear to auscultation, no distress Abdomen: soft, non-tender Extremities: moves all Neuro/AGRICULTURAL MECHANIC: alert, oriented X 3 Skin: dry Wound/incision: Location: R groin soft; no hematoma; suture removed Findings/Data: Laboratory Tests: 03/19 03/18 03/18 0536 1520 1507 Chemistry Sodium (134 - 147 mEq/L) 140 Potassium (3.4 - 5.0 mEq/L) 3.6 Chloride (100 - 108 mEq/L) 109 H Carbon Dioxide (21 - 33 mEq/l) 24 Anion Gap (0 - 20) 11 BUN (7 - 18 mg/dL) 20 H Creatinine (0.6 - 1.3 mg/dL) 1.1 Glomerular Filtr Rate (70 - 80) 63.8 L Glucose (70 - 110 mg/dL) 199 H Calcium (8.0 - 10.5 mg/dL) 8.8 Coagulation Activated Coag Time (74 - 137 SEC) 241 H 246 H Hematology WBC (4.5 - 11.0 x10 3/uL) 9.4 RBC (4.00 - 5.60 x10 6/uL) 3.79 L Hgb (12.5 - 16.9 g/dL) 11.7 L Hct (37.5 - 50.7 %) 34.8 L MCV (81.0 - 99.0 fL) 91.8 MCH (27.0 - 33.0 pg) 30.9 MCHC (33.0 - 37.0 g/dL) 33.6 RDW (11.5 - 14.5 %) 12.9 Plt Count (150 - 400 x10 3/uL) 304 MPV (7.0 - 9.0 fL) 9.8 H Neut % (Auto) (56.0 - 77.0 %) 86.4 H Lymph % (Auto) (14.0 - 32.0 %) 10.6 L [place] % (Auto) (4.8 - 9.0 %) 2.6 L Eos % (Auto) (0.3 - 3.7 %) 0.0 L Baso % (Auto) (0.0 - 2.0 %) 0.1 Neut # (Auto) (2.0 - 7.6 x10 3/uL) 8.12 H Lymph # (Auto) (1.0 - 3.8 x10 3/uL) 1.00 [place] # (Auto) (0.1 - 0.8 x10 3/uL) 0.24 Eos # (Auto) (0.0 - 0.2 x10 3/uL) 0.00 Baso # (Auto) (0.0 - 0.2 x10 3/uL) 0.01 Abs Immat Gran (auto) (0.00 - 0.03 x10 3/uL) 0. 03 Add Manual Diff NO Immature Gran % (0.0 - 2.0 %) 0.3 Nucleated RBC % (0 - 0 %) 0.0 Nucleated RBCs # (Man) (0.0 - 0.1 x10 3/uL) 0.0 0 Diagnosis, Assessment Plan Free Text A P: -s/p Watchman per -monitored overnight -hemodynamically stable -tele - VPaced 60s -R groin soft; no hematoma; suture removed -resume AC xarelto + asa 81mg daily -ok to d/c from EP standpoint; outpt f/u w/ DR.R JACOBO in 2 weeks Electronically Signed by Jl Hall on 0 03/19/20 at 1120 RPT #:[id number] END OF REPORT 2020-03-19 10:32:00-00:00 [facility] ([facility]) EP Progress Note REPORT#:[id number] REPORT STATUS: Signed DATE:03/19/20 TIME: 1032 PATIENT: TONY ORELLANA UNIT #: [id number] ROOM/BED: [place] [address] : 35 AGE: 84 SEX: M ATTEND: Florencio Catherine DO ADM AUTHOR: Jl Hall * ALL edits or amendments must be made on the [employer]/computer document * Objective General VS/I O Last Documented: Result Date Time Pulse Ox 96 03/19 0832 B/P 125/66 03/19 0832 B/P Mean 85.8 03/19 0832 Temp 36.5 03/19 0832 Pulse 62 03/19 0832 Resp 18 03/19 0832 O2 Delivery Room air 03/19 0435 PATIENT WEIGHT: Weight (lb): 184 Weight (oz): 15.49 Weight (kg): 83.900 Medications: Active Meds + DC'd Last 24 Hrs Atorvastatin Calcium 40 MG DAILY@2100 PO Amlodipine Besylate 5 MG DAILY PO Aspirin 81 MG DAILY PO Finasteride 5 MG DAILY PO Hydrochlorothiazide 12.5 MG DAILY PO Losartan Potassium 100 MG DAILY PO Rivaroxaban 15 MG BEDTIME PO Acetaminophen 650 MG Q4H PRN PRN PO Hydrocodone Bitart/Acetaminophen 1 TAB Q6H PRN P RN PO Lactulose 20 GM Q6H PRN PRN PO Morphine Sulfate 4 MG Q4H PRN PRN IV Ondansetron HCl 4 MG Q4H PRN PRN IV Temazepam 15 MG BEDTIME PRN PRN PO Glycopyrrolate 0 .STK-MED ONE .ROUTE (DC) Neostigmine Methylsulfate 0 .STK-MED ONE .ROUTE (DC) Protamine Sulfate 0 .STK-MED ONE IV (DC) Sodium Chloride 1,000 ML ONCE ONE IV (DC) Sodium Chloride 5 ML ASDIR PRN IV (DC) Sodium Chloride 10 ML ASDIR PRN IV (DC) Sodium Chloride 250 ML ASDIR PRN IV Gabapentin 100 MG TID PO Bupivacaine HCl 0 .STK-MED ONE .ROUTE (DC) Cefazolin Sodium 0 .STK-MED ONE .ROUTE (DC) Heparin Sodium 0 .STK-MED ONE .ROUTE (DC) Heparin Sodium/Sodium Chloride 2,000 ML .STK-MED ONE IV (DC) Dexamethasone Sodium Phosphate 0 .STK-MED ONE .R OUTE (DC) Fentanyl Citrate 0 .STK-MED ONE .ROUTE (DC) Heparin Sodium 0 .STK-MED ONE .ROUTE (DC) Lidocaine HCl 0 .STK-MED ONE .ROUTE (DC) Midazolam HCl 0 .STK-MED ONE .ROUTE (DC) Ondansetron HCl 0 .STK-MED ONE .ROUTE (DC) Propofol 20 ML .STK-MED ONE IV (DC) Rocuronium [place] 0 .STK-MED ONE IV (DC) Sodium Chloride 250 ML .STK-MED ONE IV (DC) Lidocaine HCl 5 ML .STK-MED ONE LOCAL (DC) Lidocaine HCl 0 .STK-MED ONE .ROUTE (DC) Phenylephrine HCl 250 ML .STK-MED ONE IV (DC) Fentanyl Citrate 100 MCG PACU Q10MIN PRN PRN IV (DC) Fentanyl Citrate 50 MCG PACU Q10MIN PRN PRN IV ( DC) Hydralazine HCl 2 MG PACU Q10MIN PRN PRN IV (DC) Hydrocodone Bitart/Acetaminophen 1 TAB PACU ONCE PO (DC) Hydromorphone HCl 1 MG PACU Q10MIN PRN PRN IV ( DC) Hydromorphone HCl 0.5 MG PACU Q5MIN PRN PRN IV ( DC) Insulin Human Lispro 0 PACU ONCE PRN SUBQ (DC) Labetalol HCl 5 MG PACU Q10MIN PRN PRN IV (DC) Meperidine HCl 12.5 MG PACU ONCE PRN IV (DC) Morphine Sulfate 2 MG PACU Q10MIN PRN PRN IV (DC ) Ondansetron HCl 4 MG PACU ONCE PRN IV (DC) Ropivacaine 150 MG ASDIR PRN LOCAL (DC) Tramadol HCl 50 MG PACU ONCE PO (DC) Sodium Chloride 1,000 ML Q24H IV Acetaminophen 1,000 MG PREOP ONCALL PO (DC) Lactated Ringer's 1,000 ML PREOP ONCALL IV (DC) Lidocaine HCl 2 ML PREOP ONCALL LOCAL (DC) Lidocaine HCl 2 ML PREOP ONCALL LOCAL (DC) Sodium Chloride 500 ML PREOP ONCALL IV (DC) Sodium Chloride 500 ML PREOP ONCALL IV (DC) Sodium Chloride 1,000 ML PREOP ONCALL IV (DC) Sodium Chloride 5 ML ASDIR PRN IV (DC) Sodium Chloride 10 ML ASDIR PRN IV (DC) Sodium Chloride 250 ML ASDIR PRN IV (DC) Physical Exam General appearance: alert, awake, oriented, no a cute distress Cardiovascular: CV assessment: VPaced Respiratory: clear to auscultation, no distress Abdomen: soft, non-tender Extremities: moves all Neuro/AGRICULTURAL MECHANIC: alert, oriented X 3 Skin: dry Wound/incision: Location: R groin soft; no hematoma; suture removed Findings/Data: Laboratory Tests: 03/19 03/18 03/18 0536 1520 1507 Chemistry Sodium (134 - 147 mEq/L) 140 Potassium (3.4 - 5.0 mEq/L) 3.6 Chloride (100 - 108 mEq/L) 109 H Carbon Dioxide (21 - 33 mEq/l) 24 Anion Gap (0 - 20) 11 BUN (7 - 18 mg/dL) 20 H Creatinine (0.6 - 1.3 mg/dL) 1.1 Glomerular Filtr Rate (70 - 80) 63.8 L Glucose (70 - 110 mg/dL) 199 H Calcium (8.0 - 10.5 mg/dL) 8.8 Coagulation Activated Coag Time (74 - 137 SEC) 241 H 246 H Hematology WBC (4.5 - 11.0 x10 3/uL) 9.4 RBC (4.00 - 5.60 x10 6/uL) 3.79 L Hgb (12.5 - 16.9 g/dL) 11.7 L Hct (37.5 - 50.7 %) 34.8 L MCV (81.0 - 99.0 fL) 91.8 MCH (27.0 - 33.0 pg) 30.9 MCHC (33.0 - 37.0 g/dL) 33.6 RDW (11.5 - 14.5 %) 12.9 Plt Count (150 - 400 x10 3/uL) 304 MPV (7.0 - 9.0 fL) 9.8 H Neut % (Auto) (56.0 - 77.0 %) 86.4 H Lymph % (Auto) (14.0 - 32.0 %) 10.6 L [place] % (Auto) (4.8 - 9.0 %) 2.6 L Eos % (Auto) (0.3 - 3.7 %) 0.0 L Baso % (Auto) (0.0 - 2.0 %) 0.1 Neut # (Auto) (2.0 - 7.6 x10 3/uL) 8.12 H Lymph # (Auto) (1.0 - 3.8 x10 3/uL) 1.00 [place] # (Auto) (0.1 - 0.8 x10 3/uL) 0.24 Eos # (Auto) (0.0 - 0.2 x10 3/uL) 0.00 Baso # (Auto) (0.0 - 0.2 x10 3/uL) 0.01 Abs Immat Gran (auto) (0.00 - 0.03 x10 3/uL) 0. 03 Add Manual Diff NO Immature Gran % (0.0 - 2.0 %) 0.3 Nucleated RBC % (0 - 0 %) 0.0 Nucleated RBCs # (Man) (0.0 - 0.1 x10 3/uL) 0.0 0 Diagnosis, Assessment Plan Free Text A P: -s/p Watchman per -monitored overnight -hemodynamically stable -tele - VPaced 60s -R groin soft; no hematoma; suture removed -resume AC xarelto + asa 81mg daily -ok to d/c from EP standpoint; outpt f/u w/ DR.R JACOBO in 2 weeks Electronically Signed by Jl Hall on 0 03/19/20 at 1120 Electronically Signed by Rikki Goel MD on at 09 RPT #:[id number] END OF REPORT 2020-03-18 16:57:00-00:00 [facility]L [facility] ([facility]) History Physical - Adult REPORT#:[id number] REPORT STATUS: Signed DATE:03/18/20 TIME: 1657 PATIENT: TONY ORELLANA UNIT #: [id number] ROOM/BED: [place] [address] : 35 AGE: 84 SEX: M ATTEND: Florencio Catherine DO ADM AUTHOR: Florencio Catherine DO * ALL edits or amendments must be made on the [employer]/computer document * History of Present Illness HPI Chief complaint: afib HPI: 84 yo male with hx of afib, HTn who is being adm itted post Watchman device implantation by Dr. Goel. Patient reportedly h ad bleeding while on anticoagulation with xarelto, therefore was rommel mmended to undergo watchman. Post procedure patient denies chest pain, shortn ness of breath. He will be admitted for monitoring purpose. History Past medical history: Reports: Atrial fibrillation, Coronary artery di sease, Hypertension, Dyslipidemia. Family history: Denies: CAD < 40 yrs old. Alcohol use: Denies EtOH use Drug use: Denies recreational drugs Smoking status: Smoking status for patients 13 years old or old er: Former Smoker Medication/Allergy-Vaccine Hx Allergies: Coded Allergies: adhesive tape (SKIN BURN 03/16/20) Uncoded Allergies: TAPE (SKIN BURN 03/16/20) Review of Systems All systems rev neg: except as marked Physical Exam VS/I O Vital Signs: Date Time Temp Pulse Resp B/P B/P Pulse O2 O2 F low FiO2 Mean Ox Delivery Rate 03/18 1322 96.8 63 18 172/75 99 Room air PATIENT WEIGHT: Weight (lb): 184 Weight (oz): 15.49 Weight (kg): 83.900 General appearance: alert, awake, oriented Head/Eyes: EOMI Neck: non-tender, no JVD Cardiovascular: regular rate rhythm, normal hear t sounds Respiratory: clear to auscultation, no distress, no tenderness Abdomen/GI: active bowel sounds, soft Extremities: moves all, no edema-all extremities Neuro/AGRICULTURAL MECHANIC: alert, oriented X 3 Results Findings/Data: Laboratory Tests: 03/18 03/18 1520 1507 Coagulation Activated Coag Time (74 - 137 SEC) 241 H 246 H Results: EKG personally reviewed Diagnosis, Assessment Plan Problem List/A P: 1. Afib 2. HTN (hypertension) 3. HLD (hyperlipidemia) Consultants: cardiology Free Text DxA P Notes Free Text DxA P Notes: 84 yo male with hx of afib, HTn who is being adm itted post Watchman device implantation by Dr. Goel. Patient reportedly h ad bleeding while on anticoagulation with xarelto, therefore was rommel mmended to undergo watchman. Post procedure patient denies chest pain, shortn ness of breath. He will be admitted for monitoring purpose. 1. afib - s/p watchman - monitor on TELE - resume Xarelto and ASA per dr Goel 2. HTN - resume oral home meds 3. HLD - cont meds dc home after monitoring Electronically Signed by Florencio Catherine DO on 0 05/04/20 at 2037 RPT #:[id number] END OF REPORT 2020-03-18 15:47:00-00:00 [facility] ([facility]) Clinical Note REPORT#:[id number] REPORT STATUS: Signed DATE:03/18/20 TIME: 154 PATIENT: TONY ORELLANA UNIT #: [id number] ROOM/BED: [place] [address] : 35 AGE: 84 SEX: M ATTEND: Florencio Catehrine DO ADM AUTHOR: Suzette Snell ESTHETICIAN/SPA COORDINATOR * ALL edits or amendments must be made on the [employer] document * Clinical Note Note: REYES performed-No Thrombus. Watchman deployed 27m m. at 1548 RPT #:[id number] END OF REPORT 2020-03-16 11:41:00-00:00 [id number] [place] [address] PATIENT NAME: TONY ORELLANA ADMIT DATE: ACCOUNT NO: [id number] ROOM NO: AGE: 84 REPORT TYPE: eELECTROCARDIOGRAM REPORT SEX: M ADMITTING PHYSICIAN: ATTENDING PHYSICIAN:Rikki Goel MD Order: [id number] Test Reason : PRE PROCEDURE Test Date/Time Stamp: SunMar 16 2020 11:41:29 Blood Pressure : / mmHG Vent. Rate : 060 BPM Atrial Rate : 066 BPM P-R Int : 000 ms QRS Dur : 176 ms QT Int : 496 ms P-R-T Axes : 000 -86 085 degre es QTc Int : 496 ms Ventricular-paced rhythm Abnormal ECG PRE_OP Confirmed by MAGDIEL KOVACS, EHSAN ([id number]) on 03/16/19 12:43:20 PM Referred By: Rikki Goel Confirmed by:EHSAN SORTO MD at 1243 PATIENT NAME: TONY ORELLANA ACCOUNT #: [id number]
--- NOTE | 2022-08-04 10:58 | RAD REPORT ---
EXAM DESCRIPTION: CT - Ct Stroke Brain Wo Cont - 08/04/2022 10:45 am CLINICAL HISTORY: STROKE ALERT COMPARISON: Head angio dated 08/04/2022; HEAD BRAIN W O CONTRAST dated 07/14/2014 TECHNIQUE: All CT scans are performed using dose optimization technique as appropriate and may inclu de automated exposure control or mA/KV adjustment according to patient size. FINDINGS: No intracranial hemorrhage, hydrocephalus or extra-axial fluid collection.Scattered areas of white matter hypoattenuation including bilateral age indeterminate basal ganglia lacunar infarcts and possibly small centrum semiovale remote infarcts. Background of chronic small vessel ischemic diane nges. The paranasal sinuses and mastoids are clear. The calvarium is intact. IMPRESSION: No acute large vascular territory infarct or intracranial hemorrhage. Age indeterminate but possibly chronic basal ganglia and deep white matter infarcts as noted above. MRI could better a ssess. Discussed with Dr. Gamboa by Dr. Saab at 1039 on 08/04/22
[2022-08-04 11:00] LABS: Hematocrit 33.5 % (39.6-49.0); Lymphocytes % 34.7 % (15.3-44.8); MCV 91.3 fL (80-100); MPV 7.8 fL (7.6-11.3); RBC Red Blood Cell Count 3.67 M/uL (4.33-5.43)
--- NOTE | 2022-08-04 11:00 | RAD REPORT ---
EXAM DESCRIPTION: CT - Neck Angio - 08/04/2022 10:45 am CLINICAL HISTORY: HEADACHE COMPARISON: No comparisons TECHNIQUE: CT angiography of the neck vessels was performed with maximum intensity reformatted image s. 3D maximum intensity pixel (MIP) reconstructions were created CAROTID STENOSIS REFERENCE USING NASCET CRITERIA: Mild - <50% stenosis. Moderate - 50-69% stenosis. Severe - 70-94% stenosis. Near occlusion - 95-99% stenosis. Occluded - 100% stenosis. All CT scans are performed using dose optimization technique as appropriate and may include automated exposure control or mA/KV adjustment according to patient size. FINDINGS: A left aortic arch is identified with normal three vessel configuration of the great vesse ls. No significant flow abnormality is seen of the common carotid bilaterally. No significant stenosis is identified involving the cervical segments of both internal carotid arteri es. Calcified bilateral ICA plaque. Normal flow is seen within both vertebral arteries. IMPRESSION: No significant flow abnormality of the neck vessels is identified.
--- NOTE | 2022-08-04 11:02 | RAD REPORT ---
EXAM DESCRIPTION: CT - Head angio - 08/04/2022 10:45 am CLINICAL HISTORY: Dizziness;TIA;Weakness COMPARISON: HEAD BRAIN W O CONTRAST dated 07/14/2014 TECHNIQUE: CT angiography of the head was performed with maximum intensity reformatted images. 3D ma ximum intensity pixel (MIP) reconstructions were created All CT scans are performed using dose optimization technique as appropriate and may include automated exposure control or mA/KV adjustment according to patient size. FINDINGS: Anterior circulation: No aneurysm or large vessel occlusion. No hemodynamically significant stenosis. No arteriovenous malf ormation identified. Intracranial calcified plaque. Posterior circulation: No aneurysm or large vessel occlusion. No hemodynamically significant stenosis. No arteriovenous malf ormation identified. IMPRESSION: No significant flow abnormality is detected.
[2022-08-04 11:11] LABS: Protime INR 1.11
[2022-08-04 11:24] LABS: ALT/SGPT 21 U/L (16-61); AST/SGOT 15 U/L (15-37); Albumin 3.8 g/dL (3.4-5.0); Alkaline Phosphatase 76 U/L (45-117); BUN Blood Urea Nitrogen 26 mg/dL (7-18); Bicarbonate 27 mEq/L (21-32); Bilirubin Direct 0.2 mg/dL (0-0.2); Bilirubin Indirect, Calculated 0.5 mg/dL (0.2-0.8); Bilirubin Total 0.7 mg/dL (0.2-1.0); C-Reactive Protein < 2.90 mg/L (<3.00); Glomerular Filtration Rate 56 ml/min (=/>90); Glucose Level 106 mg/dL (74-106); HDL Cholesterol 33 mg/dL (40-60); LDL Cholesterol, Calculated 36 mg/dL (<130); Magnesium 2.3 mg/dL (1.6-2.4); NT PRO-BNP 1141 pg/mL (<450); Potassium 3.9 mEq/L (3.5-5.1); Protein, Total 7.3 g/dL (6.4-8.2); Sodium Level 139 mEq/L (136-145); Troponin High Sensitivity 9.5 pg/mL (<58.9)
--- NOTE | 2022-08-04 11:24 | RAD REPORT ---
EXAM DESCRIPTION: RAD - Chest Single View - 08/04/2022 11:18 am CLINICAL HISTORY: COUGH COMPARISON: Chest Single View dated 08/16/2019; CHEST SINGLE VIEW dated 01/06/2015; CHEST SINGLE VIEW dated 01/05/2015; CHEST PA AND LAT 2 VIEW dated 07/14/2014 FINDINGS: Lines: Pacemaker. Lungs: No evidence of edema or pneumonia. Pleural: No significant pleural effusions or pneumothorax. Cardiac: The heart size is within normal limits. Mediastinum: Within normal limits. Bones: No acute fractures. Other: None IMPRESSION: No acute cardiopulmonary disease.
[2022-08-04] MEDS ORDERED: ASPIRIN 81 MG CHEWABLE TABLET ONE (11:40)
[2022-08-04] MEDS ORDERED: HEPARIN 5000 UNIT/ML 1 ML VIAL ONE (11:40)
[2022-08-04] MEDS ORDERED: NA CHLORIDE 0.9% 1,000 ML ONE (11:42)
[2022-08-04] MEDS ORDERED: HEPARIN/D5W 25,000 UNIT/500 ML BAG IV ONE (11:42)
[2022-08-04] MEDS ORDERED: FOLIC ACID 5 MG/ML VIAL ONE (11:42)
[2022-08-04] MEDS ORDERED: NA CHLORIDE 0.9% 100 ML ONE (11:42)
--- NOTE | 2022-08-04 12:21 | ER ---
Nurse's Notes [facility] Name: Tony Orellana Age: 86 yrs Sex: Male : 1935 Arrival Date: 08/04/2022 Time: 10:27 Bed 17 Private MD: Gianni Carroll V Diagnosis: Aphasia;Aphasia following cerebral infarction;Cerebral infarction, unspecified;Presence of cardiac pacemaker;Chronic atrial fibrillation-HISTORY OF Presentation: 08/04 10:28 Method Of Arrival: Ambulatory ml4 10:30 Chief complaint: Patient states: R sided facial numbness/tingling, slurred speech. ml4 Coronavirus screen: At this time, the client does not indicate any symptoms associated with coronavirus-19. Ebola Screen: No symptoms or risks identified at this time. An acute neurological deficit is present. The charge nurse has been notified. The patient has been moved to a treatment area. Pre-hospital glucose is not applicable to this patient. Initial Sepsis Screen: Does the patient meet any 2 criteria? No. Patient's initial sepsis screen is negative. Does the patient have a suspected source of infection? No. Patient's initial sepsis screen is negative. Risk Assessment: Do you want to hurt yourself or someone else? Patient reports no desire to harm self or others. Note Pt reports R facial tingling and numbness along w/ slurred speech since waking up this morning. Reports NO symptoms when went to sleep last night. LKW 2200 on 08/04. Not taking thinners. AOX4. Onset of symptoms is unknown. 10:30 Acuity: JASON 2 ml4 10:30 Care prior to arrival: None. Activity prior to arrival:. Mechanism of Injury: No ml4 Mechanism of Injury. Transition of care: patient was not received from another setting of care. Triage Assessment: 10:55 The onset of the patients symptoms was. General: Appears in no apparent distress. ml4 Behavior is calm, cooperative, appropriate for age. Pain: Denies pain. Neuro: Level of Consciousness is awake, alert, obeys commands, Oriented to Bladder Blower are equal bilaterally Gait is steady, Speech is slurred, Tingling in face, right Numbness in face, right Reports numbness in face Denies blurred vision dizziness, headache diplopia. Stroke Activation: Physician: Stroke Attending; Name: ; Notified At: ; Arrived At: Physician: Chief Stroke Resident; Name: ; Notified At: ; Arrived At: Physician: Stroke Resident; Name: ; Notified At: ; Arrived At: Physician: ED Attending; Name: MD Cooper; Notified At: 10:22; Arrived At: Physician: ED Resident; Name: ; Notified At: ; Arrived At: Historical: - Allergies: 10:55 No Known Drug Allergies; ml4 - PMHx: 10:55 Pacemaker; Hypertension; ml4 - Immunization history:: Adult Immunizations. - Family history:: not pertinent. Screenin:09 [facility] ED Fall Risk Assessment (Adult) History of falling in the last 3 months, os including since admission No falls in past 3 months (0 pts) Confusion or Disorientation No (0 pts) Intoxicated or Sedated No (0 pts) Impaired Gait No (0 pts) Mobility Assist Device Used No (0 pt) Altered Elimination No (0 pt) Score/Fall Risk Level 0 - 2 = Low Risk. Abuse screen: Denies threats or abuse. Nutritional screening: No deficits noted. Tuberculosis screening: No symptoms or risk factors identified. Assessment: 10:29 Reassessment: Code stroke called overhead, pt taken to CT by EMILIE Arce. ph 11:50 VAN Scoring: Arm Drift: Patients demonstrates NO arm weakness. Patient is VAN Negative. os Visual Disturbance: No visual disturbance noted. Aphasia: No aphasia noted. Neglect: No neglect noted. TNKase (Tenecteplase) Screening: Contraindications: Other: out of window. 14:30 Neuro: Level of Consciousness is awake, Oriented to person, Bladder Blower are equal bilaterally os Moves all extremities. Gait is steady, Speech is slurred, Patient has improved speech compared to when first arrived in the ED.. Facial symmetry appears normal, Pupils are PERRLA, Intact Babinski. Vital Signs: 10:50 Pain 0/10; ml4 11:52 BP 139 / 71; Pulse 62; Resp 18; Temp 98.4; Pulse Ox 97% on R/A; os 11:54 Weight 81.65 kg (R); os 13:00 BP 145 / 86; Pulse 64; Resp 18; Pulse Ox 98% on R/A; os 14:00 BP 155 / 104; Pulse 65; Resp 17; Pulse Ox 99% on R/A; os 10:50 Pain Scale: Adult ml4 Vitals: 11:52 Cardiac Rhythm Assessment Paced. os [place] Coma Score: 11:52 Eye Response: spontaneous(4). Motor Response: obeys commands(6). Verbal Response: os oriented(5). Total: 15. NIH Stroke Scale Scores: 11:50 NIHSS Score: 2 os ED Course: 10:28 Patient arrived in ED. mr 10:28 Gianni Carroll MD is Private Physician. mr 10:29 Juan Gamboa MD is Attending Physician. diane 10:30 Inserted saline lock: 20 gauge in right antecubital area, using aseptic technique. ld1 Blood collected. 10:40 Jackie Figueroa, EMILIE is Primary Nurse. os 10:47 CT Stroke Brain w/o Contrast In Process Unspecified. EDMS 10:47 CT Head Angio In Process Unspecified. EDMS 10:47 CT Neck Angio In Process Unspecified. EDMS 10:55 Triage completed. ml4 10:57 Arm band placed on Patient placed in a wheelchair, Patient 1029 Code stroke, 1030 ml4 MD Cooper notified + NIH, 1032 CT head non-con, 1038 20g PIV to RA, 1039 CTA, 1043 transferred to [facility] via with all belongings. 10:59 Patient has correct armband on for positive identification. Placed in gown. Bed in low ml4 position. Call light in reach. Side rails up X2. Report given to EMILIE Mejia. Warm blanket given. Head of bed elevated. 11:11 TSH Sent. os 11:11 Lipid Profile Sent. os 11:11 CRP Sent. os 11:11 Basic Metabolic Panel Sent. os 11:11 LFT's Sent. os 11:11 Magnesium Sent. os 11:11 NT PRO-BNP Sent. os 11:11 PT-INR Sent. os 11:11 Troponin HS Sent. os 11:20 XRAY Chest (1 view) In Process Unspecified. EDMS 12:09 No provider procedures requiring assistance completed. os 12:19 Sylvia Hilton MD is Hospitalizing Provider. diane 12:24 Hospitalizing Provider role handed off by Sylvia Hilton MD diane 12:24 Atul Crespo is Hospitalizing Provider. diane 12:58 Willis Varner MD is Hospitalizing Provider. diane Administered Medications: 11:49 Drug: Aspirin PO Chewable Tablet 162 mg Route: PO; os 11:53 Drug: foLIC Acid IVPB 1 mg Route: IVPB; Site: right antecubital; os 12:17 Follow up: Response: No adverse reaction os 11:53 Drug: NS 0.9% IV 1000 ml Route: IV; Rate: 1 bolus; Site: right antecubital; os 12:17 Follow up: Response: No adverse reaction os 11:59 Drug: Heparin (ME-Bolus No thrombolytic) - HEParin IVP 60 units/kg {Co-Signature: ph os (Kathleen Benites RN).} Route: IVP; Site: right antecubital; 12:17 Follow up: Response: No adverse reaction os 12:01 Drug: Heparin (ME Drip) - (D5W IV 500 ml, [place] [address] units) 12 units/kg/hr os {Co-Signature: ph (Kathleen Benites RN).} Route: IV; Rate: calculated rate; Site: right antecubital; 13:13 Drug: Clopidogrel PO 75 mg Route: PO; os 14:34 Follow up: Response: No adverse reaction os Point of Care Testing: Blood Glucose: 11:54 Blood Glucose: 106 mg/dL; os Ranges: Outcome: 12:21 Decision to Hospitalize by Provider. [facility] 18:49 Patient left the ED. nj1 NIH Stroke Scale - NIH Stroke Score Date: 08/04/2022 Time: 11:50 Total Score = 2 10. Dysarthria (speech clarity - read or repeat words) - 1(Mild to Moderate) 11. Extinction and Inattention (visual/tactile/auditory/spatial/personal) - 0(No abnormality) 1a. Level of Consciousness (LOC) - 0(Alert) 1b. Level of Consciousness (LOC) (Month \T\ Age) - 0(Both) 1c. LOC Commands (Open \T\ Closes Eyes/Music Teacher) - 0(Both) 2. Best Gaze (Lateral Gaze Paresis) - 0(Normal) 3. Visual Field Loss - 0(No visual loss) 4. Facial Palsy - 1(Minor Paralysis) 5a. Left Arm: Motor (10-second hold) - 0(No drift) 5b. Right Arm: Motor (10-second hold) - 0(No drift) 6a. Left Leg: Motor (5-second hold - always test supine) - 0(No drift) 6b. Right Leg: Motor (5-second hold - always test supine) - 0(No drift) 7. Limb Ataxia (finger/nose \T\ heel/beaver - test with eyes open) - 0(Absent) 8. Sensory Loss (pinprick arms/legs/face) - 0(Normal) 9. Best Language: Aphasia (description/naming/reading) - 0(No aphasia) Initials: os Signatures: Dispatcher [employer] EDJuan Gallegos MD MD cha Rivera, Rosario Kathleen Benites, RN RN ph Yazmin Hightower, RN RN ld1 Coni Frias, RN RN nj1 Jackie Figueroa, RN RN os Jose G, EMILIEIII, Vipul, RN RN ml4 Kathleen Benites RN ph Corrections: (The following items were deleted from the chart) 10:55 10:55 PMHx: Atrial Fib; ml4 ml4 10:55 10:55 PMHx: High Cholesterol; ml4 ml4
--- NOTE | 2022-08-04 12:21 | EDPHYS ---
Physician Documentation [facility] Name: Tony Orellana Age: 86 yrs Sex: Male : 1935 Arrival Date: 08/04/2022 Time: : Bed 17 Private MD: Gianni Carroll V ED Physician Juan Gamboa HPI: 08/04 12:10 This 86 yrs old Male presents to ER via Ambulatory with complaints of Slurred diaen Speech. 12:10 The patient presents to the emergency department with weakness of the right side of the diane face, that is moderate, a speech or higher order brain function problem, aphasia. Onset: The symptoms/episode began/occurred last night. Context: occurred at home, occurred while the patient was asleep. Associated signs and symptoms: Pertinent positives: headache. Severity of symptoms: At their worst the symptoms were moderate in the emergency department the symptoms are unchanged. Current symptoms: dysphasia, paralysis or paresis, that is mild. The patient has not experienced similar symptoms in the past. Historical: - Allergies: 10:55 No Known Drug Allergies; ml4 - PMHx: 10:55 Pacemaker; Hypertension; ml4 - Immunization history:: Adult Immunizations. - Family history:: not pertinent. ROS: 12:10 Constitutional: Negative for fever, chills, and weight loss, Eyes: Negative for injury, diane pain, redness, and discharge, ENT: Negative for injury, pain, and discharge, Neck: Negative for injury, pain, and swelling, Cardiovascular: Negative for chest pain, palpitations, and edema, Respiratory: Negative for shortness of breath, cough, wheezing, and pleuritic chest pain, Abdomen/GI: Negative for abdominal pain, nausea, vomiting, diarrhea, and constipation, Back: Negative for injury and pain, : Negative for injury, bleeding, discharge, and swelling, MS/Extremity: Negative for injury and deformity, Skin: Negative for injury, rash, and discoloration, Psych: Negative for depression, anxiety, suicide ideation, homicidal ideation, and hallucinations, Allergy/Immunology: Negative for hives, rash, and allergies, Endocrine: Negative for neck swelling, polydipsia, polyuria, polyphagia, and marked weight changes, Hematologic/Lymphatic: Negative for swollen nodes, abnormal bleeding, and unusual bruising. 12:10 Neuro: Positive for speech changes, weakness, of the right cheek, nose and right jaw. Exam: 12:10 Constitutional: This is a well developed, well nourished patient who is awake, alert, diane and in no acute distress. Eyes: Pupils equal round and reactive to light, extra-ocular motions intact. Lids and lashes normal. Conjunctiva and sclera are non-icteric and not injected. Cornea within normal limits. Periorbital areas with no swelling, redness, or edema. ENT: Nares patent. No nasal discharge, no septal abnormalities noted. Tympanic membranes are normal and external auditory canals are clear. Oropharynx with no redness, swelling, or masses, exudates, or evidence of obstruction, uvula midline. Mucous membranes moist. Neck: Trachea midline, no thyromegaly or masses palpated, and no cervical lymphadenopathy. Supple, full range of motion without nuchal rigidity, or vertebral point tenderness. No Meningismus. Chest/axilla: Normal chest wall appearance and motion. Nontender with no deformity. No lesions are appreciated. Cardiovascular: Regular rate and rhythm with a normal S1 and S2. No gallops, murmurs, or rubs. Normal PMI, no JVD. No pulse deficits. Respiratory: Lungs have equal breath sounds bilaterally, clear to auscultation and percussion. No rales, rhonchi or wheezes noted. No increased work of breathing, no retractions or nasal flaring. Abdomen/GI: Soft, non-tender, with normal bowel sounds. No distension or tympany. No guarding or rebound. No evidence of tenderness throughout. Back: No spinal tenderness. No costovertebral tenderness. Full range of motion. Male : Normal genitalia with no discharge or lesions. Skin: Warm, dry with normal turgor. Normal color with no rashes, no lesions, and no evidence of cellulitis. MS/ Extremity: Pulses equal, no cyanosis. Neurovascular intact. Full, normal range of motion. Psych: Awake, alert, with orientation to person, place and time. Behavior, mood, and affect are within normal limits. 12:10 Head/face: Noted is RIGHT FACE LOWER LOWER. 12:21 ECG was reviewed by the Attending Physician. [facility] [place] Vital Signs: 10:50 Pain 0/10; ml4 11:52 BP 139 / 71; Pulse 62; Resp 18; Temp 98.4; Pulse Ox 97% on R/A; os 11:54 Weight 81.65 kg (R); os 13:00 BP 145 / 86; Pulse 64; Resp 18; Pulse Ox 98% on R/A; os 14:00 BP 155 / 104; Pulse 65; Resp 17; Pulse Ox 99% on R/A; os 10:50 Pain Scale: Adult ml4 NIH Stroke Scale Scores: 11:50 NIHSS Score: 2 os [place] Score: 11:52 Eye Response: spontaneous(4). Motor Response: obeys commands(6). Verbal Response: os oriented(5). Total: 15. MDM: 10:29 Patient medically screened. diane 12:17 Data reviewed: vital signs, nurses notes, lab test result(s), EKG, radiologic studies. [facility] [place] Consideration of Admission/Observation Patient was admitted/placed on observation. Escalation of care including admission/observation considered. Management of patient was discussed with the following: Family Assistant: DR BERKOWITZ. I considered the following discharge prescriptions or medication management in the emergency department Medications were administered in the Emergency Department. See MAR. Independent interpretation of the following test(s) in the Emergency Department EKG: See my EKG interpretation above. Test considered but Not performed: MRI: NO MRI. Care significantly affected by the following chronic conditions: Hypertension, A FIB. Counseling: I had a detailed discussion with the patient and/or guardian regarding: the historical points, exam findings, and any diagnostic results supporting the discharge/admit diagnosis, the presence of at least one elevated blood pressure reading (>120/80) during this emergency department visit, lab results, radiology results, the need for further work-up and treatment in the hospital. 08/04 10:37 Order name: Basic Metabolic Panel; Complete Time: 12: [facility] [place] 08/04 10:37 Order name: CBC with Diff; Complete Time: 11:14 [facility] [place] 08/04 10:37 Order name: LFT's; Complete Time: 12: [facility] [place] 08/04 10:37 Order name: Magnesium; Complete Time: 12: [facility] [place] 08/04 10:37 Order name: NT PRO-BNP; Complete Time: 12: [facility] [place] 08/04 10:37 Order name: PT-INR; Complete Time: 11:14 [facility] [place] 08/04 10:37 Order name: Troponin HS; Complete Time: 12: [facility] [place] 08/04 10:37 Order name: CRP; Complete Time: 12:09 [facility] [place] 08/04 10:37 Order name: Lipid Profile; Complete Time: 12:09 [facility] [place] 08/04 10:37 Order name: TSH; Complete Time: 12:09 [facility] 08/04 11:17 Order name: CREATININE WHOLE BLOOD; Complete Time: 12:09 [facility] 08/04 16:23 Order name: Lipid Profile [facility] 08/04 16:23 Order name: Lipid Profile [facility] 08/04 18:08 Order name: Ptt, Activated os 08/04 10:37 Order name: XRAY Chest (1 view); Complete Time: 12:09 [facility] 08/04 10:37 Order name: CT Stroke Brain w/o Contrast; Complete Time: 11:14 [facility] 08/04 10:37 Order name: CT Head Angio; Complete Time: 11:14 [facility] 08/04 10:37 Order name: CT Neck Angio; Complete Time: 11:14 [facility] 08/04 10:56 Order name: Echo w/ Doppler [facility] [place] 08/04 16:34 Order name: Stroke Protocol [facility] 08/04 10:37 Order name: EKG; Complete Time: 10:37 [facility] [place] 08/04 16:41 Order name: Diet - Advance as Tolerated [facility] 08/04 10:37 Order name: Cardiac monitoring; Complete Time: 12:25 [facility] [place] 08/04 10:37 Order name: EKG - Nurse/Tech; Complete Time: 12:25 [facility] 08/04 10:37 Order name: IV Saline Lock; Complete Time: 10:49 [facility] 08/04 10:37 Order name: Labs collected and sent; Complete Time: 10:49 [facility] 08/04 10:37 Order name: O2 Per Protocol; Complete Time: 10:49 [facility] [place] 08/04 10:37 Order name: O2 Sat Monitoring; Complete Time: 10:49 [facility] EC:21 Rate is 60 beats/min. Rhythm is regular. QRS [place] is Normal. PA interval is normal. QRS diane interval is normal. QT interval is normal. No Q waves. T waves are Normal. No ST changes noted. Clinical impression: Abnormal EKG without significant change and No evidence of ischemia. Interpreted by me. Reviewed by me. Administered Medications: 11:49 Drug: Aspirin PO Chewable Tablet 162 mg Route: PO; os 11:53 Drug: foLIC Acid IVPB 1 mg Route: IVPB; Site: right antecubital; os 12:17 Follow up: Response: No adverse reaction os 11:53 Drug: NS 0.9% IV 1000 ml Route: IV; Rate: 1 bolus; Site: right antecubital; os 12:17 Follow up: Response: No adverse reaction os 11:59 Drug: Heparin (OH-Bolus No thrombolytic) - HEParin IVP 60 units/kg {Co-Signature: ph os (Kathleen Benites RN).} Route: IVP; Site: right antecubital; 12:17 Follow up: Response: No adverse reaction os 12:01 Drug: Heparin (OH Drip) - (D5W IV 500 ml, [place] [address] units) 12 units/kg/hr os {Co-Signature: ph (Kathleen Benites RN).} Route: IV; Rate: calculated rate; Site: right antecubital; 13:13 Drug: Clopidogrel PO 75 mg Route: PO; os 14:34 Follow up: Response: No adverse reaction os Point of Care Testing: Blood Glucose: 11:54 Blood Glucose: 106 mg/dL; os Ranges: Critical Glucose Levels:Adult <50 mg/dl or >400 mg/dl <40 mg/dl or >180 mg/dl Disposition Summary: 08/04/22 12:21 Hospitalization Ordered Hospitalization Status: Inpatient Admission diane Location: Telemetry/[facility] (Inpatient) diane Condition: Fair diane Problem: new diane Symptoms: have improved diane Bed/Room Type: Standard diane Provider: Willis Varner(08/04/22 12:58) diane Room Assignment: [facility](08/04/22 17:20) Diagnosis - Aphasia diane - Aphasia following cerebral infarction diane - Cerebral infarction, unspecified diane - Presence of cardiac pacemaker diane - Chronic atrial fibrillation - HISTORY OF diane Forms: - Medication Reconciliation Form daine - SBAR form diane NIH Stroke Scale - NIH Stroke Score Date: 08/04/2022 Time: 11:50 Total Score = 2 10. Dysarthria (speech clarity - read or repeat words) - 1(Mild to Moderate) 11. Extinction and Inattention (visual/tactile/auditory/spatial/personal) - 0(No abnormality) 1a. Level of Consciousness (LOC) - 0(Alert) 1b. Level of Consciousness (LOC) (Month \T\ Age) - 0(Both) 1c. LOC Commands (Open \T\ Closes Eyes/Tone Regulator) - 0(Both) 2. Best Gaze (Lateral Gaze Paresis) - 0(Normal) 3. Visual Field Loss - 0(No visual loss) 4. Facial Palsy - 1(Minor Paralysis) 5a. Left Arm: Motor (10-second hold) - 0(No drift) 5b. Right Arm: Motor (10-second hold) - 0(No drift) 6a. Left Leg: Motor (5-second hold - always test supine) - 0(No drift) 6b. Right Leg: Motor (5-second hold - always test supine) - 0(No drift) 7. Limb Ataxia (finger/nose \T\ heel/beaver - test with eyes open) - 0(Absent) 8. Sensory Loss (pinprick arms/legs/face) - 0(Normal) 9. Best Language: Aphasia (description/naming/reading) - 0(No aphasia) Initials: os Signatures: Dispatcher [employer] Astrid Loyd, Juan Lopez RN, MD MD cha Sotiri, Orest, RN RN os Jose G, RNIII, Vipul, RN RN ml4 Kathleen Benites RN ph Corrections: (The following items were deleted from the chart) 10:55 10:55 PMHx: Atrial Fib; ml4 ml4 10:55 10:55 PMHx: High Cholesterol; ml4 ml4 10:58 10:37 MR STROKE PROTOCOL+MRI.RAD.BRZ ordered. EDMS EDMS 11:54 11:48 EC Echo M-Mode 2D Only+ECHO.RAD.BRZ ordered. EDMS EDMS 12:24 12:21 Sylvia Hilton diane diane 12:58 12:24 Atul Crespo [facility] diane 16:41 16:23 Full Liquid ordered. EDMS EDMS 17:20 12:21 diane dw
[2022-08-04] MEDS ORDERED: CLOPIDOGREL 75 MG TABLET ONE (13:00)
--- NOTE | 2022-08-04 14:34 | ECHO ---
HEIGHT: 5 ft 100 in WEIGHT: 181 lb oz DATE OF STUDY: 08/04/[address]: Juan Gamboa MD 2-DIMENSIONAL: YES M.MODE: YES DOPPLER: YES COLOR FLOW: YES TDS: YES PORTABLE: NO DEFINITY: NO BUBBLE STUDY: NO DIAGNOSIS: ATRIAL FIBRILLATION/STROKE CARDIAC HISTORY: CATHERIZATION: SURGERY: PROSTHETIC VALVE: PACEMAKER: MEASUREMENTS (cm) DIASTOLIC (NORMALS) SYSTOLIC (NORMALS) IVSd 1.0 (0.6-1.2) LA Diam 3.6 (1.9-4.0) LVEF 67% LVIDd 4.5 (3.5-5.7) LVIDs 2.8 (2.0-3.5) %FS 37% LVPWd 1.1 (0.6-1.2) Ao Diam 2.6 (2.0-3.7) 2 DIMENSIONAL ASSESSMENT: RIGHT ATRIUM: NORMAL LEFT ATRIUM: NORMAL RIGHT VENTRICLE: NORMAL LEFT VENTRICLE: NORMAL TRICUSPID VALVE: MILD TRICUSPID REGURGITATION MITRAL VALVE: MILD MITRAL REGURGITATION PULMONIC VALVE: MILD PULMONIC INSUFFICIENCY AORTIC VALVE: MILD AORTIC INSUFFICIENCY PERICARDIAL EFFUSION: NONE AORTIC ROOT: NORMAL LEFT VENTRICULAR WALL MOTION: NORMAL. DOPPLER/COLOR FLOW: SEE BELOW. COMMENTS: NORMAL LEFT VENTRICULAR EJECTION FRACTION 60-65% WITH NORMAL WALL MOTION. MILD MITRAL REGURGITATION/ AORTIC INSUFFICIENCY MILD TRICUSPID REGURGITATION/ PULMONIC INSUFFICIENCY TECHNOLOGIST: ALFREDO MARKS
--- NOTE | 2022-08-04 16:38 | P.HP ---
Certification for Inpatient With expected LOS: >2 Midnights Practitioner: I am a practitioner with admitting privileges, knowledge of patient current condition, hospital course, and medical plan of care. Services: Services provided to patient in accordance with Admission requirements found in Title 42 Section 412.3 of the Code of Federal Regulations Patient History Date of Service: 08/04/22 Reason for admission: expressive dysphasia History of Present Illness: Age 86 AW expressive dysphasia this is started at about 5:30 in the morning he woke up with the slurred speech and there is been no progression denies any weakness of his extremities currently he was moving from the house to an apartment was very exhausted he does have a history of hypertension and atrial fibrillation in addition to a pacemaker smoking long time ago history of coronary artery disease Allergies Tape Allergy (Uncoded 02/12/14 16:13) Unknown Home Medications: Amlodipine Besylate 5 mg PO DAILY 12/02/14 Losartan Potassium [Cozaar*] 50 mg PO BID 12/02/14 Simvastatin [Zocor*] 10 mg PO BEDTIME 12/02/14 levoFLOXacin [Levaquin] 500 mg PO DAILY #5 tab 01/07/15 - Past Medical/Surgical History Diabetic: No -: HTN -: AFIB -: Syncope -: Cholecystectomy -: Stents placed (20 yrs ago) -: Pacemaker - Social History Alcohol use: Yes CD- Drugs: No Caffeine use: Yes Review of Systems 10-point ROS is otherwise unremarkable Physical Examination - Vital Signs Temperature: 98.4 F Blood Pressure: 139/71 Pulse: 62 Respirations: 18 - Physical Exam General: Alert (Continue), In no apparent distress, Oriented x3 HEENT: Atraumatic Neck: Supple Respiratory: Clear to auscultation bilaterally, Normal air movement Cardiovascular: No edema, Normal pulses, Regular rate/rhythm Gastrointestinal: Normal bowel sounds, Hypoactive, Soft and benign Integumentary: No rashes, No breakdown Neurological: Normal strength at 5/5 x4 extr, Sensation intact, Cranial nerves 3-12 intact, Normal reflexes 2+, Abnormal speech External genitalia: No edema, No lesions - Studies Laboratory Data (last 24 hrs) 08/04/22 10:45: PT 12.2, INR 1.11 08/04/22 10:45: WBC 8.50, Hgb 11.5 L, Hct 33.5 L, Plt Count 281 08/04/22 10:45: Sodium 139, Potassium 3.9, BUN 26 H, Creatinine 1.26, Glucose 106, Magnesium 2.3, Total Bilirubin 0.7, AST 15, ALT 21, Alkaline Phosphatase 76, Triglycerides 74, Cholesterol 84, HDL Cholesterol 33 L, Cholesterol/HDL Ratio 2.55 Assessment and Plan - Problems (Diagnosis) (1) Stroke Current Visit: Yes Status: Acute Plan: Patient is 86 years of age admitted with sudden onset of expressive dysphasia at 5:30 in the morning on August 04 is currently stable otherwise she is very alert responsive cooperative there is no other cranial nerve deficit from a slight weakness of his left side of his face is slight facial asymmetry weakness of his extremities good strength no drift Labs otherwise grossly normal Patient's extensive work-up so far is negative he has had CTs of his brain and his neck currently stable we will admit restart his blood pressure pills statins antiplatelet agent continue to observe MRI would be a contraindication due to a pacemaker Qualifiers: CVA mechanism: unspecified Qualified Code(s): I63.9 - Cerebral infarction, unspecified - Advance Directives Does patient have a Living Will: No Does patient have a Durable POA for Healthcare: No
[2022-08-04] MEDS ORDERED: NA CHLORIDE 0.9% 1,000 ML IV SCH (17:00)
[2022-08-04 20:07] VITALS: O2SAT 99
[2022-08-04] MEDS ORDERED: ATORVASTATIN 10 MG TAB PO SCH (21:00)
[2022-08-04] MEDS: AMLODIPINE 5 MG TAB PO SCH (21:33)
[2022-08-04 23:18] VITALS: BMI 25.8
[2022-08-05] MEDS ORDERED: HYDRALAZINE HCL 20 MG/ML VIAL IV PRN (05:13)
[2022-08-05] MEDS: AMLODIPINE 5 MG TAB PO SCH (08:14)
[2022-08-05 08:23] VITALS: BP 139/68; TEMP 97.3
[2022-08-05] MEDS ORDERED: hydroCHLOROthiazide 12.5 MG CAP PO SCH (09:00)
[2022-08-05] MEDS ORDERED: CLOPIDOGREL 75 MG TABLET PO SCH (09:00)
[2022-08-05] MEDS ORDERED: LOSARTAN POTASSIUM 50 MG TABLET PO SCH (09:00)
[2022-08-05] MEDS ORDERED: ASPIRIN EC 81 MG TAB PO SCH (09:00)
[2022-08-05] MEDS ORDERED: GABAPENTIN 300 MG CAP PO SCH (09:00)
--- NOTE | 2022-08-05 09:56 | P.DS ---
Admission Date: 08/04/22 Discharge Date: 08/05/22 Disposition: ROUTINE DISCHARGE Discharge Condition: FAIR Reason for Admission: expressive dysphasia - Problems (1) Stroke Current Visit: Yes Status: Acute Qualifiers: CVA mechanism: unspecified Qualified Code(s): I63.9 - Cerebral infarction, unspecified Brief History of Present Illness: Age 86 AW expressive dysphasia this is started at about 5:30 in the morning he woke up with the slurred speech and there is been no progression denies any w eakness of his extremities currently he was moving from the house to an apartment was very exhausted he does have a history of hypertension and atrial fibrillation in addition to a pacemaker smoking long time ago history of coronary artery disease Hospital Course: Patient is 86 years of age admitted with mild expressive dysphagia he did well during the course of his stay at experience any worsening in fact his speech had improved denied any weakness of his extremities no other cranial nerve deficit was started on Plavix and aspirin to be discharged home follow-up with his primary care physician and possibly a neurologist of the head including an angiogram did not show any evidence of stroke or thrombosis MRI not done as patient has a pacemaker so has a watchman's procedure Vital Signs/Physical Exam: Temp Pulse Resp BP Pulse Ox 97.3 F 60 16 139/68 100 08/05/22 08:00 08/05/22 08:00 08/05/22 08:00 08/05/22 08:00 08/05/22 08:00 Laboratory Data at Discharge: WBC 8.50 thou/uL (4.3-10.9) 08/04/22 10:45 Hgb 11.5 g/dL (13.6-17.9) L 08/04/22 10:45 Hct 33.5 % (39.6-49.0) L 08/04/22 10:45 Plt Count 281 thou/uL (152-406) 08/04/22 10:45 PT 12.2 SECONDS (9.5-12.5) 08/04/22 10:45 INR 1.11 08/04/22 10:45 APTT 48.2 SECONDS (24.3-36.9) H 08/04/22 20:01 Sodium 139 mEq/L (136-145) 08/04/22 10:45 Potassium 3.9 mEq/L (3.5-5.1) 08/04/22 10:45 BUN 26 mg/dL (7-18) H 08/04/22 10:45 Creatinine 1.26 mg/dL (0.70-1.30) 08/04/22 10:45 Glucose 106 mg/dL (74-106) 08/04/22 10:45 Magnesium 2.3 mg/dL (1.6-2.4) 08/04/22 10:45 Total Bilirubin 0.7 mg/dL (0.2-1.0) 08/04/22 10:45 AST 15 U/L (15-37) 08/04/22 10:45 ALT 21 U/L (16-61) 08/04/22 10:45 Alkaline Phosphatase 76 U/L (45-117) 08/04/22 10:45 Triglycerides 108 mg/dL (<150) 08/05/22 02:31 Cholesterol 87 mg/dL (<200) 08/05/22 02:31 HDL Cholesterol 33 mg/dL (40-60) L 08/05/22 02:31 Cholesterol/HDL Ratio 2.64 08/05/22 02:31 Home Medications: Amlodipine Besylate 5 mg PO DAILY 12/02/14 Losartan Potassium [Cozaar*] 50 mg PO BID 12/02/14 Simvastatin [Zocor*] 10 mg PO BEDTIME 12/02/14 Finasteride [Proscar*] 5 mg PO DAILY 08/04/22 Gabapentin 300 mg PO DAILY 08/04/22 hydroCHLOROthiazide [Hydrochlorothiazide] 12.5 mg PO DAILY 08/04/22 Clopidogrel Bisulfate [Plavix*] 75 mg PO DAILY 30 Days #30 tab 08/05/22 New Medications: Clopidogrel Bisulfate [Plavix*] 75 mg PO DAILY 30 Days #30 tab Physician Discharge Instructions: Patient to take 81 mg of baby aspirin daily which has been faxed to the pharmacy follow-up with Dr. Carroll in 1 to 2 weeks Diet: Regular Activity: Ad wenceslao Followup: Gianni Carroll MD [Primary Care Provider] -
--- NOTE | 2022-08-07 17:56 | EKG ---
Test Date: 2022-08-04 Test Time: 11:07:23 Automatic Operator: OS MEASUREMENT RESULTS: Intervals: Rate: 62 OR: QRSD: 184 QT: 516 QTc: 523 [place]: P: OR: QRS: -77 T: 86 INTERPRETIVE STATEMENTS: Ventricular-paced rhythm with occasional premature ventricular complexes Abnormal ECG Compared to ECG 01/07/2015 06:36:22 Ventricular premature complex(es) now present Sinus rhythm no longer present Short OR interval no longer present Left-axis deviation no longer present Right bundle-branch block no longer present Myocardial infarct finding no longer present Electronically Signed On 08-07-22 17:51:34 CDT by Rikki Goel
--- NOTE | 2022-08-09 19:19 | EKG ---
Test Date: 2022-08-04 Test Time: 11:07:51 Acetylene Plant Operator: OS MEASUREMENT RESULTS: Intervals: Rate: 60 [place]: QRSD: 174 QT: 510 QTc: 510 [place]: P: [place]: QRS: -77 T: 86 INTERPRETIVE STATEMENTS: Ventricular-paced rhythm Abnormal ECG Compared to ECG 08/04/2022 11:07:23 Ventricular premature complex(es) no longer present Electronically Signed On 08-09-22 19:13:09 CDT by Rikki Goel
== END 2022-08-05 12:49 | disposition home or self-care (01) | DRG 92 ==
LOC: ER 10:27 → ERHOLD 16:16 → 2ND 18:13
PROVIDERS: ADMIT Internal Medicine Sleep Medicine; ATTEND Internal Medicine Sleep Medicine
DX: R47.02 Dysphasia (principal); I48.19 Other persistent atrial fibrillation; I10 Essential (primary) hypertension; I25.10 Atherosclerotic heart disease of native coronary artery without angina pectoris; Z95.0 Presence of cardiac pacemaker; Z87.891 Personal history of nicotine dependence; Z91.048 Other nonmedicinal substance allergy status; Z79.899 Other long term (current) drug therapy; Z90.49 Acquired absence of other specified parts of digestive tract
CPT/HCPCS: 36415; 70450; 70496; 70498; 71045; 80048; 80061; 80076; 82565; 82947; 83735; 83880; 84443; 84484; 85025; 85610; 85730; 86140; 93005; 93306; 96374; 96375; 99285; J0360; J1644; J7030; Q9967

== ENCOUNTER 2023-10-30 11:30 | Day surgery (SDC) | payer OTHER ==
[2023-10-26 10:02] LABS: Absolute Eosinophils 0.1 K/uL (0-0.5); Absolute Lymphocytes (CBC) 2.1 K/uL (0.7-4.9); Absolute Monocytes 0.4 K/uL (0.1-1.3); Absolute Neutrophil 4.5 K/uL (1.8-8.0); Basophils % 0.3 % (0-1.3); Eosinophils % 1.8 % (0-4.4); Hematocrit 33.9 % (39.6-49.0); Hemoglobin 11.7 g/dL (13.6-17.9); MCH 32.7 pg (27.0-35.0); MCHC 34.6 g/dL (32.0-36.0); MCV 94.4 fL (80-100); MPV 7.2 fL (7.6-11.3); Monocytes % 5.1 % (3.3-12.3); Neutrophils % 62.8 % (41.7-73.7); Nucleated Red Blood Cells % 0.1 % (0-0); Platelets 308 thou/uL (152-406); RBC Red Blood Cell Count 3.59 M/uL (4.33-5.43); Red Cell Distribution Width 15.1 % (12.1-15.2)
[2023-10-26 10:08] LABS: PT Prothrombin Time 11.4 SECONDS (9.4-12.5); PTT, Activated Partial Thromb 33.6 SECONDS (24.3-36.9); Protime INR 1.02
[2023-10-26 10:13] LABS: Anion Gap 10.2 mEq/L (5.0-15.0); Potassium 4.2 mEq/L (3.5-5.1)
--- NOTE | 2023-10-26 14:05 | EKG ---
Test Date: 2023-10-26 Test Time: 09:45:18 Manager [employer]: AYDEN MEASUREMENT RESULTS: Intervals: Rate: 65 [place]: QRSD: 132 QT: 462 QTc: 480 [place]: P: [place]: QRS: 241 T: -59 INTERPRETIVE STATEMENTS: Demand pacemaker, interpretation is based on intrinsic rhythm Undetermined rhythm Right bundle branch block T wave abnormality, consider inferolateral ischemia Abnormal ECG Compared to ECG 07/04/2023 22:49:16 Right bundle-branch block now present T-wave abnormality now present Possible ischemia now present Electronically Signed On 10-26-23 14:04:23 CDT by Rikki Goel
[2023-10-30] MEDS ORDERED: NA CHLORIDE 0.9% 500 ML ONE (11:33)
[2023-10-30] MEDS ORDERED: HEPA 1000U/500MLS 2,000 UNIT/1,000 ML BAG IV ONE (14:06)
[2023-10-30] MEDS ORDERED: HEPARIN 10,000 UNIT/10 ML VIAL IV ONE (14:06)
[2023-10-30] MEDS ORDERED: VERAPAMIL HCL 10 MG/4 ML VIAL IV ONE (14:06)
[2023-10-30] MEDS ORDERED: MIDAZOLAM HCL 2 MG/2 ML INJ ONE (14:06)
[2023-10-30] MEDS ORDERED: LIDOCAINE 1% 20 ML MDV ONE (14:06)
[2023-10-30] MEDS ORDERED: ATROPINE SULF 1 MG/10 ML SYR IV ONE (14:06)
[2023-10-30] MEDS ORDERED: HEPARIN 5000 UNIT/ML 1 ML VIAL ONE (14:07)
[2023-10-30] MEDS ORDERED: CLOPIDOGREL 75 MG TABLET ONE (14:07)
[2023-10-30] MEDS ORDERED: ASPIRIN 325 MG TAB ONE (14:07)
[2023-10-30] MEDS ORDERED: TICAGRELOR 90 MG TABLET PO ONE (14:07)
[2023-10-30] MEDS ORDERED: FENTANYL CITR 100 MCG/2 ML ONE (14:07)
--- NOTE | 2023-10-30 16:42 | OP ---
Date of Procedure: 10/30/2023 Surgeon: FRANCESCA LAY Procedures Performed: 1.Selective coronary angiogram. 2.Left heart catheterization. Indication: Chest pain with abnormal stress test suggestive of unstable angina. Access: Right radial artery 6-Syrian closed with TR band. Complications: None. Bleeding: Less than 50 mL. Anesthesia: Total sedation time was 45 minutes, I used fentanyl and Versed. Description Of Procedure: After risks, benefits, and alternatives were explained, the patient agreed to procedure and signed informed consent. The patient was brought into cardiac catheterization [facility], prepped and draped in the usual sterile fashion. Then, I accessed right radial artery using pediatric micropuncture kit, placed a 6-Syrian Slender sheath and took 5-Syrian Crabtree 4.0 catheter in to aortic root, crossed the aortic valve, measured the LVEDP. Pullback did not record any gradient, then I engaged the RCA, took standard views and then exchanged for a 6-Syrian JR4 catheter, engaged t he left main, took standard views and then removed the catheter and the sheath and placed TR band wit h good hemostasis. Findings: 1.Left main; distal, there is severe heavy calcified stenosis about 80%, heavily calcified extends t o the ostial LAD and the ostial left circ. 2.LAD; ostial 80%, mid 40%, mid to distal multiple lesions ranging between 30% and 50%. Diagonal br anch is also with luminal irregularities. 3.Left circumflex; large size vessel with ostial 90% stenosis, heavily calcified. Then there is a s tent that is patent with 10% ISR and then focally there is about 30% stenosis of the OM branch. 4.RCA; very large and dominant, proximal 30%, mid long segment, heavily calcified, 70% stenosis, dis sharri 60% stenosis, and then the RCA gives collaterals to the LAD. 5.LVEDP is borderline 12 mmHg. Conclusion: Severe multivessel coronary artery disease including the left main heavily calcified. Recommendations: CABG evaluation. If he gets turned down due to his age, or the risk for surgery, t hen he will need a complex PCI of left main to LAD bifurcating to left circumflex with atherectomy, I mpella assisted and then to fix the RCA at a later time. Plan: He will see me tomorrow in the office and we will have him see CT Surgery this week and then a ccording to the CT Surgery if bypass is not feasible, we will plan for PCI next week with Impella. /MARIA EUGENIA Voice ID: [id number] Report ID: [id number]
[2023-10-30 17:35] VITALS: BP 147/75; O2SAT 98
== END 2023-10-30 17:34 | disposition home or self-care (01) ==
LOC: CCL 11:30
PROVIDERS: ATTEND Internal Medicine
DX: I25.110 Atherosclerotic heart disease of native coronary artery with unstable angina pectoris (principal); T82.855A Stenosis of coronary artery stent, initial encounter; I35.1 Nonrheumatic aortic (valve) insufficiency; I48.0 Paroxysmal atrial fibrillation; I10 Essential (primary) hypertension; E78.5 Hyperlipidemia, unspecified; Z95.5 Presence of coronary angioplasty implant and graft; Z87.891 Personal history of nicotine dependence; Z79.02 Long term (current) use of antithrombotics/antiplatelets; Z79.899 Other long term (current) drug therapy; Z91.09 Other allergy status, other than to drugs and biological substances
CPT/HCPCS: 36415; 76937; 80048; 85025; 85610; 85730; 93005; 93458; 99152; 99153; C1893; J0461; J1644; J2001; J2250; J3010; J7040; Q9966

== ENCOUNTER 2024-03-12 11:04 | Emergency (ER) | payer OTHER ==
--- OUTSIDE RECORDS SUMMARY | 2024-03-12 11:07 | XMS REPORT | Continuity of Care Document ---
Author Name Unknown Address [address] 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 Name Role Phone BHARGAV MADRID Attending Clinician Ryan Rios Attending Clinician Bhargav Palacios MD Attending Clinician [phone] Only, Adc Test Attending Clinician Unavailable Luis Armando Torres MD Attending Clinician [phone] LUIS ARMANDO TORRES Attending Clinician Stalin mix Pob, Adc Lab Main Attending Clinician Stalin mix Doctor Unassigned, [place] Attending Clinician U Rikki Phillips Attending Clinician Unavailable BHARGAV MADRID Admitting Clinician Ryan Rios Admitting Clinician Bhargav Palacios MD Admitting Clinician [phone] Physician, No Primary or Family Admitting Clinic tigre Unavailable Payers Payer Name Policy Type Policy Number Effective Date Expirati on Date Source MEDICARE PART A \T\ [id number] 2000 00:00:00 [facility] [id number] 2013 00:00:00 Problems Condition Name Condition Details Condition Category Status Onset Date Resolution Date Last Treatment Date Treating Clinician Comments Source No known active problems No known active problems Disease [facility] Allergies, Adverse Reactions, Alerts Allergy Name Allergy Type Status Severity Reaction(s) Onset Date Inactive Date Treating Clinician Comments Source ADHESIVE TAPE-JOSEPH ICONES DRUG Active High Other-Cmnt 06-08 00:00: 00 [facility] Adhesive Tape-Joseph icones Propensi ty to adverse reaction s Active Other - See comments 06-08 00:00: 00 Burn - like second degree [facility] TAPE DA Active U SKIN BURN 03-16 00:00: 00 [facility] adhesive tape DA Active U 03-16 00:00: 00 [facility] adhesive tape DA Active U SKIN BURN 03-16 00:00: 00 [facility] No Known Allergie s DA Active U 02-23 00:00: 00 [facility] No Known Allergie s DA Active U 02-23 00:00: 00 [facility] NO KNOWN ALLERGIE S Drug Class Active [facility] Social History Social Habit Start Date Stop Date Quantity Comments Source Exposure to SARS-CoV-2 (event) Not sure [facility] History of tobacco use Smoker [facility] Tobacco use and exposure 2020-06-22 00:00:00 2020-06-22 00:00:00 Never used [facility] Alcohol intake 2020-06-22 00:00:00 2020-06-22 00:00:00 Current drinker of alcohol (finding) [facility] Alcohol Comment 2020-06-09 00:00:00 2020-06-09 00:00:00 seldom [facility] Sex Assigned At 1935 00:00:00 1935 00:00:00 [facility] Smoking Status Start Date Stop Date Source Unknown if ever smoked [facility] Former smoker 2020-06-22 00:00:00 2020-06-22 00:00:00 [facility] Medications Ordered Medication Name Filled Medication Name Start Date Stop Date Current Medication? Ordering Clinician Indication Dosage Frequency Signature (SIG) Comments Components Source finasteride 5 mg tablet 06-23 16:34: 21 Yes 5mg Take 5 mg by mouth daily. [facility] losartan 100 mg tablet 06-23 16:34: 21 Yes 100mg Take 100 mg by mouth daily. [facility] atorvastati n 40 mg tablet 06-23 16:34: 21 Yes 40mg Take 40 mg by mouth at bedtime. [facility] gabapentin 100 mg capsule 06-23 16:34: 21 Yes 100mg Take 100 mg by mouth daily. [facility] clopidogreL 75 mg tablet 06-23 16:34: 21 Yes 75mg Take 75 mg by mouth daily. [facility] amLODIPine 5 mg tablet 06-23 16:34: 21 Yes 5mg Take 5 mg by mouth daily. [facility] hydroCHLORO thiazide 12.5 mg capsule 06-23 16:34: 21 Yes 12.5mg Take 12.5 mg by mouth daily. [facility] aspirin (TESSA LOW STRENGTH ORAL) 06-23 16:34: 21 Yes 81mg Take 81 mg by mouth. [facility] sodium chloride (NS) injection 06-23 15:55: 00 Yes PRN, Starting Sun06/23/20 at 1055, Until Discontinu ed, Routine, Intra-op [facility] water for irrigation irrigation solution 06-23 15:54: 00 Yes PRN, Starting Sun06/23/20 at 1054, Until Discontinu ed, Routine, Intra-op [facility] neomycin-po lymyxin-dex amethasone (MAXITROL) 3.5 mg/g-10,000 unit/g-0.1 % ophthalmic ointment 06-23 15:54: 00 Yes PRN, Starting Sun06/23/20 at 1054, Until Discontinu ed, Routine, Intra-op [facility] EPINEPHrine 1:1,000 (1 mg/mL) (ADRENALIN) injection 06-23 15:54: 00 Yes PRN, Starting Sun06/23/20 at 1054, Until Discontinu ed, Routine, Intra-op [facility] DUOVISC (DUOVISC VISCO ELASTIC) 3 %-4 %(0.5 mL) 1 % (0.55 mL) intraocular injection 06-23 15:54: 00 Yes PRN, Starting Sun06/23/20 at 1054, Until Discontinu ed, Routine, Intra-op [facility] dexamethaso ne (DECADRON PHOSPHATE) injection 06-23 15:53: 00 Yes PRN, Starting Sun06/23/20 at 1053, Until Discontinu ed, Routine, Intra-op [facility] ceFAZolin (ANCEF) injection 06-23 15:53: 00 Yes PRN, Starting Sun06/23/20 at 1053, Until Discontinu ed, RUFUS, Intra-op [facility] carbachoL (MIOSTAT) 0.01 % intraocular injection 06-23 15:53: 00 Yes PRN, Starting Sun06/23/20 at 1053, Until Discontinu ed, Routine, Intra-op [facility] balanced salt irrig soln comb1 (BSS PLUS) ophthalmic solution 500 mL bag 06-23 15:53: 00 Yes PRN, Starting Sun06/23/20 at 1053, Until Discontinu ed, Routine, Intra-op [facility] Hyaluronida se, Human Recomb. (HYLENEX) injection 06-23 15:35: 00 Yes PRN, Starting Sun06/23/20 at 1035, Until Discontinu ed, Routine, Intra-op [facility] eye block syringe 11 mL 06-23 15:35: 00 Yes PRN, Starting Sun06/23/20 at 1035, Until Discontinu ed, Intra-op [facility] tetracaine (PONTOCAINE ) 0.5 % ophthalmic drops 06-23 15:26: 00 Yes PRN, Starting Sun06/23/20 at 1026, Until Discontinu ed, Routine, Intra-op [facility] mydriatic #5 ophthalmic solution 0.5 mL syringe 06-23 14:00: 00 06-23 13:57 :00 No .5mL 0.5 mL, Left Eye, ONCE, 1 dose, Sun06/23/20 at 0900, Routine [facility] lactated ringers IV infusion 1,000 mL 06-23 14:00: 00 06-23 13:57 :00 No 1000mL at 42 mL/hr, 1,000 mL, IV Infusion, ONCE, 1 dose, Sun06/23/20 at 0900, Routine, DSU Pre-op [facility] finasteride 5 mg tablet 06-09 17:43: 23 Yes 5mg Take 5 mg by mouth daily. [facility] losartan 100 mg tablet 06-09 17:43: 23 Yes 100mg Take 100 mg by mouth daily. [facility] atorvastati n 40 mg tablet 06-09 17:43: 23 Yes 40mg Take 40 mg by mouth at bedtime. [facility] gabapentin 100 mg capsule 06-09 17:43: 23 Yes 100mg Take 100 mg by mouth daily. [facility] clopidogreL 75 mg tablet 06-09 17:43: 23 Yes 75mg Take 75 mg by mouth daily. [facility] amLODIPine 5 mg tablet 06-09 17:43: 23 Yes 5mg Take 5 mg by mouth daily. [facility] hydroCHLORO thiazide 12.5 mg capsule 06-09 17:43: 23 Yes 12.5mg Take 12.5 mg by mouth daily. [facility] aspirin (TESSA LOW STRENGTH ORAL) 06-09 17:43: 23 Yes 81mg Take 81 mg by mouth. [facility] tetracaine (PONTOCAINE ) 0.5 % ophthalmic drops 06-09 16:37: 00 06-09 19:43 :23 No PRN, Starting Sun06/09/20 at 1137, Until Sun06/09/20 at 1443, Routine, Intra-op [facility] water for irrigation irrigation solution 06-09 16:13: 00 06-09 19:43 :23 No PRN, Starting Sun06/09/20 at 1113, Until Sun06/09/20 at 1443, Routine, Intra-op [facility] sodium chloride (NS) injection 06-09 16:13: 00 06-09 19:43 :23 No PRN, Starting Sun06/09/20 at 1113, Until Sun06/09/20 at 1443, Routine, Intra-op [facility] neomycin-po lymyxin-dex amethasone (MAXITROL) 3.5 mg/g-10,000 unit/g-0.1 % ophthalmic ointment 06-09 16:13: 00 06-09 19:43 :23 No PRN, Starting Sun06/09/20 at 1113, Until Sun06/09/20 at 1443, Routine, Intra-op [facility] Hyaluronida se, Human Recomb. (HYLENEX) injection 06-09 16:13: 00 06-09 19:43 :23 No PRN, Starting Sun06/09/20 at 1113, Until Sun06/09/20 at 1443, Routine, Intra-op [facility] eye block syringe 11 mL 06-09 16:11: 00 06-09 19:43 :23 No PRN, Starting Sun06/09/20 at 1111, Until Sun06/09/20 at 1443, Intra-op [facility] EPINEPHrine 1:1,000 (1 mg/mL) (ADRENALIN) injection 06-09 16:09: 00 06-09 19:43 :23 No PRN, Starting Sun06/09/20 at 1109, Until Sun06/09/20 at 1443, Routine, Intra-op [facility] DUOVISC (DUOVISC VISCO ELASTIC) 3 %-4 %(0.5 mL) 1 % (0.55 mL) intraocular injection 06-09 16:09: 00 06-09 19:43 :23 No PRN, Starting Sun06/09/20 at 1109, Until Sun06/09/20 at 1443, Routine, Intra-op [facility] dexamethaso ne (DECADRON PHOSPHATE) injection 06-09 16:09: 00 06-09 19:43 :23 No PRN, Starting Sun06/09/20 at 1109, Until Sun06/09/20 at 1443, Routine, Intra-op [facility] ceFAZolin (ANCEF) injection 06-09 16:09: 00 06-09 19:43 :23 No PRN, Starting Sun06/09/20 at 1109, Until Sun06/09/20 at 1443, RUFUS, Intra-op [facility] carbachoL (MIOSTAT) 0.01 % intraocular injection 06-09 16:08: 00 06-09 19:43 :23 No PRN, Starting Sun06/09/20 at 1108, Until Sun06/09/20 at 1443, Routine, Intra-op [facility] balanced salt irrig soln comb1 (BSS PLUS) ophthalmic solution 500 mL bag 06-09 16:07: 00 06-09 19:43 :23 No PRN, Starting Sun06/09/20 at 1107, Until Sun06/09/20 at 1443, Routine, Intra-op [facility] mydriatic #5 ophthalmic solution 0.5 mL syringe 06-09 14:45: 00 06-09 14:53 :00 No .5mL 0.5 mL, Right Eye, ONCE, 1 dose, Sun06/09/20 at 0945, Routine, DSU Pre-op [facility] Vital Signs Vital Name Observation Time Observation Value Comments S ource Systolic blood pressure 2020-06-23 16:17:00 140 mm[Hg] [facility] Diastolic blood pressure 2020-06-23 16:17:00 67 mm[Hg] [facility] Heart rate 2020-06-23 16:17:00 60 /min [facility] Oxygen saturation in Arterial blood by Pulse oximetry 2020-06-23 16:17:00 97 /min [facility] Respiratory rate 2020-06-23 16:12:00 20 /min [facility] Body temperature 2020-06-23 16:06:00 36.67 Nicole [facility] Body height 2020-06-22 18:45:00 177.8 cm [facility] Body weight 2020-06-22 18:45:00 85.73 kg [facility] BMI 2020-06-22 18:45:00 27.12 kg/m2 [facility] Systolic blood pressure 2020-06-23 13:44:00 147 mm[Hg] [facility] Diastolic blood pressure 2020-06-23 13:44:00 70 mm[Hg] [facility] Heart rate 2020-06-23 13:44:00 60 /min [facility] Body temperature 2020-06-23 13:44:00 36.5 Nicole [facility] Respiratory rate 2020-06-23 13:44:00 16 /min [facility] Oxygen saturation in Arterial blood by Pulse oximetry 2020-06-23 13:44:00 99 /min [facility] Body height 2020-06-22 18:45:00 177.8 cm [facility] Body weight 2020-06-22 18:45:00 85.73 kg [facility] BMI 2020-06-22 18:45:00 27.12 kg/m2 [facility] Systolic blood pressure 2020-06-09 17:29:00 140 mm[Hg] [facility] Diastolic blood pressure 2020-06-09 17:29:00 75 mm[Hg] [facility] Heart rate 2020-06-09 17:29:00 66 /min [facility] Respiratory rate 2020-06-09 17:29:00 16 /min [facility] Oxygen saturation in Arterial blood by Pulse oximetry 2020-06-09 17:29:00 98 /min [facility] Body temperature 2020-06-09 17:17:00 36.5 Nicole [facility] Body height 2020-06-07 20:11:00 178 cm [facility] Body weight 2020-06-07 20:11:00 82 kg [facility] BMI 2020-06-07 20:11:00 25.88 kg/m2 [facility] Systolic blood pressure 2020-06-09 14:46:00 141 mm[Hg] [facility] Diastolic blood pressure 2020-06-09 14:46:00 59 mm[Hg] [facility] Heart rate 2020-06-09 14:46:00 68 /min [facility] Body temperature 2020-06-09 14:46:00 36.78 Nicole [facility] Respiratory rate 2020-06-09 14:46:00 16 /min [facility] Oxygen saturation in Arterial blood by Pulse oximetry 2020-06-09 14:46:00 99 /min [facility] Body height 2020-06-07 20:11:00 178 cm [facility] Body weight 2020-06-07 20:11:00 82 kg [facility] BMI 2020-06-07 20:11:00 25.88 kg/m2 [facility] Procedures Procedure Date / Time Performed Performing Clinician Source PHACOEMULSIFICATION OF CATARACT WITH INTRAOCULAR LENS IMPLANT 2020-06-23 15:14:00 Bhargav Madrid [facility] NOTICE OF PRIVACY PRACTICES 2020-06-22 15:55:36 Doctor Unassigned, [place] [facility] NOTICE OF PRIVACY PRACTICES 2020-06-22 15:55:36 Doctor Unassigned, [place] [facility] CONSENT/REFUSAL FOR DIAGNOSI S AND TREATMENT 2020-06-22 15:53:50 Doctor Unassigned, [place] [facility] CONSENT/REFUSAL FOR DIAGNOSI S AND TREATMENT 2020-06-22 15:53:50 Doctor Unassigned, [place] [facility] ASSIGNMENT OF BENEFITS 2020-06-22 15:53:32 Doctor Unassigned, [place] [facility] ASSIGNMENT OF BENEFITS 2020-06-22 15:53:32 Doctor Unassigned, [place] [facility] PHACOEMULSIFICATION OF CATARACT WITH INTRAOCULAR LENS IMPLANT 2020-06-09 16:29:00 Bhargav Madrid [facility] ASSIGNMENT OF BENEFITS 2020-06-04 18:15:49 Doctor Unassigned, [place] [facility] [id number] 2020-03-18 00:00:00 RASSA [facility] Encounters Start Date/Time End Date/Time Encounter Type Admission Type Attending Clinicians Care Facility Care Department Encounter ID Source 2020-12-19 15:52:21 Outpatient R BHARGAV MADRID [facility] [id number] [facility] 2020-12-19 13:26:42 Outpatient BHARGAV VARNER [facility] [id number] [facility] 2023-11-14 05:29:00 2023-11-15 14:30:00 Inpatient Ryan Salgado [facility] INTE.02 [id number] 12 [facility] 2020-06-23 08:34:00 2020-06-23 11:32:00 Hospital Encounter Bhargav Madrid [facility] [id number] [facility] 2020-06-23 10:11:00 2020-06-23 10:52:00 Surgery Bhargav Madrid [facility] [id number] [facility] 2020-06-22 10:52:02 2020-06-22 11:07:02 Laboratory Only Only, Adc Test Bhargav Madrid [facility] [id number] [facility] 2020-06-22 10:45:00 2020-06-22 10:45:00 Outpatient R BHARGAV MADRID [facility] [id number] [facility] 2020-06-09 09:33:00 2020-06-09 12:43:00 Hospital Encounter Bhargav Madrid [facility] [id number] [id number] [facility] 2020-06-09 11:23:00 2020-06-09 12:03:00 Surgery Bhargav Madrid [facility] [id number] [id number] [id number] [facility] 2020-06-08 10:14:03 2020-06-08 10:29:03 Laboratory Only Only, Adc Test Luis Armando Torres [facility] [id number] [id number] [id number] [facility] 2020-06-08 10:15:00 2020-06-08 10:15:00 Outpatient R LUIS ARMANDO TORRES [facility] [id number] [facility] 2020-06-04 13:27:34 2020-06-04 13:42:34 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 Visit Pob, Adc Lab Main Bhargav Madrid [facility] Professio [facility] [id number] [id number] [id number] [id number] [facility] 2020-06-04 11:45:00 2020-06-04 11:45:00 Outpatient R BHARGAV MADRID [facility] [id number] [facility] 2020-06-04 00:00:00 2020-06-04 00:00:00 Orders Only Doctor Unassigned, [place] [facility] [id number] [id number] [id number] [id number] [facility] 2020-04-26 15:30:00 2020-04-28 00:06:05 [id number] 31 [facility] 2020-04-16 14:25:26 2020-04-16 14:25:26 [facility] [id number] 70 [facility] 2020-03-16 11:30:00 2020-03-24 11:51:[address] [facility] OUTD [id number] 02 [facility] 2019-10-08 00:00:00 2019-10-08 00:00:00 Outpatient [facility] [id number] [id number] [facility] Results Test Description Test Time Test Comments Results Result Co mments Source COMMENTS: To be done morning of Heart CathPROTHROMBIN [id number] 01:59:00* Test Item Value Reference Range Interpretation Comme nts PROTHROMBIN TIME PATIENT (test code = PTP) 13.8 SECONDS 9.3-12.9 H INTERNATIONAL NORMAL RATIO (test code = INR) 1.2 0.8-1.2 N TARGET INR BY INDICATION Indication INR1. Prophylaxis of venous thrombosis 2.0 - 3.0 (orthopedic surgery), Prophylaxis of venous thrombosis (other than high-risk surgery), Treatment of Deep Vein Thrombosis/Pulmonary Embolism, Prevention of systemic embolism - Tissue heart valves, Acute Myocardial Infarction (to prevent systemic embolism), Valvular heart disease, Atrial Fibrillation, Bileaflet mechanical valve in aortic position.2. Mechanical prosthetic valves (high risk), 2.5 - 3.5 Presence of Lupus Anticoagulant or Antiphospholipid Antibodies, Prevention of systemic embolism - Acute Myocardial Infarction (to prevent recurrent infarct). CBC W/AUTO [id number] 01:50:00* Test Item Value Reference Range Interpretation Comme nts WHITE BLOOD CELL (test code = WBC) 5.4 x10 3/uL 4.5-11.0 N RED BLOOD CELL (test code = RBC) 2.94 x10 6/uL 4.00-5.60 L HEMOGLOBIN (test code = HGB) 9.4 g/dL 12.5-16.9 L HEMATOCRIT (test code = HCT) 27.9 % 37.5-50.7 L MEAN CELL VOLUME (test code = MCV) 94.9 fL 81.0-99.0 N MEAN CELL HGB (test code = MCH) 32.0 pg 27.0-33.0 N MEAN CELL HGB CONCETRATION (test code = MCHC) 33.7 g/dL 33.0-37.0 N RED CELL DISTRIBUTION WIDTH CV (test code = RDW) 14.0 % 11.5-14.5 N RED CELL DISTRIBUTION WIDTH SD (test code = RDW-SD) 48.4 fL 37.0-54.0 N PLATELET COUNT (test code = PLT) 224 x10 3/uL 150-400 N MEAN PLATELET VOLUME (test c ode = MPV) 9.9 fL 7.0-9.0 H NEUTROPHIL % (test code = NT%) 64.2 % 56.0-77.0 N IMMATURE GRANULOCYTE % (test code = IG%) 0.2 % 0.0-2.0 N LYMPHOCYTE % (test code = LY%) 27.1 % 14.0-32.0 N MONOCYTE % (test code = MO%) 6.0 % 4.8-9.0 N EOSINOPHIL % (test code = EO%) 1.9 % 0.3-3.7 N BASOPHIL % (test code = BA%) 0.6 % 0.0-2.0 N NUCLEATED RBC % (test code = NRBC%) 0.0 % 0-0 N NEUTROPHIL # (test code = NT#) 3.45 x10 3/uL 2.0-7.6 N IMMATURE GRANULOCYTE # (test code = IG#) 0.01 x10 3/uL 0.00-0.03 N LYMPHOCYTE # (test code = LY#) 1.45 x10 3/uL 1.0-3.8 N MONOCYTE # (test code = MO#) 0.32 x10 3/uL 0.1-0.8 N EOSINOPHIL # (test code = EO#) 0.10 x10 3/uL 0.0-0.2 N BASOPHIL # (test code = BA#) 0.03 x10 3/uL 0.0-0.2 N NUCLEATED RBC # (test code = NRBC#) 0.00 x10 3/uL 0.0-0.1 N COMMENTS: To be done morning of Heart CathCOAGULATION TIME [id number] 12:48:00* Test Item Value Reference Range Interpretation Comme nts COAGULATION TIME ACTIVATED (test code = ACT) 313 SECONDS Performed by certified calender machine operator helper at [facility] COAGULATION TIME [id number] 12:30:00* Test Item Value Reference Range Interpretation Comme nts COAGULATION TIME ACTIVATED (test code = ACT) 337 SECONDS Performed by certified calender machine operator helper at [facility] COAGULATION TIME [id number] 12:17:00* Test Item Value Reference Range Interpretation Comme nts COAGULATION TIME ACTIVATED (test code = ACT) 236 SECONDS Performed by certified calender machine operator helper at [facility] COAGULATION TIME [id number] 11:55:00* Test Item Value Reference Range Interpretation Comme nts COAGULATION TIME ACTIVATED (test code = ACT) 324 SECONDS Performed by certified calender machine operator helper at [facility] COAGULATION TIME [id number] 11:41:00* Test Item Value Reference Range Interpretation Comme nts COAGULATION TIME ACTIVATED (test code = ACT) 252 SECONDS Performed by certified calender machine operator helper at [facility] COAGULATION TIME [id number] 11:28:00* Test Item Value Reference Range Interpretation Comme nts COAGULATION TIME ACTIVATED (test code = ACT) 206 SECONDS Performed by certified calender machine operator helper at [facility] BASIC METABOLIC [id number] 11:35:00* Test Item Value Reference Range Interpretation Comme nts SODIUM (test code = NA) 141 mEq/L 134-147 N POTASSIUM (test code = K) 3.8 mEq/L 3.4-5.0 N CHLORIDE (test code = CL) 107 mEq/L 100-108 N CARBON DIOXIDE (test code = CO2) 28 mEq/l 21-33 N ANION GAP (test code = GAP) 10 0-20 N GLUCOSE (test code = GLU) 84 mg/dL 77-141 N BLOOD UREA NITROGEN (test code = BUN) 24 mg/dL 7-25 N GLOMERULAR FILTRATION RATE (test code = GFR) 53.2 70-80 L The Glomerular Filtration Rate is a calculated parameterbased on serum Creatinine, patient age and sex. GFR valuesless than 60 mL/min/1.73 square meters are indicative ofChronic Kidney Disease. Values less than 15 mL/min/1.73square meters indicate Kidney failure. The calculation forGFR is based on the CKD-EPI (2020) calculation. This formulais race indifferent and is the recommended formula for GFRby the National Kidney Foundation for Adults.The GFR will not calculate if the sex is unknown or if thepatient's age is <18 years. CREATININE (test code = CREAT) 1.3 mg/dL 0.6-1.3 N CALCIUM (test code = CA) 9.0 mg/dL 8.0-10.5 N PROTHROMBIN [id number] 11:33:00* Test Item Value Reference Range Interpretation Comme nts PROTHROMBIN TIME PATIENT (test code = PTP) 12.1 SECONDS 9.3-12.9 N INTERNATIONAL NORMAL RATIO (test code = INR) 1.1 0.8-1.2 N TARGET INR BY INDICATION Indication INR1. Prophylaxis of venous thrombosis 2.0 - 3.0 (orthopedic surgery), Prophylaxis of venous thrombosis (other than high-risk surgery), Treatment of Deep Vein Thrombosis/Pulmonary Embolism, Prevention of systemic embolism - Tissue heart valves, Acute Myocardial Infarction (to prevent systemic embolism), Valvular heart disease, Atrial Fibrillation, Bileaflet mechanical valve in aortic position.2. Mechanical prosthetic valves (high risk), 2.5 - 3.5 Presence of Lupus Anticoagulant or Antiphospholipid Antibodies, Prevention of systemic embolism - Acute Myocardial Infarction (to prevent recurrent infarct). CBC W/AUTO [id number] 11:31:00* Test Item Value Reference Range Interpretation Comme nts WHITE BLOOD CELL (test code = WBC) 7.1 x10 3/uL 4.5-11.0 N RED BLOOD CELL (test code = RBC) 3.40 x10 6/uL 4.00-5.60 L HEMOGLOBIN (test code = HGB) 10.7 g/dL 12.5-16.9 L HEMATOCRIT (test code = HCT) 32.7 % 37.5-50.7 L MEAN CELL VOLUME (test code = MCV) 96.2 fL 81.0-99.0 N MEAN CELL HGB (test code = MCH) 31.5 pg 27.0-33.0 N MEAN CELL HGB CONCETRATION (test code = MCHC) 32.7 g/dL 33.0-37.0 L RED CELL DISTRIBUTION WIDTH CV (test code = RDW) 14.1 % 11.5-14.5 N RED CELL DISTRIBUTION WIDTH SD (test code = RDW-SD) 48.9 fL 37.0-54.0 N PLATELET COUNT (test code = PLT) 264 x10 3/uL 150-400 N MEAN PLATELET VOLUME (test c ode = MPV) 9.7 fL 7.0-9.0 H NEUTROPHIL % (test code = NT%) 60.0 % 56.0-77.0 N IMMATURE GRANULOCYTE % (test code = IG%) 0.3 % 0.0-2.0 N LYMPHOCYTE % (test code = LY%) 31.0 % 14.0-32.0 N MONOCYTE % (test code = MO%) 5.8 % 4.8-9.0 N EOSINOPHIL % (test code = EO%) 2.3 % 0.3-3.7 N BASOPHIL % (test code = BA%) 0.6 % 0.0-2.0 N NUCLEATED RBC % (test code = NRBC%) 0.0 % 0-0 N NEUTROPHIL # (test code = NT#) 4.27 x10 3/uL 2.0-7.6 N IMMATURE GRANULOCYTE # (test code = IG#) 0.02 x10 3/uL 0.00-0.03 N LYMPHOCYTE # (test code = LY#) 2.20 x10 3/uL 1.0-3.8 N MONOCYTE # (test code = MO#) 0.41 x10 3/uL 0.1-0.8 N EOSINOPHIL # (test code = EO#) 0.16 x10 3/uL 0.0-0.2 N BASOPHIL # (test code = BA#) 0.04 x10 3/uL 0.0-0.2 N NUCLEATED RBC # (test code = NRBC#) 0.00 x10 3/uL 0.0-0.1 N BASIC METABOLIC [id number] 12:01:00* Test Item Value Reference Range Interpretation Comme [...] H BLOOD UREA NITROGEN (test code = BUN) 18 mg/dL 7-18 N GLOMERULAR FILTRATION RATE (test code = GFR) 63.8 70-80 L Units of measure = ml/min/1.73 m2 CREATININE (test code = CREAT) 1.1 mg/dL 0.6-1.3 N CALCIUM (test code = CA) 9.0 mg/dL 8.0-10.5 N PROTHROMBIN [id number] 11:59:00* Test Item Value Reference Range Interpretation Comme nts PROTHROMBIN TIME PATIENT (test code = PTP) 20.9 SECONDS 9.3-12.9 H INTERNATIONAL NORMAL RATIO (test code = INR) 1.9 0.8-1.2 H TARGET INR BY INDICATION Indication INR1. Prophylaxis of venous thrombosis 2.0 - 3.0 (orthopedic surgery), Prophylaxis of venous thrombosis (other than high-risk surgery), Treatment of Deep Vein Thrombosis/Pulmonary Embolism, Prevention of systemic embolism - Tissue heart valves, Acute Myocardial Infarction (to prevent systemic embolism), Valvular heart disease, Atrial Fibrillation, Bileaflet mechanical valve in aortic position.2. Mechanical prosthetic valves (high risk), 2.5 - 3.5 Presence of Lupus Anticoagulant or Antiphospholipid Antibodies, Prevention of systemic embolism - Acute Myocardial Infarction (to prevent recurrent infarct). CBC W/AUTO [id number] 11:54:00* Test Item Value Reference Range Interpretation Comme nts WHITE BLOOD CELL (test code = WBC) 7.3 x10 3/uL 4.5-11.0 N RED BLOOD CELL (test code = RBC) 3.98 x10 6/uL 4.00-5.60 L HEMOGLOBIN (test code = HGB) 11.9 g/dL 12.5-16.9 L HEMATOCRIT (test code = HCT) 36.6 % 37.5-50.7 L MEAN CELL VOLUME (test code = MCV) 92.0 fL 81.0-99.0 N MEAN CELL HGB (test code = MCH) 29.9 pg 27.0-33.0 N MEAN CELL HGB CONCETRATION (test code = MCHC) 32.5 g/dL 33.0-37.0 L RED CELL DISTRIBUTION WIDTH CV (test code = RDW) 13.1 % 11.5-14.5 N RED CELL DISTRIBUTION WIDTH SD (test code = RDW-SD) 43.8 fL 37.0-54.0 N PLATELET COUNT (test code = PLT) 292 x10 3/uL 150-400 N MEAN PLATELET VOLUME (test c ode = MPV) 9.6 fL 7.0-9.0 H NEUTROPHIL % (test code = NT%) 64.0 % 56.0-77.0 N IMMATURE GRANULOCYTE % (test code = IG%) 0.3 % 0.0-2.0 N LYMPHOCYTE % (test code = LY%) 26.2 % 14.0-32.0 N MONOCYTE % (test code = MO%) 6.1 % 4.8-9.0 N EOSINOPHIL % (test code = EO%) 2.8 % 0.3-3.7 N BASOPHIL % (test code = BA%) 0.6 % 0.0-2.0 N NUCLEATED RBC % (test code = NRBC%) 0.0 % 0-0 N NEUTROPHIL # (test code = NT#) 4.66 x10 3/uL 2.0-7.6 N IMMATURE GRANULOCYTE # (test code = IG#) 0.02 x10 3/uL 0.00-0.03 N LYMPHOCYTE # (test code = LY#) 1.90 x10 3/uL 1.0-3.8 N MONOCYTE # (test code = MO#) 0.44 x10 3/uL 0.1-0.8 N EOSINOPHIL # (test code = EO#) 0.20 x10 3/uL 0.0-0.2 N BASOPHIL # (test code = BA#) 0.04 x10 3/uL 0.0-0.2 N NUCLEATED RBC # (test code = NRBC#) 0.00 x10 3/uL 0.0-0.1 N MANUAL DIFF REQUIRED (test c ode = MDIFF) NO CBC W/AUTO [id number] 11:48:00* Test Item Value Reference Range Interpretation Comme nts WHITE BLOOD CELL (test code = WBC) x10 3/uL 4.5-11.0 RED BLOOD CELL (test code = RBC) x10 6/uL 4.00-5.60 HEMOGLOBIN (test code = HGB) g/dL 12.5-16.9 HEMATOCRIT (test code = HCT) % 37.5-50.7 MEAN CELL VOLUME (test code = MCV) fL 81.0-99.0 MEAN CELL HGB (test code = MCH) pg 27.0-33.0 MEAN CELL HGB CONCETRATION ( test code = MCHC) g/dL 33.0-37.0 RED CELL DISTRIBUTION WIDTH CV (test code = RDW) % 11.5-14.5 PLATELET COUNT (test code = PLT) 292 x10 3/uL 150-400 N NEUTROPHIL % (test code = NT%) % 56.0-77.0 LYMPHOCYTE % (test code = LY%) % 14.0-32.0 NEUTROPHIL # (test code = NT#) x10 3/uL 2.0-7.6 LYMPHOCYTE # (test code = LY#) x10 3/uL 1.0-3.8 MANUAL DIFF REQUIRED (test c ode = MDIFF) COVID 19 Asymptomatic IH [id number] 11:26:00* Test Item Value Reference Range Interpretation Comme nts COVID 19 Asymptomatic IH AG (test code = COVNONPUIAG) Negative Negative A negative resul t is presumptive and should be confirmedwith an FDA authorized molecular assay, if necessary forpatient management.A positive result does not rule out co-infections withother pathogens.This test detects both viable (live) and non-viable,SARS-CoV, and SARS-CoV-2. Test performance depends on theamount of virus (antigen) in the sample.This test has not been FDA cleared or approved; the test hasbeen authorized by FDA under an Emergency Use Authorization(EUA) for use by laboratories certified under the CLIA thatmeet the requirements to perform moderate, high or waivedcomplexity tests. BASIC METABOLIC [id number] 08:09:00* Test Item Value Reference Range Interpretation Comme nts SODIUM (test code = NA) 140 mEq/L 134-147 N POTASSIUM (test code = K) 3.6 mEq/L 3.4-5.0 N CHLORIDE (test code = CL) 109 mEq/L 100-108 H CARBON DIOXIDE (test code = CO2) 24 mEq/l 21-33 N ANION GAP (test code = GAP) 11 0-20 N GLUCOSE (test code = GLU) 199 mg/dL 70-110 H BLOOD UREA NITROGEN (test code = BUN) 20 mg/dL 7-18 H GLOMERULAR FILTRATION RATE (test code = GFR) 63.8 70-80 L Units of measure = ml/min/1.73 m2 CREATININE (test code = CREAT) 1.1 mg/dL 0.6-1.3 N CALCIUM (test code = CA) 8.8 mg/dL 8.0-10.5 N CBC W/AUTO [id number] 07:10:00* Test Item Value Reference Range Interpretation Comme nts WHITE BLOOD CELL (test code = WBC) 9.4 x10 3/uL 4.5-11.0 N RED BLOOD CELL (test code = RBC) 3.79 x10 6/uL 4.00-5.60 L HEMOGLOBIN (test code = HGB) 11.7 g/dL 12.5-16.9 L HEMATOCRIT (test code = HCT) 34.8 % 37.5-50.7 L MEAN CELL VOLUME (test code = MCV) 91.8 fL 81.0-99.0 N MEAN CELL HGB (test code = MCH) 30.9 pg 27.0-33.0 N MEAN CELL HGB CONCETRATION (test code = MCHC) 33.6 g/dL 33.0-37.0 N RED CELL DISTRIBUTION WIDTH CV (test code = RDW) 12.9 % 11.5-14.5 N RED CELL DISTRIBUTION WIDTH SD (test code = RDW-SD) 43.1 fL 37.0-54.0 N PLATELET COUNT (test code = PLT) 304 x10 3/uL 150-400 N MEAN PLATELET VOLUME (test c ode = MPV) 9.8 fL 7.0-9.0 H NEUTROPHIL % (test code = NT%) 86.4 % 56.0-77.0 H IMMATURE GRANULOCYTE % (test code = IG%) 0.3 % 0.0-2.0 N LYMPHOCYTE % (test code = LY%) 10.6 % 14.0-32.0 L MONOCYTE % (test code = MO%) 2.6 % 4.8-9.0 L EOSINOPHIL % (test code = EO%) 0.0 % 0.3-3.7 L BASOPHIL % (test code = BA%) 0.1 % 0.0-2.0 N NUCLEATED RBC % (test code = NRBC%) 0.0 % 0-0 N NEUTROPHIL # (test code = NT#) 8.12 x10 3/uL 2.0-7.6 H IMMATURE GRANULOCYTE # (test code = IG#) 0.03 x10 3/uL 0.00-0.03 N LYMPHOCYTE # (test code = LY#) 1.00 x10 3/uL 1.0-3.8 N MONOCYTE # (test code = MO#) 0.24 x10 3/uL 0.1-0.8 N EOSINOPHIL # (test code = EO#) 0.00 x10 3/uL 0.0-0.2 N BASOPHIL # (test code = BA#) 0.01 x10 3/uL 0.0-0.2 N NUCLEATED RBC # (test code = NRBC#) 0.00 x10 3/uL 0.0-0.1 N MANUAL DIFF REQUIRED (test c ode = MDIFF) NO CBC W/AUTO [id number] 07:07:00* Test Item Value Reference Range Interpretation Comme nts WHITE BLOOD CELL (test code = WBC) x10 3/uL 4.5-11.0 RED BLOOD CELL (test code = RBC) x10 6/uL 4.00-5.60 HEMOGLOBIN (test code = HGB) g/dL 12.5-16.9 HEMATOCRIT (test code = HCT) % 37.5-50.7 MEAN CELL VOLUME (test code = MCV) fL 81.0-99.0 MEAN CELL HGB (test code = MCH) pg 27.0-33.0 MEAN CELL HGB CONCETRATION ( test code = MCHC) g/dL 33.0-37.0 RED CELL DISTRIBUTION WIDTH CV (test code = RDW) % 11.5-14.5 PLATELET COUNT (test code = PLT) 304 x10 3/uL 150-400 N NEUTROPHIL % (test code = NT%) % 56.0-77.0 LYMPHOCYTE % (test code = LY%) % 14.0-32.0 NEUTROPHIL # (test code = NT#) x10 3/uL 2.0-7.6 LYMPHOCYTE # (test code = LY#) x10 3/uL 1.0-3.8 MANUAL DIFF REQUIRED (test c ode = MDIFF) [id number] 15:40:00* Test Item Value Reference Range Interpretation Comme nts ACT-ISTAT (test code = ACTI) 241 SEC 74-137 H Performed by cer tified calender machine operator helper at [facility] [id number] 15:40:00* Test Item Value Reference Range Interpretation Comme nts ACT-ISTAT (test code = ACTI) 246 SEC 74-137 H Performed by cer chela calender machine operator helper at [facility] Novel Coronavirus 2019 [id number] 19:40:00* Test Item Value Reference Range Interpretation Comme nts Novel Coronavirus 2019 Inhouse (test code = COVNONPUI) Negative Negative Positive resul ts are indicative of the presence foSCGE-GbJ-2 RNA, clinical correlation with patient historyand other diagnostic information is necessary to determinepatient infection status. Positive results do not rule outbacterial infection or co-infection with other viruses. Negative results do not preclude SARS-CoV-2 infection andshould not be used as the sole basis for patient managementdecisions. Negative results must be combined with otherclinical observations, patient history, and epidemiologicalinformation . Detection of SARS-CoV-2 RNA may be affected bysample collection methods, storage conditions, and/or stageof infection. Viral RNA mutations, vaccinations, antiviraltherapeutics, antibiotics, chemotherapeutic orimmunosuppressant drugs have not been evaluated for effectson detection. Results are for the identification of SARS-CoV-2 RNA usingthe [employer] M2000 System under the FDA Emergency UseAuthorization. The testing is performed by personneltrained in the procedures for the [employer] M2000 moleculardiagnostic SARS-CoV-2 assay in vitro. CBC W/AUTO [id number] 13:20:00* Test Item Value Reference Range Interpretation Comme nts WHITE BLOOD CELL (test code = WBC) 8.4 x10 3/uL 4.5-11.0 N RED BLOOD CELL (test code = RBC) 3.95 x10 6/uL 4.00-5.60 L HEMOGLOBIN (test code = HGB) 11.8 g/dL 12.5-16.9 L HEMATOCRIT (test code = HCT) 36.6 % 37.5-50.7 L MEAN CELL VOLUME (test code = MCV) 92.7 fL 81.0-99.0 N MEAN CELL HGB (test code = MCH) 29.9 pg 27.0-33.0 N MEAN CELL HGB CONCETRATION (test code = MCHC) 32.2 g/dL 33.0-37.0 L RED CELL DISTRIBUTION WIDTH CV (test code = RDW) 13.1 % 11.5-14.5 N RED CELL DISTRIBUTION WIDTH SD (test code = RDW-SD) 44.2 fL 37.0-54.0 N PLATELET COUNT (test code = PLT) 305 x10 3/uL 150-400 N MEAN PLATELET VOLUME (test c ode = MPV) 9.6 fL 7.0-9.0 H NEUTROPHIL % (test code = NT%) 63.5 % 56.0-77.0 N IMMATURE GRANULOCYTE % (test code = IG%) 0.4 % 0.0-2.0 N LYMPHOCYTE % (test code = LY%) 27.8 % 14.0-32.0 N MONOCYTE % (test code = MO%) 5.5 % 4.8-9.0 N EOSINOPHIL % (test code = EO%) 2.3 % 0.3-3.7 N BASOPHIL % (test code = BA%) 0.5 % 0.0-2.0 N NUCLEATED RBC % (test code = NRBC%) 0.0 % 0-0 N NEUTROPHIL # (test code = NT#) 5.36 x10 3/uL 2.0-7.6 N IMMATURE GRANULOCYTE # (test code = IG#) 0.03 x10 3/uL 0.00-0.03 N LYMPHOCYTE # (test code = LY#) 2.34 x10 3/uL 1.0-3.8 N MONOCYTE # (test code = MO#) 0.46 x10 3/uL 0.1-0.8 N EOSINOPHIL # (test code = EO#) 0.19 x10 3/uL 0.0-0.2 N BASOPHIL # (test code = BA#) 0.04 x10 3/uL 0.0-0.2 N NUCLEATED RBC # (test code = NRBC#) 0.00 x10 3/uL 0.0-0.1 N MANUAL DIFF REQUIRED (test c ode = MDIFF) NO - XR CHEST 2 [id number] 13:12:00 [facility] : 1935 Sex: M FAX: Rikki Ewing MD [phone] [place]: St: PRE Name: [facility] [place] : 1935ge/S: 84[address] Unit #: [id number] Loc: [place] [address] Phys: Rikki Goel MD Acct: [id number] Dis Date: Status: PRE SDC PHONE #: [phone] Exam Date: 03/16/2020 1259 FAX #: [phone] Reason: PRE PROCEDURE/AFIB EXAMS: CPT CODE: [id number] XR CHEST 2 V [id number] EXAM: PA and lateral chest. EXAM DATE: March 16, 2020 CLINICAL HISTORY: PRE PROCEDURE/AFIB COMPARISON:None Dual-lead pacemaker is present.Are size is within [...] Carmen(R) Trnscrd Date/Time/By: 03/16/2020 (1312) : By: [facility] OrigPrint D/T: S: 03/16/2020 (0176) PAGE 1 Signed ReportBASIC METABOLIC [id number] 12:51:00* Test Item Value Reference Range Interpretation Comme nts SODIUM (test code = NA) 141 mEq/L 134-147 N POTASSIUM (test code = K) 3.8 mEq/L 3.4-5.0 N CHLORIDE (test code = CL) 107 mEq/L 100-108 N CARBON DIOXIDE (test code = CO2) 29 mEq/l 21-33 N ANION GAP (test code = GAP) 9 0-20 N GLUCOSE (test code = GLU) 121 mg/dL 70-110 H BLOOD UREA NITROGEN (test code = BUN) 19 mg/dL 7-18 H GLOMERULAR FILTRATION RATE (test code = GFR) 57.7 70-80 L Units of measure = ml/min/1.73 m2 CREATININE (test code = CREAT) 1.2 mg/dL 0.6-1.3 N CALCIUM (test code = CA) 9.4 mg/dL 8.0-10.5 N [id number] 12:51:00* Test Item Value Reference Range Interpretation Comme nts PREALBUMIN (test code = PREALB) 18.2 mg/dL 16.0-40.0 N PROTHROMBIN [id number] 12:42:00* Test Item Value Reference Range Interpretation Comme nts PROTHROMBIN TIME PATIENT (test code = PTP) 18.8 SECONDS 9.3-12.9 H INTERNATIONAL NORMAL RATIO (test code = INR) 1.7 0.8-1.2 H TARGET INR BY INDICATION Indication INR1. Prophylaxis of venous thrombosis 2.0 - 3.0 (orthopedic surgery), Prophylaxis of venous thrombosis (other than high-risk surgery), Treatment of Deep Vein Thrombosis/Pulmonary Embolism, Prevention of systemic embolism - Tissue heart valves, Acute Myocardial Infarction (to prevent systemic embolism), Valvular heart disease, Atrial Fibrillation, Bileaflet mechanical valve in aortic position.2. Mechanical prosthetic valves (high risk), 2.5 - 3.5 Presence of Lupus Anticoagulant or Antiphospholipid Antibodies, Prevention of systemic embolism - Acute Myocardial Infarction (to prevent recurrent infarct). - CT HEART W CN STR MOR [id number] 13:43:00 [facility] KAUSHAL CARDONAName: RETA RAMOS : 1935 Sex: M Name: [facility] Kaushal Cardona : 1935 Age/S: 84 / M [address] [place] [address] Blvd Unit #: [id number] Loc: [place] [address] Phys: Rikki Goel MD Acct: [id number] Dis Date: Status: REG CLI PHONE #: [phone] Exam Date: 02/24/2020 1048 FAX #: [phone] Reason: AFIB, WATCHMAN EXAMS: CPT CODE: [id number] CT HEART W CN STR MOR [facility] [place] [address] angiogram with IV contrast (Pulmonary [...] 5 mm distal to vessel ostia): Right superiorpulmonary vein (RSPV): 23 mm. Right inferior pulmonary vein (RIPV): 19 mm. Left superior pulmonary vein (LSPV): 18 mm. Left inferior pulmonary vein (LIPV): 23 mm. Visualized lungs are clear. There are mild degenerative changes throughout the visualized thoracic spine. No acute or aggressive bony abnormality is present. Multiple hepatic hypodense structures likely represent cysts. Pacemaker is note d.. IMPRESSION: 1. Pulmonary vein measurements as above. 2. Pacemaker. 3. Probable hepatic cysts. Please note that vessels bifurcating at a distance equal to or greater than 5 mm from the expected outer margin of the left atrium are considered to have a common ostium. SL: [id number] PAGE 1 Signed Report (CONTINUED) Name: RETA RAMOS [facility] : 1935 Age/S: 84 / M [address] [place] [address] Blvd Unit #: [id number] Loc: [place] [address] Phys: Rikki Goel MD Acct: [id number] Dis Date: Status: REG CLI PHONE #: [phone] Exam Date: 02/24/2020 1048 FAX #: [phone] Reason: AFIB, WATCHMAN EXAMS: CPT CODE: [id number] CT HEART W CN STR MOR [facility] [place] [address] (Continued) at 1343 Reported and signed by: Jose Thornton M.D. CC: Rikki Goel MD Technologist:Karlo Morgan, RT(R) CTDI: DLP: Trnscb Date/Time: 02/24/2020 (1343) [id number] Orig Print D/T: S: 02/24/2020 (1346) PAGE 2 Signed Report
--- NOTE | 2024-03-12 11:51 | RAD REPORT ---
Procedure: Chest Single View HISTORY: Cough COMPARISON: June 2023 FINDINGS: Mild elevation right hemidiaphragm results in crowding of the pulmonary vessels. The lungs appear clear of acute infiltrate. No significant pleural effusion noted. The heart is mildly to moderately enlarged. Pacemaker leads in place.. IMPRESSION: No acute abnormality is displayed.
[2024-03-12 12:12] LABS: Absolute Eosinophils 0.2 K/uL (0-0.5); Absolute Lymphocytes (CBC) 1.5 K/uL (0.7-4.9); Absolute Monocytes 0.3 K/uL (0.1-1.3); Absolute Neutrophil 3.8 K/uL (1.8-8.0); Basophils % 0.6 % (0-1.3); Eosinophils % 2.7 % (0-4.4); Hematocrit 21.4 % (39.6-49.0); Hemoglobin 6.8 g/dL (13.6-17.9); Lymphocytes % 26.3 % (15.3-44.8); MCH 25.7 pg (27.0-35.0); MCHC 31.9 g/dL (32.0-36.0); MCV 80.7 fL (80-100); MPV 7.8 fL (7.6-11.3); Monocytes % 5.5 % (3.3-12.3); Neutrophils % 64.9 % (41.7-73.7); Platelets 251 thou/uL (152-406); RBC Red Blood Cell Count 2.65 M/uL (4.33-5.43); Red Cell Distribution Width 17.3 % (12.1-15.2)
[2024-03-12 12:27] LABS: SARS-CoV-2 Antigen CONTROL BLUE LINE VIS/BG OK; SARS-CoV-2 Antigen Rapid Res Negative (Negative)
[2024-03-12 12:30] LABS: Anion Gap 9.3 mEq/L (5.0-15.0); Potassium 4.3 mEq/L (3.5-5.1); Troponin High Sensitivity 11.5 pg/mL (<58.9)
[2024-03-12] MEDS ORDERED: FUROSEMIDE 40 MG/4 ML VIAL ONE (15:19)
[2024-03-12] MEDS ORDERED: NA CHLORIDE 0.9% 250 ML ONE (15:46)
--- NOTE | 2024-03-12 19:00 | ER ---
Nurse's Notes [facility] Name: Tony Orellana Age: 88 yrs Sex: Male : 1935 Arrival Date: 03/12/2024 Time: 11:04 Bed 15 Private MD: Diagnosis: Anemia, unspecified;Weakness;Dyspnea, unspecified Presentation: 03/12 11:14 Chief complaint: Patient states: Congestion, shortness of breath X 2 months. ld1 Coronavirus screen: At this time, the client does not indicate any symptoms associated with coronavirus-19. Ebola Screen: No symptoms or risks identified at this time. Initial Sepsis Screen: Does the patient meet any 2 criteria? No. Patient's initial sepsis screen is negative. Does the patient have a suspected source of infection? No. Patient's initial sepsis screen is negative. Risk Assessment: Do you want to hurt yourself or someone else? Patient reports no desire to harm self or others. Onset of symptoms was March 12, 2024. 11:14 Method Of Arrival: Ambulatory ld1 11:14 Acuity: JASON 3 ld1 Triage Assessment: 11:14 General: Appears in no apparent distress. comfortable, Behavior is calm, cooperative, ld1 appropriate for age. Pain: Denies pain. EENT: No deficits noted. Neuro: Level of Consciousness is awake, alert, obeys commands, Oriented to person, place, time, situation. Cardiovascular: Capillary refill < 3 seconds Patient's skin is warm and dry. Respiratory: Reports shortness of breath at rest on exertion Airway is patent Respiratory effort is even, unlabored, Onset: The symptoms/episode began/occurred suddenly, the patient has moderate shortness of breath. GI: Abdomen is flat, non-distended. : No signs and/or symptoms were reported regarding the genitourinary system. Derm: No signs and/or symptoms reported regarding the dermatologic system. Musculoskeletal: No signs and/or symptoms reported regarding the musculoskeletal system. Historical: - Allergies: 11:14 surgical tape; ld1 - PMHx: 11:14 Cerebrovascular accident; Hypercholesterolemia; Hypertension; Pacemaker; ld1 - PSHx: 11:14 Watchmen device; ld1 - Immunization history:: Adult Immunizations up to date. - Infectious Disease History:: Denies. - Social history:: Smoking status: Patient denies any tobacco usage or history of. Screenin:15 [facility] ED Fall Risk Assessment (Adult) History of falling in the last 3 months, jb4 including since admission No falls in past 3 months (0 pts) Confusion or Disorientation No (0 pts) Intoxicated or Sedated No (0 pts) Impaired Gait No (0 pts) Mobility Assist Device Used No (0 pt) Altered Elimination No (0 pt) Score/Fall Risk Level 0 - 2 = Low Risk Oriented to surroundings, Maintained a safe environment. Abuse screen: Denies threats or abuse. Nutritional screening: No deficits noted. Tuberculosis screening: No symptoms or risk factors identified. Assessment: 12:30 General: Appears in no apparent distress. comfortable, Behavior is calm, cooperative, cm10 appropriate for age. Pain: Denies pain. Neuro: No deficits noted. Level of Consciousness is awake, alert, obeys commands, Oriented to person, place, time, situation, Appropriate for age. Cardiovascular: Heart tones present Patient's skin is warm and dry. Edema is 2+ to left ankle and right ankle Rhythm is Respiratory: No deficits noted. Reports shortness of breath on exertion Airway is patent Respiratory effort is even, unlabored, Respiratory pattern is regular, symmetrical, Breath sounds are clear bilaterally. 12:57 General: Pt consented for blood transfusion at this time.. cm10 16:00 General: Blood transfusion initiated at this time at 75mL/hr. See transfusion record.. cm10 16:15 Reassessment: Pt tolerating blood transfusion well at this time. Rate increased to cm10 100mL. No signs of transfusion reaction. 17:00 Reassessment: Patient appears in no apparent distress at this time. Patient and/or cm10 family updated on plan of care and expected duration. Pain level reassessed. Patient is alert, oriented x 3, equal unlabored respirations, skin warm/dry/pink. 18:00 Reassessment: Patient appears in no apparent distress at this time. Patient and/or cm10 family updated on plan of care and expected duration. Pain level reassessed. Patient is alert, oriented x 3, equal unlabored respirations, skin warm/dry/pink. Pt tolerating blood transfusion well at this time. No S/S of transfusion reaction. 19:15 Reassessment: Patient appears in no apparent distress at this time. Patient and/or jb4 family updated on plan of care and expected duration. Pain level reassessed. Patient is alert, oriented x 3, equal unlabored respirations, skin warm/dry/pink. Blood transfusion finished. Vital Signs: 11:14 Pulse 59; Resp 18; Temp 98.1(TE); Pulse Ox 98% on R/A; Weight 88.45 kg; Height 5 ft. 10 ld1 in. ; Pain 0/10; 11:16 BP 144 / 64; ld1 12:30 BP 132 / 60; Pulse 60; Resp 15; Pulse Ox 97% ; cm10 15:58 BP 140 / 63; Pulse 60; Resp 20; Temp 97.5(O); Pulse Ox 100% on R/A; cm10 19:15 BP 148 / 72; Pulse 60; Resp 20; Temp 98.2(O); Pulse Ox 97% on R/A; jb4 11:14 Body Mass Index 27.98 (88.45 kg, 177.8 cm) ld1 11:14 Pain Scale: Adult ld1 ED Course: 11:06 Patient arrived in ED. mr 11:11 Kaleb Lozano MD is Attending Physician. ec2 11:14 Arm band placed on right wrist. ld1 11:16 Triage completed. ld1 11:29 XRAY Chest (1 view) In Process Unspecified. EDMS 11:30 Emily Castañeda RN is Primary Nurse. cm10 12:10 Inserted saline lock: 20 gauge in right antecubital area, using aseptic technique. kb4 Blood collected. Flushed with 10 mL NS. 12:10 Initial lab(s) drawn, by me, sent to lab. EKG done, by ED staff, reviewed by Kaleb Lozano MD COVID swab sent to lab. Flu and/or RSV swab sent to lab. 12:30 Client placed on continuous cardiac and pulse oximetry monitoring. NIBP monitoring cm10 applied. groundwater monitoring technician on. 13:10 Type And Screen Sent. cm10 13:10 T\T\S collected, blood band applied to patient. cm10 13:11 Provided Education on: Blood Transfusion. cm10 19:00 Report given to EMILIE Menjivar who assumes care of patient at this time. Blood transfusion cm10 continues. 19:15 Patient has correct armband on for positive identification. Bed in low position. Call jb4 light in reach. Side rails up X 1. 19:15 No provider procedures requiring assistance completed. IV discontinued, intact, jb4 bleeding controlled, No redness/swelling at site. Pressure dressing applied. Administered Medications: 15:39 Drug: Furosemide IVP 40 mg IVP once; give over 2 minutes Route: IVP; Site: right cm10 antecubital; 16:09 Follow up: Response: No adverse reaction cm10 Medication: 16:00 Blood products: PRBCs X 1 unit given. See transfusion record. cm10 19:15 VIS not applicable for this client. jb4 Outcome: 18:59 Discharge ordered by . ec2 19:15 Discharged to home ambulatory, jb4 19:15 Condition: stable 19:15 Discharge instructions given to patient, Instructed on discharge instructions, follow up and referral plans. Demonstrated understanding of instructions, follow-up care, 19:24 Patient left the ED. jb4 Signatures: Dispatcher [employer] EDMS Rosario Anderson, Reg Reg mr Hardy Kenny RN RN jb4 Yazmin Hightower RN RN [email or web address] Emily Castañeda RN RN cm10 Kaleb Lozaon MD MD ec2 Iza Castillo kb4 Corrections: (The following items were deleted from the chart) 19:41 16:00 General: Blood transfusion initiated at this time. See transfusion record.. cm10 cm10
--- NOTE | 2024-03-12 19:00 | EDPHYS ---
Physician Documentation [facility] Name: Tony Orellana Age: 88 yrs Sex: Male : 1935 Arrival Date: 03/12/2024 Time: 11:04 Bed 15 Private MD: ED Physician Kaleb Lozano HPI: 03/12 11:50 This 88 yrs old Male presents to ER via Ambulatory with complaints of ec2 Shortness Of Breath, Congestion. 11:50 Patient arrives today for evaluation of progressive shortness of breath. Complains of ec2 worsening breathing at night as well as with exertion. Denies chest pain. Reports lower extremity edema. Patient reports that he was previously on Lasix however was taken off of this over the past several months. Patient reports an occasional cough. No fevers or chills, no nausea or vomiting.. Historical: - Allergies: 11:14 surgical tape; ld1 - PMHx: 11:14 Cerebrovascular accident; Hypercholesterolemia; Hypertension; Pacemaker; ld1 - PSHx: 11:14 Watchmen device; ld1 - Immunization history:: Adult Immunizations up to date. - Infectious Disease History:: Denies. - Social history:: Smoking status: Patient denies any tobacco usage or history of. ROS: 11:50 Constitutional: as per hpi ec2 Exam: 11:50 Constitutional: GEN: NAD Head: atraumatic Eyes: EOMI Ears: External ears are ec2 normal. CV: regular rate, 2+ bilateral lower extremity edema. LUNGS: no respiratory distress ABD: non-distended SKIN: no evidence of rashes MSK: no evidence of trauma Vital Signs: 11:14 Pulse 59; Resp 18; Temp 98.1(TE); Pulse Ox 98% on R/A; Weight 88.45 kg; Height 5 ft. 10 ld1 in. ; Pain 0/10; 11:16 BP 144 / 64; ld1 12:30 BP 132 / 60; Pulse 60; Resp 15; Pulse Ox 97% ; cm10 15:58 BP 140 / 63; Pulse 60; Resp 20; Temp 97.5(O); Pulse Ox 100% on R/A; cm10 19:15 BP 148 / 72; Pulse 60; Resp 20; Temp 98.2(O); Pulse Ox 97% on R/A; jb4 11:14 Body Mass Index 27.98 (88.45 kg, 177.8 cm) ld1 11:14 Pain Scale: Adult ld1 MDM: 11:16 Medical Screening Exam initiated ec2 11:50 Data reviewed: vital signs, nurses notes. ED course: Patient arrives today for ec2 orthopnea and dyspnea on exertion. Emanation yields lower extremity edema. Will obtain cardiac workup. EKG obtained, independently reviewed and interpreted by me, shows ventricularly paced rhythm at 60 without any concerning features. Will obtain lab work as well as chest x-ray. Suspect volume overload. Additionally considered other processes such as infection, pneumonia.. 12:49 ED course: Metabolic profile shows renal dysfunction with a creatinine 1.38 and a GFR ec2 49. CBC shows anemia with a hemoglobin was 6.8. BNP elevated at 1000. Troponin is within normal ranges. Chest x-ray shows no acute intrathoracic process. Will type and screen the patient, transfuse patient a unit of blood, give the patient Lasix as well. Patient has already indicated that he does not want to be admitted to the hospital. 12:55 ED course: Patient adamant that he did not want to be admitted for further workup for ec2 his anemia. Patient reports no dark stools. Patient is on Plavix.. 18:53 ED course: Patient transfusing without issue.. ec2 03/12 11:16 Order name: Basic Metabolic Panel; Complete Time: 12:48 ec2 03/12 11:16 Order name: CBC with Diff; Complete Time: 12:48 ec2 03/12 11:16 Order name: NT PRO-BNP; Complete Time: 12:48 ec2 03/12 11:16 Order name: Troponin HS; Complete Time: 12:48 ec2 03/12 11:16 Order name: Influenza Screen (a \T\ B); Complete Time: 12:48 ec2 03/12 11:16 Order name: SARS RAPID; Complete Time: 12:48 ec2 03/12 12:49 Order name: Type And Screen ec2 03/12 13:29 Order name: Packed RBC Leukored EDMA 03/12 11:16 Order name: XRAY Chest (1 view); Complete Time: 12:48 ec2 03/12 11:16 Order name: EKG; Complete Time: 11:17 ec2 03/12 11:16 Order name: Cardiac monitoring; Complete Time: 11:47 ec2 03/12 11:16 Order name: EKG - Nurse/Tech; Complete Time: 11:47 ec2 03/12 11:16 Order name: IV Saline Lock; Complete Time: 12:09 ec2 03/12 11:16 Order name: Labs collected and sent; Complete Time: 12:09 ec2 03/12 11:16 Order name: O2 Per Protocol; Complete Time: 12:09 ec2 03/12 11:16 Order name: O2 Sat Monitoring; Complete Time: 12:09 ec2 03/12 12:49 Order name: Consent for Blood Transfusion; Complete Time: 13:10 ec2 Administered Medications: 15:39 Drug: Furosemide IVP 40 mg IVP once; give over 2 minutes Route: IVP; Site: right cm10 antecubital; 16:09 Follow up: Response: No adverse reaction cm10 Disposition: 12:49 Critical Care:. ec2 Disposition Summary: 03/12/24 18:59 Discharge Ordered Notes: Location: Home ec2 Condition: Stable ec2 Diagnosis - Anemia, unspecified ec2 - Weakness ec2 - Dyspnea, unspecified ec2 Followup: ec2 - With: Private Physician - When: - Reason: Re-evaluation by your physician Discharge Instructions: - Discharge Summary Sheet ec2 - Anemia ec2 - Blood Transfusion, Adult, Care After ec2 Forms: - Medication Reconciliation Form ec2 - Antibiotic Education ec2 - Prescription Opioid Use ec2 - Patient Portal Instructions ec2 - Leadership Thank You Letter ec2 Critical care time excluding procedures: 12:49 Critical care time: Bedside Care: 30 minutes. Total time: 30 minutes ec2 Signatures: Dispatcher [employer] EDYazmin Kauffman RN RN ld1 Emily Castañeda RN RN cm10 Kaleb Lozano MD MD ec2 Corrections: (The following items were deleted from the chart) 13:31 12:49 PACKED RBC LEUKORED+BB.LAB.BRZ ordered. EDMS EDMS 13: 12:51 ABO/RH typing ordered. EDMS EDMS 13: 12:51 Antibody Screen ordered. EDMS EDMS
[2024-03-12 23:03] VITALS: O2SAT 97
[2024-03-12 23:05] VITALS: BP 148/72; TEMP 98.2
--- NOTE | 2024-03-14 15:12 | EKG ---
Test Date: 2024-03-12 Test Time: 11:43:18 Nailing Machine Operator Automatic: AYDEN MEASUREMENT RESULTS: Intervals: Rate: 60 [place]: QRSD: 164 QT: 500 QTc: 500 [place]: P: [place]: QRS: -74 T: 94 INTERPRETIVE STATEMENTS: Ventricular-paced rhythm Abnormal ECG Compared to ECG 12/27/2023 10:43:18 No significant changes Electronically Signed On 03-14-24 15:07:24 TOLL OPERATOR by Rikki Goel
== END 2024-03-12 19:24 | disposition home or self-care (01) ==
LOC: ER 11:04
DX: D64.9 Anemia, unspecified (principal); R53.1 Weakness; I10 Essential (primary) hypertension; Z95.0 Presence of cardiac pacemaker; Z11.52 Encounter for screening for COVID-19
CPT/HCPCS: 93005; 85025; 80048; 36415; 86900; 86850; 86901; 86920; 84484; 83880; 87804 ×2; 71045; 36430; 96374; 99285; 87811; J1940; P9016; J7050